=== PATIENT | female | born 1960 | race Caucasian/White ===

== ENCOUNTER 2016-07-12 13:32 | Emergency (ER) | payer OTHER ==
[2016-07-12] MEDS ORDERED: ACETAMINOPHEN 325 MG TABLET PO ONE (13:47)
[2016-07-12] MEDS ORDERED: HYDROCODONE/ACETAMINOPHEN 5-325 MG TABLET PO ONE (16:37)
--- NOTE | 2016-07-12 17:03 | ER Document Report ---
ED Fall - General Time seen by provider: 16:35 Mode of Arrival: Ambulatory Information source: Patient - HPI Patient complains to provider of: Left forearm and left lower extremity pain Occurred: Just prior to arrival Where: Outdoors Context: Fell from height Associated symptoms: Other - see above Location of injury/pain: Other - see above - General Chief Complaint: Fall Stated Complaint: FALL;SUNSHINE INJURY Notes: 55 year old female with history of CVA, hypertension, hyperlipidemia, asthma, COPD, and migraines presents to the ED complaining of left forearm and left lower extremity pain secondary to a fall that occurred just prior to arrival. Patient states that she had 1 foot on a ladder and the other on a 2'x4'. Without paying attention, the patient shifted her foot from the ladder to the 2' x4' which proceeded to give out under her. Patient fell 5 feet onto the grass and landed on her right side. Patient denies hitting her head or having any neck pain. Patient denies loss of consciousness. (SHAHRAM LEES) Past Medical History - General Information source: Patient - Social History Smoking Status: Unknown if Ever Smoked Family History: Reviewed & Not Pertinent Review of Systems - Review of Systems Constitutional: No symptoms reported EENT: No symptoms reported Cardiovascular: No symptoms reported Respiratory: No symptoms reported Gastrointestinal: No symptoms reported Genitourinary: No symptoms reported Female Genitourinary: No symptoms reported Musculoskeletal: See HPI, Other - left forearm and left lower extremity pain Skin: No symptoms reported Hematologic/Lymphatic: No symptoms reported Neurological/Psychological: No symptoms reported -: Yes All other systems reviewed and negative Physical Exam - General General appearance: Alert In distress: None - HEENT Head: Normocephalic, Atraumatic Eyes: Normal Extraocular movements intact: Yes Pupils: PERRL - Respiratory Respiratory status: No respiratory distress Breath sounds: Normal - Cardiovascular Rhythm: Regular Heart sounds: Normal auscultation Normal capillary refill: Yes - Abdominal Inspection: Normal - Back Back: Normal - Extremities General upper extremity: Normal ROM. No: Normal inspection - see forearm and wrist exam General lower extremity: Normal ROM. No: Normal inspection - see calf exam below Shoulder: Ecchymosis - swelling and ecchymosis to the anterior aspect of the left forearm. No: Normal Wrist: Ecchymosis - swelling and ecchymosis to the distal anterior aspect of the left wrist. No: Normal Calf: Ecchymosis - Ecchymosis and swelling to the medial aspect of the anterior tibia - Neurological Neuro grossly intact: Yes Cognition: Normal Orientation: AAOx4 David Coma Scale Eye Opening: Spontaneous David Coma Scale Verbal: Oriented David Coma Scale Motor: Obeys Commands [place] Coma Scale Total: 15 Speech: Normal - Psychological Associated symptoms: Normal affect, Normal mood - Skin Skin Temperature: Warm Skin Moisture: Dry Skin Color: Normal Course - Consults Dr. Ann Time consulted: 18:30 - Re-evaluation Re-evalutation: 07/12/16 19:28 I personally performed the services described in the documentation, reviewed and edited the documentation which was dictated to my scribe in my presence, and it accurately records my words and actions. Patient presents emergency Department with arm pain and leg pain. Patient states she tripped and fell off about 5 feet injuring her left forearm and left lower extremity. On x-ray she has a closed fibular fracture which is oblique with 3 mm of displacement posteriorly. She's been splinted crutches nonweightbearing pain control I contacted Dr. ann at 1830 with no return phone call. I instructed the patient call first thing in the morning to be seen in follow up in 2-3 days ice elevation no evidence of compartment syndrome return for increasing worsening or new symptoms (ANNY PERRY) - Vital Signs Vital signs: Temp Pulse Resp BP Pulse Ox 98.5 F 62 16 128/65 H 98 07/12/16 20:27 07/12/16 20:27 07/12/16 20:27 07/12/16 20:27 07/12/16 20:27 - Consults Dr. Ann Reason for consultation: 07/12/16 18:30 Dr. Ann, orthopedist, was paged and will call back. (SHAHRAM LEES) Discharge - Discharge Clinical Impression: Closed fibular fracture Qualifiers: Encounter type: initial encounter Fibula location: distal Fracture morphology: unspecified fracture morphology Laterality: left Qualified Code(s): S82.832A - Other fracture of upper and lower end of left fibula, initial encounter for closed fracture Condition: Stable Disposition: HOME, SELF-CARE Additional Instructions: Fracture of Distal Fibula You have a fracture at the end of the fibula, the smaller bone in the lower leg. The fracture is across the bony bump on the outer side of the ankle. This fracture will usually heal well, but must be protected from the pull of ligaments and tendons at the ankle. If this fracture rotates out of position (or is felt likely to rotate), it must be operated on. Initially, the extremity should be kept elevated, with ice packs applied frequently. This fracture is usually treated with a cast or walking boot. If a walking boot has been selected, it's critical that it NOT be removed without the doctor's approval, not even for sleeping or baths. Healing of this fracture takes about four to eight weeks. Younger patients heal more quickly. An X-ray is usually required during healing to check for complications and to assess healing. Call the doctor or return at once if there is severe swelling, increasing pain, or numbness in the foot. Prescriptions: Oxycodone HCl/Acetaminophen [Percocet 5-325 mg Tablet] 1 - 2 tab PO Q4H PRN #15 tablet PRN Reason: Referrals: SHELBY HERNANDEZ MD [ACTIVE STAFF] - Follow up in 3-5 days (Call his office first thing in the morning to be seen and evaluated in 2-3 days return for increasing worsening or new symptoms. Do not put weight on your leg.) Scribe Documentation - Scribe Written by Bonilla:: Bonilla Sharma, 07/12/2016 0764 acting as scribe for :: Roderick
[2016-07-12 20:51] VITALS: BP 128/65
== END 2016-07-12 20:35 | disposition home or self-care (01) ==
LOC: ER 13:32
PROC: 2W3RX1Z Immobilization of Left Lower Leg using Splint (ICD-10-PCS; principal; 2016-07-12)
DX: S82.432A Displaced oblique fracture of shaft of left fibula, initial encounter for closed fracture (principal); S60.212A Contusion of left wrist, initial encounter; S50.12XA Contusion of left forearm, initial encounter; M79.632 Pain in left forearm; W11.XXXA Fall on and from ladder, initial encounter; I10 Essential (primary) hypertension; J45.909 Unspecified asthma, uncomplicated; J44.9 Chronic obstructive pulmonary disease, unspecified; Z86.73 Personal history of transient ischemic attack (TIA), and cerebral infarction without residual deficits
CPT/HCPCS: 99284

== ENCOUNTER 2016-07-28 20:52 | Emergency (ER) | payer OTHER, MEDICARE, MEDICAID ==
[2016-07-28 21:20] VITALS: BP 123/50
--- NOTE | 2016-07-28 21:45 | ER Document Report ---
ED Medical Screen (RME) - General Stated Complaint: LEG PAIN Notes: History is a 55-year-old female presents emergency Department with complaints of pain over left foot. Patient has a positive oblique distal fibula fracture. Patient is still in a splint and using crutches she has not followed up with surgery due to referral from [place] taking so long. I have counseled supervising physician Dr Moni Vaughn regarding this patient since she had evaluated her on intial diagnosis. She has recommended an US of the LE I have greeted and performed a rapid initial assessment of this patient. A comprehensive ED assessment and evaluation of the patient, analysis of test results and completion of the medical decision making process will be conducted by additional ED providers. (AVINASH SCHULTE) - Related Data Allergies/Adverse Reactions: codeine Adverse Reaction (Verified 07/28/16 21:43) Doctor's Discharge - Discharge Clinical Impression: Leg pain, left, s/p fibular fracture Condition: Stable Disposition: HOME, SELF-CARE Additional Instructions: Leg Pain, Nonspecific We did not find an obvious cause for your leg pain. There's no sign of blood clot, infection, or other serious disease. Possible causes of vague leg pain include muscle or joint inflammation, disc disease in the lower back, pressure on the nerves in the back, or reduced blood flow through the arteries of the leg. Rest the leg. Pain can be eased with an antiinflammatory pain medicine such as ibuprofen. If the pain involves a small area, a heating pad might help. Call the doctor or return if the leg becomes swollen, weak, discolored, or increasingly painful, or if you develop any other significant change in your health. I am giving her information to our manager case management see if she can get she will [facility]. Also having you come back tomorrow for a duplex ultrasound of the left lower extremity to make sure he would've a blood clot. Return for increasing worsening or new symptoms Forms: Follow-Up Outpatient Testing
[2016-07-28] MEDS ORDERED: ACETAMINOPHEN 325 MG TABLET PO ONE (21:52)
--- NOTE | 2016-07-28 22:56 | ER Document Report ---
ED Extremity Problem, Lower - General Mode of Arrival: Ambulatory Information source: Patient TRAVEL OUTSIDE OF THE [place] IN LAST 30 DAYS: No - General Chief Complaint: Leg Pain Stated Complaint: LEG PAIN Notes: Patient is a 55-year-old female that presents to the emergency department today with complaints of left lower extremity pain. Patient had a distal tib/fib fracture one month ago. Patient states she has not yet seen an orthopedic surgeon because [facility] Patient complains of left lower calf swelling. Patient denies shortness of breath. (AASHISH FRANCO) - Related Data Allergies/Adverse Reactions: codeine Adverse Reaction (Verified 07/28/16 21:43) Past Medical History - General Information source: Patient - Social History Smoking Status: Former Smoker Cigarette use (# per day): No Chew tobacco use (# tins/day): No Frequency of alcohol use: Occasional Drug Abuse: None Lives with: Family Family History: Reviewed & Not Pertinent Patient has suicidal ideation: No Patient has homicidal ideation: No - Medical History Medical History: Negative Surgical Hx: Negative Review of Systems - Review of Systems Constitutional: No symptoms reported EENT: No symptoms reported Cardiovascular: No symptoms reported Respiratory: No symptoms reported Gastrointestinal: No symptoms reported Genitourinary: No symptoms reported Female Genitourinary: No symptoms reported Musculoskeletal: See HPI, Other - LLE pain and swelling Skin: No symptoms reported Hematologic/Lymphatic: No symptoms reported Neurological/Psychological: No symptoms reported -: Yes All other systems reviewed and negative Physical Exam - General General appearance: Appears well, Alert In distress: None - HEENT Head: Normocephalic, Atraumatic Eyes: Normal Conjunctiva: Normal - Respiratory Respiratory status: No respiratory distress Chest status: Nontender Breath sounds: Normal - Cardiovascular Rhythm: Regular - Abdominal Inspection: Normal Distension: No distension Bowel sounds: Normal - Extremities General upper extremity: Normal inspection, Normal ROM. No: Edema General lower extremity: Other - Cast in place to left lower quadrant. Neurovascularly intact. Brisk capillary refill with good perfusion. No calf swelling. - Neurological Neuro grossly intact: Yes Cognition: Normal Orientation: AAOx4 Speech: Normal - Psychological Associated symptoms: Normal affect, Normal mood - Skin Skin Temperature: Warm Skin Moisture: Dry Skin Color: Normal Course - Re-evaluation Re-evalutation: 07/28/16 23:41 I personally performed the services described in the documentation, reviewed and edited the documentation which was dictated to my scribe in my presence, and it accurately records my words and actions. Patient presents emergency per chief plain and calf pain. I saw the patient on 221 diagnosed her with a distal fibular fracture splinted crutches nonweightbearing follow up with her primary care orthopedist. She states [facility] and she will be able to see an orthopedic surgeon for 6 months. She denies any new injuries numbness tingling weakness. She still has the same splint on that she had on when she was here. The [facility] outfront noticeable calf tenderness so she ordered a DVT ultrasound. Explained to the patient and the that it is not reasonable to wait 6 months to see an orthopedic surgeons make a decision on what the management needs to be surgical versus nonsurgical. I cannot Tawnya as she appropriately needs done. I'm going to give her information to the briefcase sewer when she gets here in the morning so she can review call the patient and try to find her a closer appointment with orthopedic. She states that she can't go anywhere but the [place] or [employer] pay poole. 07/28/16 23:53 (ANNY PERRY) - Vital Signs Vital signs: Temp Pulse Resp BP Pulse Ox 96.8 F L 75 18 123/50 L 96 07/29/16 00:30 07/29/16 00:30 07/29/16 00:30 07/28/16 21:19 07/29/16 00:30 Discharge - Discharge Clinical Impression: Leg pain, left, s/p fibular fracture Condition: Stable Disposition: HOME, SELF-CARE Additional Instructions: Leg Pain, Nonspecific We did not find an obvious cause for your leg pain. There's no sign of blood clot, infection, or other serious disease. Possible causes of vague leg pain include muscle or joint inflammation, disc disease in the lower back, pressure on the nerves in the back, or reduced blood flow through the arteries of the leg. Rest the leg. Pain can be eased with an antiinflammatory pain medicine such as ibuprofen. If the pain involves a small area, a heating pad might help. Call the doctor or return if the leg becomes swollen, weak, discolored, or increasingly painful, or if you develop any other significant change in your health. I am giving her information to our briefcase sewer see if she can get she will [facility]. Also having you come back tomorrow for a duplex ultrasound of the left lower extremity to make sure he would've a blood clot. Return for increasing worsening or new symptoms Forms: Follow-Up Outpatient Testing Scribe Documentation - Scribe Written by Bonilla:: Bonilla Rowley, 07/29/2016 0032 acting as scribe for :: Roderick
== END 2016-07-29 00:30 | disposition home or self-care (01) ==
LOC: ER 20:52
DX: S82.402D Unspecified fracture of shaft of left fibula, subsequent encounter for closed fracture with routine healing (principal); M79.605 Pain in left leg; Z87.891 Personal history of nicotine dependence; X58.XXXD Exposure to other specified factors, subsequent encounter
CPT/HCPCS: 99283

== ENCOUNTER 2016-11-12 18:07 | Emergency (ER) | payer OTHER, MEDICARE, MEDICAID ==
[2016-11-12] MEDS ORDERED: ASPIRIN 81 MG TABLET, CHEWABLE PO ONE (18:34)
--- NOTE | 2016-11-12 18:41 | ER Document Report ---
ED Medical Screen (RME) - General Chief Complaint: Chest Pain Stated Complaint: CHEST PAIN, ARM PAIN Time Seen by Provider: 11/12/16 18:33 TRAVEL OUTSIDE OF THE [place] IN LAST 30 DAYS: No - HPI Notes: 11/12/16 18:40 Patient presents with chest pain ongoing greater than 24 hours with associated shortness of breath. Patient had a recent CT [facility] that was [facility]. Patient also currently is in a walking boot due to broken tib-fib with recent travel - Related Data Allergies/Adverse Reactions: codeine Adverse Reaction (Verified 11/12/16 18:11) Past Medical History Renal/ Medical History: Denies: Hx Peritoneal Dialysis Review of Systems - Review of Systems Cardiovascular: Chest pain, Dyspnea Physical Exam - Vital signs Vitals: Temp Pulse Resp BP Pulse Ox 98.9 F 96 18 125/82 96 11/12/16 18:12 11/12/16 18:12 11/12/16 18:12 11/12/16 18:12 11/12/16 18:12 - Cardiovascular Rhythm: Regular Heart sounds: Normal auscultation Course - Vital Signs Vital signs: Temp Pulse Resp BP Pulse Ox 98.9 F 96 18 125/82 96 11/12/16 18:12 11/12/16 18:12 11/12/16 18:12 11/12/16 18:12 11/12/16 18:12
[2016-11-12 19:01] LABS: ABSOLUTE EOSINOPHILS # (AUTO) 0.1 10^3/uL (0.0-0.6); ABSOLUTE LYMPHOCYTES (AUTO) 1.8 10^3/uL (0.5-4.7); ABSOLUTE MONOCYTES (AUTO) 0.4 10^3/uL (0.1-1.4); ABSOLUTE NEUT (AUTO) 3.5 10^3/uL (1.7-8.2); BASOPHILS % (AUTO) 0.8 % (0-2); EOSINOPHILS % (AUTO) 1.5 % (0-6); HEMATOCRIT 42.8 % (36.0-47.0); HEMOGLOBIN 13.9 g/dL (12.0-15.5); HGB HCT DIFFERENCE -1.1; LYMPHOCYTES % (AUTO) 30.6 % (13-45); MEAN CORPUSCULAR HEMOGLOBIN 28.6 pg (27.0-33.4); MEAN CORPUSCULAR HGB CONC 32.5 g/dL (32.0-36.0); MEAN CORPUSCULAR VOLUME 88 fl (80-97); MONOCYTES % (AUTO) 6.6 % (3-13); RED BLOOD COUNT 4.87 10^6/uL (3.72-5.28); RED CELL DISTRIBUTION WIDTH 13.7 % (11.5-14.0); SEGMENTED NEUTROPHILS % (AUTO) 60.5 % (42-78); WHITE BLOOD COUNT 5.8 10^3/uL (4.0-10.5)
[2016-11-12 19:05] LABS: PROTHROMBIN TIME 12.9 SEC (11.4-15.4)
--- NOTE | 2016-11-12 19:05 | RADIOLOGY REPORT (SQ) ---
EXAM DESCRIPTION: CHEST PA/LAT COMPLETED DATE/TIME: 11/12/2016 6:58 pm REASON FOR STUDY: cp COMPARISON: None. EXAM PARAMETERS: NUMBER OF VIEWS: two views TECHNIQUE: Digital Frontal and Lateral radiographic views of the chest acquired. RADIATION DOSE: NA LIMITATIONS: none FINDINGS: LUNGS AND PLEURA: No opacities, masses or pneumothorax. No pleural effusion. MEDIASTINUM AND HILAR STRUCTURES: No masses or contour abnormalities. HEART AND VASCULAR STRUCTURES: Heart normal size. No evidence for failure. BONES: No acute findings. HARDWARE: None in the chest. OTHER: No other significant finding. IMPRESSION: NO SIGNIFICANT RADIOGRAPHIC FINDING IN THE CHEST. TECHNICAL DOCUMENTATION: JOB ID: [id number] [employer]- All Rights Reserved
[2016-11-12 19:08] LABS: D-DIMER 0.31 ug/mL (0.00-0.50)
[2016-11-12 19:16] LABS: ALANINE AMINOTRANSFERASE 44 U/L (9-52); ALBUMIN 4.5 g/dL (3.5-5.0); ALKALINE PHOSPHATASE 91 U/L (38-126); ANION GAP 13 (5-19); ASPARTATE AMINO TRANSFERASE 33 U/L (14-36); BILIRUBIN,DIRECT 0.3 mg/dL (0.0-0.4); BILIRUBIN,TOTAL 0.6 mg/dL (0.2-1.3); BLOOD UREA NITROGEN 13 mg/dL (7-20); CALCIUM 9.7 mg/dL (8.4-10.2); CARBON DIOXIDE 23 mmol/L (22-30); CHLORIDE 108 mmol/L (98-107); CREATINE KINASE 41 U/L (30-135); CREATININE RESULT 1.02 mg/dL (0.52-1.25); GLUCOSE 128 mg/dL (75-110); LIPASE 133.7 U/L (23-300); POTASSIUM 3.9 mmol/L (3.6-5.0); TOTAL PROTEIN 7.7 g/dL (6.3-8.2)
[2016-11-12 19:27] LABS: CREATINE KINASE MB 0.44 ng/mL (<4.55)
[2016-11-12 19:36] LABS: TROPONIN I < 0.012 ng/mL
--- NOTE | 2016-11-12 19:36 | ER Document Report ---
ED General - General Chief Complaint: Chest Pain Stated Complaint: CHEST PAIN, ARM PAIN Time Seen by Provider: 11/12/16 18:33 Mode of Arrival: Ambulatory Information source: Patient Notes: 55-year-old female history of hypertension hyperlipidemia brain aneurysm presents with complaints of chest pain. Patient notes 2 weeks ago she started having sharp pains in her chest, the pain then moved over to left-sided chest as a pressure sensation with feeling warm down the left arm to the neck. Patient also admits to feeling off balance joint pains TRAVEL OUTSIDE OF THE [place] IN LAST 30 DAYS: No - HPI Onset: Other - 2 week duration Onset/Duration: Persistent Quality of pain: Pressure, Sharp Severity: Mild Pain Level: 1 Associated symptoms: Chest pain, Other Exacerbated by: Denies Relieved by: Denies Similar symptoms previously: No Recently seen / treated by doctor: No - Related Data Allergies/Adverse Reactions: codeine Adverse Reaction (Verified 11/12/16 18:11) Past Medical History - Social History Smoking Status: Never Smoker Cigarette use (# per day): No Chew tobacco use (# tins/day): No Smoking Education Provided: No Family History: Reviewed & Not Pertinent Patient has suicidal ideation: No Patient has homicidal ideation: No Renal/ Medical History: Denies: Hx Peritoneal Dialysis Review of Systems - Review of Systems Notes: REVIEW OF SYSTEMS: CONSTITUTIONAL : Denies fever, chills, or sweats. Denies recent illness. EENT: Denies eye, ear, throat, or mouth pain or symptoms. Denies nasal or sinus congestion or discharge. Denies throat, tongue, or mouth swelling or difficulty swallowing. CARDIOVASCULAR: admits to chest pain RESPIRATORY: Denies cough, cold, or chest congestion. Denies shortness of breath, difficulty breathing, or wheezing. GASTROINTESTINAL: Denies abdominal pain or distention. Denies nausea, vomiting , or diarrhea. Denies blood in vomitus, stools, or per rectum. Denies black, tarry stools. Denies constipation. GENITOURINARY: Denies difficulty urinating, painful urination, burning, frequency, blood in urine, or discharge. FEMALE GENITOURINARY: Denies vaginal bleeding, heavy or abnormal periods, irregular periods. Denies vaginal discharge or odor. MUSCULOSKELETAL: Denies back or neck pain or stiffness. Denies joint pain or swelling. SKIN: Denies rash, lesions or sores. HEMATOLOGIC : Denies easy bruising or bleeding. LYMPHATIC: Denies swollen, enlarged glands. NEUROLOGICAL: admits to headache PSYCHIATRIC: Denies anxiety or stress. Denies depression, suicidal ideation, or homicidal ideation. ALL OTHER SYSTEMS REVIEWED AND NEGATIVE. PHYSICAL EXAMINATION: GENERAL: Well-appearing, well-nourished and in no acute distress. HEAD: Atraumatic, normocephalic. EYES: Pupils equal round and reactive to light, extraocular movements intact, conjunctiva are normal. ENT: Nares patent, oropharynx clear without exudates. Moist mucous membranes. NECK: Normal range of motion, supple without lymphadenopathy LUNGS: Breath sounds clear to auscultation bilaterally and equal. No wheezes rales or rhonchi. HEART: Regular rate and rhythm without murmurs ABDOMEN: Soft, nontender, nondistended abdomen. No guarding, no rebound. No masses appreciated. Female : deferred Musculoskeletal: Normal range of motion, no pitting or edema. No cyanosis. NEUROLOGICAL: Cranial nerves grossly intact. Normal speech, normal gait. Normal sensory, motor exams PSYCH: Normal mood, normal affect. SKIN: Warm, Dry, normal turgor, no rashes or lesions noted. Dictation was performed using [employer] voice recognition software Physical Exam - Vital signs Vitals: Temp Pulse Resp BP Pulse Ox 98.9 F 96 18 125/82 96 11/12/16 18:12 11/12/16 18:12 11/12/16 18:12 11/12/16 18:12 11/12/16 18:12 Course - Re-evaluation Re-evalutation: 11/12/16 19:42 Patient has very vague complaints of headache chest pain joint pain, lab work imaging is pending at this time 11/12/16 21:20 CTA head chest abdomen no no acute abnormality, patient otherwise looks well. Given that the chest pains been ongoing now for 2 weeks I do not believe there is any life-threatening issues especially with negative workup. Patient has been instructed that she must follow up with primary care evaluate symptoms and very strict return precautions have been provided After performing a Medical Screening Examination, I estimate there is LOW risk for RUPTURED ESOPHAGUS, PNEUMOTHORAX, PULMONARY EMBOLISM, ACUTE CORONARY SYNDROME, OR THORACIC AORTIC DISSECTION, thus I consider the discharge disposition reasonable. I have reevaluated this patient multiple times and no significant life threatening changes are noted. The patient and I have discussed the diagnosis and risks, and we agree with discharging home with close follow-up. We also discussed returning to the Emergency Department immediately if new or worsening symptoms occur. We have discussed the symptoms which are most concerning (e.g., bloody sputum, worsening pain or shortness of breath) that necessitate immediate return. - Vital Signs Vital signs: Temp Pulse Resp BP Pulse Ox 98.9 F 96 16 118/65 98 11/12/16 18:12 11/12/16 18:12 11/12/16 21:09 11/12/16 21:09 11/12/16 21:09 - Laboratory Result Diagrams: 11/12/16 18:46 11/12/16 18:46 Laboratory results interpreted by me: 11/12/16 18:46 Chloride 108 H Est GFR (Non-Af Amer) 56 L Glucose 128 H - Diagnostic Test Radiology reviewed: Image reviewed, Reports reviewed - Image reports given to patient no acute abnormality - EKG Interpretation by Me EKG shows normal: Sinus rhythm, [place], Intervals, QRS Complexes Discharge - Discharge Clinical Impression: Body aches Joint pain Qualifiers: Joint pain location: unspecified Qualified Code(s): M25.50 - Pain in unspecified joint Chest pain Qualifiers: Chest pain type: unspecified Qualified Code(s): R07.9 - Chest pain, unspecified Condition: Stable Disposition: HOME, SELF-CARE Instructions: Chest Pain of Unclear Cause ([facility]) Additional Instructions: Follow up with your physician tomorrow for further care or return to the ED IMMEDIATELY if symptoms worsen or new concerns occur. If you cannot afford to follow up with your primary care physician a list of low cost clinics have been provided at the end of your discharge papers as well.
[2016-11-12] MEDS ORDERED: NORMAL SALINE 1000 ML 1,000 ML IV ONE (20:56)
--- NOTE | 2016-11-12 21:06 | RADIOLOGY REPORT (SQ) ---
EXAM DESCRIPTION: CTA CHEST COMPLETED DATE/TIME: 11/12/2016 8:48 pm REASON FOR STUDY: CARCAMO, hx of aneurysm COMPARISON: None. TECHNIQUE: CT scan of the chest performed using helical scanning technique with dynamic intravenous contrast injection. Images reviewed with lung, soft tissue and bone windows. Reconstructed coronal and sagittal MPR images reviewed. Additional 3 dimensional post-processing performed to develop Maximal Intensity Projection images (AR P). All images stored on PACS. All CT scanners at this facility use dose modulation, iterative reconstruction, and/or weight based d osing when appropriate to reduce radiation dose to as low as reasonably achievable (ALARA). [facility]: Dose Right [facility]: CareDose [facility]: Dose Right [facility]: Teradose 4D [facility]: Kngroo CONTRAST TYPE AND DOSE: 150 mL Isovue 300- low osmolar. RENAL FUNCTION: BUN 13; creatinine 1.02 RADIATION DOSE: Up-to-date CT equipment and radiation dose reduction techniques were employed. CTDIv ol: 29.8 mGy. DLP: 1112 mGy-cm. . LIMITATIONS: None. FINDINGS: LUNGS AND PLEURA: No masses, infiltrates, pneumothorax. No pleural effusions, calcificati ons. AORTA AND GREAT VESSELS: No aneurysm or dissection. HEART: No pericardial effusion. PULMONARY ARTERIES: No emboli visualized in the main pulmonary arteries or the segmental branches. HILAR AND MEDIASTINAL STRUCTURES: No identified masses or abnormal nodes. HARDWARE: None in the chest. UPPER ABDOMEN: Incidental note is made of a 1.5 cm nodule involving the body of the right adrenal gla nd ; this is incompletely evaluated. THYROID AND OTHER SOFT TISSUES: No masses. No adenopathy. BONES: No acute or significant finding. 3D MIPS: Confirm above findings. OTHER: No other significant finding. IMPRESSION: 1. NORMAL CTA OF THE CHEST. NO PULMONARY EMBOLI. 2. 1.5 cm nodular thickening of the right adrenal gland; this is incompletely evaluated. Recommend dedicated CT or MR imaging on an outpatient basis. TECHNICAL DOCUMENTATION: JOB ID: [id number] Quality ID # [id number]: Final reports with documentation of one or more dose reduction techniques (e.g., Au tomated exposure control, adjustment of the mA and/or kV according to patient size, use of iterative reconstruction technique) 2010 [employer]- All Rights Reserved
--- NOTE | 2016-11-12 21:16 | RADIOLOGY REPORT (SQ) ---
EXAM DESCRIPTION: CTA HEAD COMPLETED DATE/TIME: 11/12/2016 8:49 pm REASON FOR STUDY: CARCAMO, hx of aneurysm COMPARISON: None. TECHNIQUE: Post IV contrast scanning, thin section axial imaging through the brain to evaluate the a rterial structures. Source and MIP images are saved and reviewed on PACS. Advanced 3D imaging as volume-rendering, MIPs, SSD performed? yes All CT scanners at this facility use dose modulation, iterative reconstruction, and/or weight based d osing when appropriate to reduce radiation dose to as low as reasonably achievable (ALARA). [facility]: Dose Right [facility]: CareDose [facility]: Dose Right [facility]: Teradose 4D [facility]: [employer] CONTRAST TYPE AND DOSE: contrast/concentration: Isovue 370.00 mg/ml; Total Contrast Delivered: 70.0 ml; Total Saline Delivered: 75.0 ml RENAL FUNCTION: BUN 13; creatinine 1.02 LIMITATIONS: Apparent aneurysm coil results in beam hardening artifact limiting evaluation of the an terior components of the [place] of [place]. Additionally, this was performed in conjunction with a CT A of the chest, resulting in partially opacified venous structures. FINDINGS: [place]: A metallic aneurysm coil is seen in the expected location of the anterio r communicating artery, limiting evaluation of the surrounding soft tissues. The visualized segments of the anterior, middle, posterior cerebral arteries are all patent. No evidence of aneurysm or foc al stenosis. POSTERIOR CIRCULATION: The distal vertebral arteries are patent as is the basilar artery. No aneurysm . BRAIN: No gross enhancing lesions as visualized. The superior cerebral hemispheres are not included in the field of view. BONES: Intact as visualized. Incidental note is made of partially sclerosed right mastoid air cells consistent with sequela of previous chronic mastoiditis. SINUSES: No fluid or mucosal thickening. OTHER: No other significant finding. IMPRESSION: Vascular coil is seen in the expected location of the anterior communicating artery limi ting evaluation of the adjacent structures. No evidence of aneurysm, intracranial hemorrhage, or enh ancing lesion. TECHNICAL DOCUMENTATION: JOB ID: [id number] Quality ID # [id number]: Final reports with documentation of one or more dose reduction techniques (e.g., Au tomated exposure control, adjustment of the mA and/or kV according to patient size, use of iterative reconstruction technique) 2010 [employer]- All Rights Reserved
[2016-11-12 22:12] VITALS: BP 123/64
--- NOTE | 2016-11-12 22:17 | EKG REPORT ---
SEVERITY:- NORMAL ECG - SINUS RHYTHM : Confirmed by: Baylee Monsalve 12-Nov-2016 22:16:19
== END 2016-11-12 22:06 | disposition home or self-care (01) ==
LOC: ER 18:07
DX: R07.9 Chest pain, unspecified (principal); M25.50 Pain in unspecified joint; M79.602 Pain in left arm; I10 Essential (primary) hypertension; E78.5 Hyperlipidemia, unspecified; R52 Pain, unspecified
CPT/HCPCS: 93005; 99285; 96360; 36415; 82553; 82550; 83690; 85025; 85610; 80053; 84484; 85379; 71020; 70496; 71275; 93010; J7030

== ENCOUNTER 2017-03-21 17:10 | Emergency (ER) | payer OTHER, MEDICARE, MEDICAID ==
--- NOTE | 2017-03-21 18:11 | ER Document Report ---
ED Medical Screen (RME) - General Chief Complaint: Fall Stated Complaint: HEAD INJURY Time Seen by Provider: 03/21/17 18:10 Notes: Patient has a history of a coiled brain aneurysm. She is on Plavix. She states she had several martinis 3 days ago and fell and hit her head in the bathtub. She states she does not remember the incident. states that he brought the patient in the emergency department because she has been having some dizziness and confusion. She has had some nausea but no vomiting. She states her last alcoholic drink was 3 days ago. TRAVEL OUTSIDE OF THE [place] IN LAST 30 DAYS: No - Related Data Allergies/Adverse Reactions: codeine Adverse Reaction (Verified 03/21/17 17:19) Past Medical History - Social History Chew tobacco use (# tins/day): No Frequency of alcohol use: Social Drug Abuse: None - Past Medical History Cardiac Medical History: Reports: Hx Hypercholesterolemia, Hx Hypertension Renal/ Medical History: Denies: Hx Peritoneal Dialysis Past Surgical History: Reports: Hx Abdominal Surgery, Hx Hysterectomy - Immunizations Hx Diphtheria, Pertussis, Tetanus Vaccination: Yes History of Influenza Vaccine for 02/2017 - 07/2017 Season: No Physical Exam - Vital signs Vitals: Temp Pulse Resp BP Pulse Ox 98.9 F 87 18 130/72 H 97 03/21/17 17:17 03/21/17 17:17 03/21/17 17:17 03/21/17 17:17 03/21/17 17:17 Course - Vital Signs Vital signs: Temp Pulse Resp BP Pulse Ox 98.9 F 87 18 130/72 H 97 03/21/17 17:17 03/21/17 17:17 03/21/17 17:17 03/21/17 17:17 03/21/17 17:17
[2017-03-21 18:39] LABS: ABSOLUTE EOSINOPHILS # (AUTO) 0.1 10^3/uL (0.0-0.6); ABSOLUTE LYMPHOCYTES (AUTO) 1.8 10^3/uL (0.5-4.7); ABSOLUTE MONOCYTES (AUTO) 0.4 10^3/uL (0.1-1.4); ABSOLUTE NEUT (AUTO) 3.3 10^3/uL (1.7-8.2); BASOPHILS % (AUTO) 0.8 % (0-2); EOSINOPHILS % (AUTO) 1.4 % (0-6); HEMOGLOBIN 15.1 g/dL (12.0-15.5); HGB HCT DIFFERENCE 0.3; MEAN CORPUSCULAR HEMOGLOBIN 29.7 pg (27.0-33.4); MEAN CORPUSCULAR HGB CONC 33.5 g/dL (32.0-36.0); MEAN CORPUSCULAR VOLUME 89 fl (80-97); MONOCYTES % (AUTO) 6.8 % (3-13); RED BLOOD COUNT 5.08 10^6/uL (3.72-5.28); RED CELL DISTRIBUTION WIDTH 13.7 % (11.5-14.0); WHITE BLOOD COUNT 5.6 10^3/uL (4.0-10.5)
[2017-03-21 18:52] LABS: ALANINE AMINOTRANSFERASE 43 U/L (9-52); ALBUMIN 5.1 g/dL (3.5-5.0); ALKALINE PHOSPHATASE 84 U/L (38-126); ANION GAP 18 (5-19); ASPARTATE AMINO TRANSFERASE 36 U/L (14-36); BILIRUBIN,DIRECT 0.3 mg/dL (0.0-0.4); BILIRUBIN,TOTAL 0.8 mg/dL (0.2-1.3); BLOOD UREA NITROGEN 15 mg/dL (7-20); CALCIUM 9.9 mg/dL (8.4-10.2); CARBON DIOXIDE 25 mmol/L (22-30); CHLORIDE 105 mmol/L (98-107); CREATININE RESULT 1.08 mg/dL (0.52-1.25); GLUCOSE 89 mg/dL (75-110); SODIUM 147.7 mmol/L (137-145); TOTAL PROTEIN 8.3 g/dL (6.3-8.2)
--- NOTE | 2017-03-21 18:59 | RADIOLOGY REPORT (SQ) ---
EXAM DESCRIPTION: CT HEAD WITHOUT COMPLETED DATE/TIME: 03/21/2017 6:48 pm REASON FOR STUDY: fall/ams COMPARISON: None. TECHNIQUE: Axial images acquired through the brain without intravenous contrast. Images reviewed wi th bone, brain and subdural windows. Images stored on PACS. All CT scanners at this facility use dose modulation, iterative reconstruction, and/or weight based d osing when appropriate to reduce radiation dose to as low as reasonably achievable (ALARA). [facility]: Dose Right [facility]: CareDose [facility]: Dose Right [facility]: Teradose 4D [facility]: [employer] RADIATION DOSE: Up-to-date CT equipment and radiation dose reduction techniques were employed. CTDIv ol: 64.6 mGy. DLP: 1034 mGy-cm. mGy. LIMITATIONS: None. FINDINGS: VENTRICLES: Normal size and contour. CEREBRUM: No masses. No hemorrhage. No midline shift. No evidence for acute infarction. Normal gra y/white matter differentiation. No areas of low density in the white matter. CEREBELLUM: No masses. No hemorrhage. No alteration of density. No evidence for acute infarction. EXTRAAXIAL SPACES: No fluid collections. No masses. ORBITS AND GLOBE: No intra- or extraconal masses. Normal contour of globe without masses. CALVARIUM: No fracture. PARANASAL SINUSES: No fluid or mucosal thickening. SOFT TISSUES: No mass or hematoma. OTHER: There is a small clip near the midline just above the pituitary fossa. IMPRESSION: No acute intracranial findings. EVIDENCE OF ACUTE STROKE: NO. COMMENT: Quality ID # 436: Final reports with documentation of one or more dose reduction techniques (e.g., Automated exposure control, adjustment of the mA and/or kV according to patient size, use of iterative reconstruction technique) TECHNICAL DOCUMENTATION: JOB ID: [id number] [employer]- All Rights Reserved
[2017-03-21 19:00] LABS: ALCOHOL < 10 mg/dL (NONE DETECTED)
[2017-03-21 19:02] LABS: APPEARANCE,URINE SLIGHTLY-CLOUDY; BILIRUBIN,URINE NEGATIVE (NEGATIVE); GLUCOSE, URINE NEGATIVE (NEGATIVE); KETONES,URINE NEGATIVE (NEGATIVE); LEUKOCYTE ESTERASE,URINE NEGATIVE (NEGATIVE); NITRITE,URINE NEGATIVE (NEGATIVE); PROTEIN,URINE NEGATIVE (NEGATIVE); UROBILINOGEN,URINE NEGATIVE mg/dL (<2.0)
[2017-03-21 19:11] LABS: URINE BARBITURATES SCREEN NEGATIVE; URINE METHADONE SCREEN NEGATIVE; URINE OPIATES LOW NEGATIVE; URINE PHENCYCLIDINE SCREEN NEGATIVE
--- NOTE | 2017-03-21 20:03 | ER Document Report ---
ED Fall - General Chief Complaint: Fall Stated Complaint: HEAD INJURY Time Seen by Provider: 03/21/17 18:10 Notes: Patient says that she fell 4 days ago and hit the left side of her head does not remember exactly what happened. says she was not unconscious but was confused. She had been drinking a few martinis before the fall. She complains of pain of the left side of her head, blurry vision, feeling foggy, and balance off, although she can walk. Patient has had some nausea but has not vomited. No fevers. TRAVEL OUTSIDE OF THE [place] IN LAST 30 DAYS: No - Related data Allergies/Adverse Reactions: codeine Adverse Reaction (Verified 03/21/17 17:19) Past Medical History - Social History Smoking Status: Never Smoker Chew tobacco use (# tins/day): No Frequency of alcohol use: Social Drug Abuse: None Family History: Reviewed & Not Pertinent Patient has suicidal ideation: No Patient has homicidal ideation: No - Past Medical History Cardiac Medical History: Reports: Hx Hypercholesterolemia, Hx Hypertension Neurological Medical History: Reports: Hx Cerebrovascular Accident - 4 years ago , Hx Migraine Past Surgical History: Reports: Hx Abdominal Surgery, Hx Appendectomy, Hx Hysterectomy - Immunizations Hx Diphtheria, Pertussis, Tetanus Vaccination: Yes Review of Systems - Review of Systems Notes: REVIEW OF SYSTEMS: CONSTITUTIONAL : Denies fever. EENT: Denies eye, ear, nose or mouth or throat pain or other symptoms. CARDIOVASCULAR: Denies chest pain. RESPIRATORY: Denies cough, chest congestion, or shortness of breath. GASTROINTESTINAL: Denies abdominal pain or nausea, vomiting, or diarrhea. GENITOURINARY: Denies difficulty or painful urinating, urinary frequency, blood in urine. MUSCULOSKELETAL: Denies back or neck pain. Denies joint pain or swelling. History of fractured left leg and fractured left foot. SKIN: Denies rash or skin lesions. NEUROLOGICAL: Denies LOC or altered mental status. Has had headache of the left side of her head. Denies sensory loss or motor deficits. ALL OTHER SYSTEMS REVIEWED AND NEGATIVE. Physical Exam - Vital signs Vitals: Temp Pulse Resp BP Pulse Ox 98.9 F 87 18 130/72 H 97 03/21/17 17:17 03/21/17 17:17 03/21/17 17:17 03/21/17 17:17 03/21/17 17:17 Interpretation: Normal - Notes Notes: PHYSICAL EXAMINATION: GENERAL: Well-appearing, in no acute distress. Ambulatory without assistance. Vital signs are all normal. HEAD: Atraumatic, normocephalic. Tender left scalp, but no hematoma or soft tissue swelling present. EYES: Pupils equal round and reactive to light, extraocular movements intact. No nystagmus. ENT: oropharynx clear without exudates. Moist mucous membranes. NECK: Normal range of motion, supple. LUNGS: Breath sounds clear and equal bilaterally. HEART: Regular rate and rhythm without murmurs. ABDOMEN: Soft, nontender. No guarding or rebound. BACK: No tenderness throughout entire back. EXTREMITIES: Normal range of motion without pain. NEUROLOGICAL: Normal speech, normal gait. Normal sensory, motor, and reflex exams. Awake, alert, and oriented x3. Cranial nerves normal. PSYCH: Normal mood, normal affect. SKIN: Warm, dry, no rashes. Course - Vital Signs Vital signs: Temp Pulse Resp BP Pulse Ox 98 F 88 18 130/78 H 98 03/21/17 20:11 03/21/17 20:11 03/21/17 20:11 03/21/17 20:11 03/21/17 20:11 - Laboratory Result Diagrams: 03/21/17 18:10 03/21/17 18:10 Laboratory results interpreted by me: 03/21/17 03/21/17 18:10 18:10 Sodium 147.7 H Est GFR (Non-Af Amer) 53 L Total Protein 8.3 H Albumin 5.1 H Urine Ascorbic Acid 40 H - Diagnostic Test Radiology reviewed: Image reviewed, Reports reviewed - CT scan of the brain was normal. Discharge - Discharge Clinical Impression: Fall, Head injury, Concussion Condition: Stable Disposition: HOME, SELF-CARE Additional Instructions: HEAD INJURY PRECAUTIONS: At this point, there is no evidence that your head injury is serious. Observation is necessary, however. Take only clear liquids for the first few hours, unless told otherwise by the doctor. If no pain medication was prescribed, you may take acetaminophen according to the directions on the bottle. Do not take any medication that may alter your level of alertness (unless you've discussed it with the doctor first) . Limit activity for the first 24 hours. Bed rest is best. During the first 24 hours, check to see approximately every two to three hours that the patient is easily arousable, responds normally, and can perform common tasks such as walking without difficulty. Contact your doctor or go to the hospital if any of the following things occur: Persistent vomiting, difficulty in arousing the patient, worsening or continued headache, or failure to improve as expected. Head injuries can cause symptoms that persist for a few days or even a few weeks. Concussion You most likely have suffered a concussion -- a temporary loss of certain brain functions due to a mild brain injury. The recovery is usually rapid and complete. The temporary problems occurring with a concussion can include loss of consciousness, dizziness, nausea, vomiting, and confusion. Repeat concussions can cause brain damage. In the future, avoid activities that will cause a blow to your head. Wear a helmet for sports such as snowboarding, biking, or skating. It's important that someone be with you for the first 24 hours. During this time, do not exercise or drive a vehicle. Do not take any pain medication stronger than acetaminophen unless prescribed by the physician. Any significant changes should be reported immediately to the physician. Signs of a problem may include: (1) Mental confusion (2) Incoordination or staggering (3) Repeated or forceful vomiting (4) Clear or bloody drainage from ear, mouth, or nose (5) Severe headache, not relieved by acetaminophen or prescribed pain medication (6) Failure to improve in 24 hours NECK INJURY (CERVICAL STRAIN): You have a neck strain. This is an injury to the muscles and ligaments in the neck. There is no evidence of a fracture of the neck bones. Also, no injury to the spinal cord or nerve roots was detected. Usually, stiffness and pain INCREASE for the first 24-48 hours after the injury. The pain will gradually resolve and the neck will become more mobile. Most patients are back at work or school within a few days. Typically, complete healing takes about two or three weeks. The usual initial treatment is rest and cold packs. A neck collar may be placed to keep the muscles of the neck at rest. Antiinflammatory and muscle relaxing medication are often used to reduce the spasm and irritation. You should call the doctor, or go to the hospital, if you develop numbness or weakness in any extremity, problems with your bladder or bowel, or pain radiating down the arms. CONTUSION: Your injury has resulted in a contusion -- a crushing of the deep tissues. No injury to important structures was detected during the physician's exam. Contusions vary in the amount of pain they cause, and in the length of time required for healing. Typically, the area will become bruised, and will remain painful to touch for two or three weeks. However, most patients are back to working and playing within a few days. After the initial period of rest and cold-packs, your symptoms (together with the doctor's recommendations) will determine how rapidly you can get back to full activity. Usually this means "do what feels okay, but don't do things that hurt." If re-examination was recommended, it's important to follow up as instructed. Call the doctor or return any time if pain increases, if swelling becomes severe, if you develop numbness or weakness in an injured extremity, or if any other alarming symptoms occur. USE OF TYLENOL (ACETAMINOPHEN): Acetaminophen may be taken for pain relief or fever control. It's much safer than aspirin, offering a wider range of "safe" dosages. It is safe during . Some brand names are Tylenol, Panadol, Datril, Anacin 3, Tempra, and Liquiprin. Acetaminophen can be repeated every four hours. The following are maximum recommended dosages: WEIGHT Dose Drops Elixir Chewable( 80mg) (LBS.) drprs=droppers tsp=teaspoon >89 pounds or adults 650 mg to 900 mg Acetaminophen can be repeated every four hours. Maximum dose not to exceed 4000 mg a day. These maximum recommended dosages are slightly higher than the dosages written on the product container, but these dosages are very safe and below the toxic dosage for acetaminophen. You may continue to take all of your current medications just as before. FOLLOW-UP CARE: If you have been referred to a physician for follow-up care, call the physician s office for an appointment as you were instructed or within the next two days. If you experience worsening or a significant change in your symptoms, notify the physician immediately or return to the Emergency Department at any time for re-evaluation.
[2017-03-21 20:12] VITALS: BP 130/78
== END 2017-03-21 20:11 | disposition home or self-care (01) ==
LOC: ER 17:10
DX: S06.0X9A Concussion with loss of consciousness of unspecified duration, initial encounter (principal); R11.0 Nausea; W19.XXXA Unspecified fall, initial encounter; E78.00 Pure hypercholesterolemia, unspecified; I10 Essential (primary) hypertension; Z86.73 Personal history of transient ischemic attack (TIA), and cerebral infarction without residual deficits; Z90.710 Acquired absence of both cervix and uterus
CPT/HCPCS: 36415; 70450; 80053; 80307; 81001; 85025; 99284

== ENCOUNTER 2017-09-09 19:33 | Inpatient (IN) | payer OTHER, MEDICARE, MEDICAID ==
--- NOTE | 2017-09-09 20:28 | ER Document Report ---
ED Medical Screen (RME) - General Mode of Arrival: Ambulatory Information source: Patient TRAVEL OUTSIDE OF THE [place] IN LAST 30 DAYS: No <FRANCISCO SWIFT - Last Filed: 09/09/17 20:24> <FELI HARO - Last Filed: 09/09/17 21:31> - General Chief Complaint: Altered Mental Status Stated Complaint: DIZZINESS Time Seen by Provider: 09/09/17 20:21 Notes: 56 y.o female presents to the ED for "lost in space moment". Son states that it was about 5-15 minutes to return to normal. didnt know wheer she was, why she was there. He asked her things she should know off the bat about the pets and gave the names of older pets that she used to live with. Started aroudn when they wokes. past 3 days had pain and numbness to left arm. had stumblin on her feet for the past coupld days, same amount of time her arm atarted to act up. Hx of stroke 5 years ago. (FRANCISCO SWIFT) - Related Data Allergies/Adverse Reactions: codeine Adverse Reaction (Verified 09/09/17 19:35) Past Medical History - General Information source: Patient, Relative - Past Medical History Cardiac Medical History: Reports: Hx Hypercholesterolemia, Hx Hypertension Neurological Medical History: Reports: Hx Cerebrovascular Accident - 4 years ago , Hx Migraine Renal/ Medical History: Denies: Hx Peritoneal Dialysis Past Surgical History: Reports: Hx Abdominal Surgery, Hx Appendectomy, Hx Hysterectomy - Immunizations Hx Diphtheria, Pertussis, Tetanus Vaccination: Yes History of Influenza Vaccine for 02/2017 - 07/2017 Season: No <FRANCISCO SWIFT - Last Filed: 09/09/17 20:24> Review of Systems - Review of Systems Constitutional: No symptoms reported EENT: No symptoms reported Cardiovascular: No symptoms reported Respiratory: No symptoms reported Gastrointestinal: No symptoms reported Genitourinary: No symptoms reported Female Genitourinary: No symptoms reported Musculoskeletal: No symptoms reported Skin: No symptoms reported Hematologic/Lymphatic: No symptoms reported Neurological/Psychological: See HPI, Confusion - "lost in space moment", Weakness, Numbness -: Yes All other systems reviewed and negative <FRANCISCO SIWFT - Last Filed: 09/09/17 20:24> Physical Exam <FRANCISCO SWIFT - Last Filed: 09/09/17 20:24> <FELI HARO - Last Filed: 09/09/17 21:31> - Vital signs Vitals: Temp Pulse Resp BP Pulse Ox 98.7 F 79 16 131/78 H 97 09/09/17 19:50 09/09/17 19:50 09/09/17 19:50 09/09/17 19:50 09/09/17 19:50 - Notes Notes: Physical Exam: General: Alert, appears well. HEENT: Normocephalic. Atraumatic. PERRLA. Extraocular movements intact. Neck: Supple. Respiratory: No respiratory distress. Abdominal: Normal Inspection. No distension. Extremities: Moves all four extremities. Neurological: Normal cognition. AAOx4. Normal speech. LT sided facial droop. LT arm and leg weakness. Psychological: Normal affect. Normal Mood. Skin: Warm. Dry. Normal color. (FRANCISCO SWIFT) Course <FRANCISCO SWIFT - Last Filed: 09/09/17 20:24> - Laboratory Result Diagrams: 09/09/17 20:50 09/09/17 20:50 <FELI HARO - Last Filed: 09/09/17 21:31> - Re-evaluation Re-evalutation: 09/09/17 21:30 Out of timeframe for TPA, symptoms showed up 3 days ago, discussed with patient and family members why they were not eligible for TPA. (FELI HARO) - Vital Signs Vital signs: Temp Pulse Resp BP Pulse Ox 98.7 F 79 16 131/78 H 97 09/09/17 19:50 09/09/17 19:50 09/09/17 19:50 09/09/17 19:50 09/09/17 19:50 Scribe Documentation - Scribe Written by Bonilla:: Bonilla Lucia 09/09/172025 acting as scribe for :: David <FRANCISCO SWIFT - Last Filed: 09/09/17 20:24>
--- NOTE | 2017-09-09 20:54 | RADIOLOGY REPORT (SQ) ---
EXAM DESCRIPTION: CT HEAD WITHOUT COMPLETED DATE/TIME: 09/09/2017 8:38 pm REASON FOR STUDY: left sided weakness onset 3 days ago COMPARISON: 2017. TECHNIQUE: Axial images acquired through the brain without intravenous contrast. Images reviewed wi th bone, brain and subdural windows. Additional sagittal and coronal reconstructions were generated. Images stored on PACS. All CT scanners at this facility use dose modulation, iterative reconstruction, and/or weight based d osing when appropriate to reduce radiation dose to as low as reasonably achievable (ALARA). [facility]: Dose Right [facility]: CareDose [facility]: Dose Right [facility]: Teradose 4D [facility]: [employer] RADIATION DOSE: CT Rad equipment meets quality standard of care and radiation dose reduction techniq ues were employed. CTDIvol: 53.2 mGy. DLP: 1017 mGy-cm. mGy. LIMITATIONS: None. FINDINGS: VENTRICLES: Normal size and contour. CEREBRUM: No masses. No hemorrhage. No midline shift. No evidence for acute infarction. Normal gra y/white matter differentiation. No areas of low density in the white matter. CEREBELLUM: No masses. No hemorrhage. No alteration of density. No evidence for acute infarction. EXTRAAXIAL SPACES: No fluid collections. No masses. ORBITS AND GLOBE: No intra- or extraconal masses. Normal contour of globe without masses. CALVARIUM: No fracture. PARANASAL SINUSES: No fluid or mucosal thickening. SOFT TISSUES: No mass or hematoma. OTHER: Midline anterior inferior brain coils likely related to previous anterior communicating artery aneurysm treatment. IMPRESSION: No acute or suspicious intracranial abnormality. Stable exam. EVIDENCE OF ACUTE STROKE: NO. COMMENT: Quality ID # [id number]: Final reports with documentation of one or more dose reduction techniques (e.g., Automated exposure control, adjustment of the mA and/or kV according to patient size, use of iterative reconstruction technique) TECHNICAL DOCUMENTATION: JOB ID: [id number] [employer]- All Rights Reserved Reading location - IP/workstation name: [email or web address]
--- NOTE | 2017-09-09 20:55 | RADIOLOGY REPORT (SQ) ---
EXAM DESCRIPTION: CHEST SINGLE VIEW COMPLETED DATE/TIME: 09/09/2017 8:44 pm REASON FOR STUDY: left sided weakness onset 3 days ago COMPARISON: 2016. NUMBER OF VIEWS: One view. TECHNIQUE: Single frontal radiographic view of the chest acquired. LIMITATIONS: None. FINDINGS: LUNGS AND PLEURA: No opacities, masses or pneumothorax. No pleural effusion. MEDIASTINUM AND HILAR STRUCTURES: No masses. Contour normal. HEART AND VASCULAR STRUCTURES: Heart normal in size. Normal vasculature. BONES: No acute findings. HARDWARE: None in the chest. OTHER: No other significant finding. IMPRESSION: NO SIGNIFICANT RADIOGRAPHIC FINDING IN THE CHEST. TECHNICAL DOCUMENTATION: JOB ID: [id number] [employer]- All Rights Reserved Reading location - IP/workstation name: [email or web address]
--- NOTE | 2017-09-09 21:27 | ER Document Report ---
ED General - General Chief Complaint: Altered Mental Status Stated Complaint: DIZZINESS Time Seen by Provider: 09/09/17 20:21 Mode of Arrival: Ambulatory TRAVEL OUTSIDE OF THE [place] IN LAST 30 DAYS: No - HPI Notes: Patient is a 56-year-old female with a history of COPD, hypertension, hypercholesterolemia, brain aneurysm status post coil, CVA 5 years ago, residual left-sided weakness status post CVA, migraines who presents to the ED with complaining of having most recent altered mental status 4 hours ago and intermittently x2-3 days. Son states that her symptoms lasted for about 15 minutes and then resolved. Son states that he was in the kitchen with her when she became "spacey." He began asking her questions that she should know about current and previous pets as well as her current location which she could not answer any of them without confusion. She also states that she does have chronic left-sided weakness since her stroke 5 years ago. Son states that she also has an intermittent facial droop when she smiles. Patient states that she feels well currently without any recurrence of the "spaciness." She has been eating and drinking without any difficulties. She is urinating normally and having normal bowel movements. She denies any IV drug use. Denies any headache , fever, head injury, neck pain, URI, sore throat, chest pain, palpitations, syncope, cough, shortness of breath, wheeze, dyspnea, abdominal pain, nausea/ vomiting/diarrhea, urinary retention, dysuria, hematuria, loss of control of bowel or bladder, numbness/tingling, saddle anesthesia, extremity paralysis, or rash. - Related Data Allergies/Adverse Reactions: codeine Adverse Reaction (Verified 09/09/17 19:35) Past Medical History - General Information source: Patient, Relative - Social History Smoking Status: Former Smoker Family History: Reviewed & Not Pertinent Patient has suicidal ideation: No Patient has homicidal ideation: No - Past Medical History Cardiac Medical History: Reports: Hx Hypercholesterolemia, Hx Hypertension Neurological Medical History: Reports: Hx Cerebrovascular Accident - 4 years ago , Hx Migraine Renal/ Medical History: Denies: Hx Peritoneal Dialysis Past Surgical History: Reports: Hx Abdominal Surgery, Hx Appendectomy, Hx Hysterectomy - Immunizations Hx Diphtheria, Pertussis, Tetanus Vaccination: Yes Review of Systems - Review of Systems -: Yes All other systems reviewed and negative Physical Exam - Vital signs Vitals: Temp Pulse Resp BP Pulse Ox 98.7 F 79 16 131/78 H 97 09/09/17 19:50 09/09/17 19:50 09/09/17 19:50 09/09/17 19:50 09/09/17 19:50 - Notes Notes: PHYSICAL EXAMINATION: accompanied by female nurse GENERAL: Well-appearing, well-nourished and in no acute distress. A&Ox4. Answers questions appropriately. HEAD: Atraumatic, normocephalic. Non-tender. EYES: Pupils equal round and reactive to light, extraocular movements intact, sclera anicteric, conjunctiva are normal. No nystagmus. Vis ravi intact. ENT: Nares patent and without discharge. oropharynx clear without exudates. No tonsilar hypertrophy or erythema. Moist mucous membranes. NECK: Normal range of motion, supple without lymphadenopathy. No rigidity. No midline tenderness. LUNGS: Breath sounds clear to auscultation bilaterally and equal. No wheezes rales or rhonchi. HEART: Regular rate and rhythm without murmurs, rubs, gallops. ABDOMEN: Soft, nontender, nondistended abdomen. No guarding, no rebound. No masses appreciated. Normal bowel sounds present. No CVA tenderness bilaterally. Musculoskeletal: Ext's b/l: FROM to passive/active. Strength 4+/5 on the left vs 5/5 right. No bony tenderness of extremities. Back: FROM to passive/active. Strength 5+/5. No vertebral point tenderness, stepoffs, or deformities. No other bony tenderness or ecchymosis. Extremities: No cyanosis, clubbing, or edema b/l. Peripheral pulses 2+. Capillary refill less than 2 seconds. NEUROLOGICAL: NIH 3 with left facial droop with smiling and left limb ataxia left arm/leg--pt reports chronic issue, see history. GCS 15. Cranial nerves grossly intact. Normal speech, normal gait. Normal sensory, motor exams. Reflexes 2+ b/l. THA's negative. Pronator drift negative. PSYCH: Normal mood, normal affect. SKIN: Warm, Dry, normal turgor, no rashes or lesions noted. Course - Re-evaluation Re-evalutation: 09/09/17 21:26 NIH 3, pt reports chronic left sided weakness and intermittent facial droop since CVA [address] head negative. CXR negative. 09/09/17 22:36 Patient is an afebrile, well-hydrated, 56-year-old female who presents to the ED with a suspected TIA and results altered mental status. Vitals are acceptable. PE is otherwise unremarkable at this time for any gross focal neurological deficits aside from what was noted in the exam. CBC, CMP, coags, cardiac enzymes/EKG, and imaging as above were unremarkable for any acute pathology. I reviewed this case with Dr. Matta, hospitalist, who accepted patient for admit. - Vital Signs Vital signs: Temp Pulse Resp BP Pulse Ox 98.7 F 66 10 L 105/77 92 09/09/17 19:50 09/09/17 20:48 09/09/17 21:01 09/09/17 21:01 09/09/17 21:01 - Laboratory Result Diagrams: 09/09/17 20:50 09/09/17 20:50 Laboratory results interpreted by me: 09/09/17 20:50 Sodium 148.3 H Chloride 108 H Est GFR (Non-Af Amer) 53 L Discharge - Discharge Clinical Impression: TIA (transient ischemic attack) Qualifiers: Transient cerebral ischemia type: unspecified Qualified Code(s): G45.9 - Transient cerebral ischemic attack, unspecified Altered mental status, unspecified Qualifiers: Altered mental status type: unspecified Qualified Code(s): R41.82 - Altered mental status, unspecified Condition: Stable Disposition: ADMITTED OBSERVATION Admitting Provider: Hospitalist - Dr. matta Unit Admitted: Telemetry Referrals: ALFREDO BRADLEY PA-C [Primary Care Provider] - Follow up as needed
[2017-09-09 21:32] LABS: ABSOLUTE LYMPHOCYTES (AUTO) 1.8 10^3/uL (0.5-4.7); ABSOLUTE MONOCYTES (AUTO) 0.4 10^3/uL (0.1-1.4); BASOPHILS % (AUTO) 0.7 % (0-2); EOSINOPHILS % (AUTO) 0.7 % (0-6); HEMATOCRIT 41.8 % (36.0-47.0); HEMOGLOBIN 13.9 g/dL (12.0-15.5); LYMPHOCYTES % (AUTO) 27.9 % (13-45); MEAN CORPUSCULAR HEMOGLOBIN 29.6 pg (27.0-33.4); MEAN CORPUSCULAR HGB CONC 33.2 g/dL (32.0-36.0); MEAN CORPUSCULAR VOLUME 89 fl (80-97); MONOCYTES % (AUTO) 6.5 % (3-13); PLATELET COUNT 234 10^3/uL (150-450); RED CELL DISTRIBUTION WIDTH 13.6 % (11.5-14.0); SEGMENTED NEUTROPHILS % (AUTO) 64.2 % (42-78); TOTAL CELLS COUNTED % (AUTO) 100 %; WHITE BLOOD COUNT 6.3 10^3/uL (4.0-10.5)
[2017-09-09 21:35] LABS: INTERNATIONAL RATION (INR) 0.96; PROTHROMBIN TIME 13.3 SEC (11.4-15.4)
[2017-09-09 21:36] LABS: PARTIAL THROMBOPLASTIN TIME 30.8 SEC (23.5-35.8)
[2017-09-09 21:53] LABS: ALANINE AMINOTRANSFERASE 34 U/L (9-52); ALBUMIN 4.5 g/dL (3.5-5.0); ALKALINE PHOSPHATASE 69 U/L (38-126); ANION GAP 15 (5-19); ASPARTATE AMINO TRANSFERASE 25 U/L (14-36); BILIRUBIN,DIRECT 0.4 mg/dL (0.0-0.4); BILIRUBIN,TOTAL 0.6 mg/dL (0.2-1.3); BLOOD UREA NITROGEN 11 mg/dL (7-20); CALCIUM 9.6 mg/dL (8.4-10.2); CARBON DIOXIDE 25 mmol/L (22-30); CHLORIDE 108 mmol/L (98-107); CREATINE KINASE 39 U/L (30-135); GLUCOSE 85 mg/dL (75-110); POTASSIUM 4.5 mmol/L (3.6-5.0); SODIUM 148.3 mmol/L (137-145); TOTAL PROTEIN 7.4 g/dL (6.3-8.2)
[2017-09-09 22:05] LABS: CREATINE KINASE MB 0.38 ng/mL (<4.55)
[2017-09-09 22:06] LABS: TROPONIN I < 0.012 ng/mL
[2017-09-09] MEDS ORDERED: NORMAL SALINE 1000 ML 1,000 ML IV ONE (22:32)
[2017-09-09] MEDS ORDERED: ONDANSETRON 4 MG TAB.RAPDIS PO PRN (23:58)
[2017-09-09] MEDS ORDERED: ACETAMINOPHEN 325 MG TABLET PO PRN (23:58)
[2017-09-10] MEDS ORDERED: ASPIRIN 325 MG TABLET, ENT COATED PO ONE (00:06)
--- NOTE | 2017-09-10 03:37 | PDOC H&P ---
History of Present Illness Admission Date/PCP: 09/09/17 23:07 ALFREDO BRADLEY PA-C Patient complains of: Increased confusion and worsening left-sided weakness around 5 PM. History of Present Illness: HERIBERTO BARBER is a 56 year old left-handed female with history of CVA with left-sided residual weakness and cerebral aneurysm (post coiling 5 years ago), migraine headaches and essential hypertension was admitted with above-mentioned complaints. Some of the history was obtained from her son at bedside. The patient apparently slept all day and woke up around 5 PM. She noticed that she was dizzy when she woke up but denied any lightheadedness or vertigo. And half an hour later, while sitting in the kitchen drinking her coffee and conversing with her son who was preparing dinner, she reportedly stopped talking abruptly. She seemed to be confused and was unable to answer very simple questions like where she was and the name of her cat and dogs around her. Her son did not report that she had any slurred speech but that she rather seemed to have very slow mentation. According to the patient, she felt increased weakness in both her left arm and leg and increased numbness in her left arm. But there was no report of any headache, visual disturbances, dysarthria or dysphagia. There was also no report of any loss of consciousness, seizure activity or postictal state. The episode lasted about 15 minutes, and by the time she got to the ED her symptoms seemed to be improving. She said that she is compliant with her medications. She takes 75 mg Plavix daily in addition to 80 mg Lipitor daily. The patient denied any chest pain, shortness of breath, cough or fever but she was having some chills. She said that she drinks occasional martini and her last drink was last night. She usually uses a cane to walk long distances which she does seldomly. In the ED, her temperature was 98.7, heart rate 79, respiratory rate 16, blood pressure 131/78 with oxygen saturation of 97% on room air. Her WBC was 6.3 and her blood glucose was 85. Her initial troponin was negative. Her chest x-ray and head CAT scan were both unremarkable. She received 325 mg aspirin 1. She is currently complaining of feeling" foggy" but she is able to understand and follow simple commands. Past Medical History Medical History: Other - According to the patient and based on previous records Cardiac Medical History: Reports: Hyperlipidema, Hypertension Neurological Medical History: Reports: Migraine GI Medical History: Reports: Gastroesophageal Reflux Disease Psychiatric Medical History: Reports: Depression Hematology: Reports: Other - B12 deficiency. Past Surgical History Past Surgical History: Reports: Appendectomy, Hysterectomy, Other - Lasik left eye. Social History Smoking Status: Former Smoker Cigarettes Packs Per Day: 0 - She used to smoke 1-1/2 pack a day for 40 years. She quit about 5 years ago. Frequency of Alcohol Use: Occasional - She drinks martini occasionally. The last drink was last night. Hx Recreational Drug Use: No - Advance Directive Resuscitation Status: Full Code Family History Family History: Reviewed & Not Pertinent Parental Family History Reviewed: Yes - Mother: Hypertension, maternal grandfather: CHF. Children Family History Reviewed: No Sibling(s) Family History Reviewed.: Yes Medication/Allergy Home Medications: Oxycodone HCl/Acetaminophen [Percocet 5-325 mg Tablet] 1 - 2 tab PO Q4H PRN #15 tablet 07/12/16 Allergies/Adverse Reactions: codeine Adverse Reaction (Verified 09/09/17 19:35) Review of Systems ROS unobtainable: Other - Pertinent positives and negatives as detailed in the HPI. Physical Exam Vital Signs: Temp Pulse Resp BP Pulse Ox 98.7 F 66 10 L 105/77 92 09/09/17 19:50 09/09/17 20:48 09/09/17 21:01 09/09/17 21:01 09/09/17 21:01 General appearance: PRESENT: no acute distress, well-developed, well-nourished Head exam: PRESENT: atraumatic, normocephalic Eye exam: PRESENT: EOMI, PERRLA. ABSENT: nystagmus, scleral icterus Mouth exam: PRESENT: moist, neck supple Neck exam: PRESENT: full ROM. ABSENT: carotid bruit, JVD Respiratory exam: PRESENT: clear to auscultation abbe. ABSENT: rales, rhonchi, wheezes Cardiovascular exam: PRESENT: RRR, +S1, +S2 Pulses: PRESENT: normal dorsalis pedis pul GI/Abdominal exam: PRESENT: normal bowel sounds, soft. ABSENT: distended, rebound, tenderness Rectal exam: PRESENT: deferred Extremities exam: ABSENT: pedal edema Musculoskeletal exam: PRESENT: other - Able to move all 4 extremities. Neurological exam: PRESENT: alert, altered, awake, oriented to person, oriented to place, oriented to time - Except day of the month., oriented to situation, CN II-XII grossly intact - excpt CNVIII., motor sensory deficit - Motor 3+/5 left upper and lower extremity otherwise 4+/5. Decreased sensation left side of her face, arm and leg. Left facial droop when she smiles. Left pronator drift. No Babinski or clonus, gait was not assessed. Results Laboratory Results: CBC: WBC 6.3, hemoglobin 13.9, hematocrit 41.8, MCV 89, RDW 13.6, platelets 234. PT/INR 13.3/0.96. CMP: Sodium 148.3, potassium 4.5, chloride 108, bicarb 25, anion gap 15, BUN 11 , creatinine 1.08, glucose 85, calcium 9.6, liver enzymes within normal limits. Troponin 1 negative. EKG Comments: Twelve-lead EKG: Sinus rhythm, ventricular rate 60, axis +60, no acute changes. Similar when compared to previous twelve-lead EKG done on 11/12/2016. Impressions: Chest X-Ray 09/09/17 20:27 IMPRESSION: NO SIGNIFICANT RADIOGRAPHIC FINDING IN THE CHEST. Head CT 09/09/17 20:27 IMPRESSION: No acute or suspicious intracranial abnormality. Stable exam. EVIDENCE OF ACUTE STROKE: NO. Assessment & Plan - Diagnosis (1) TIA (transient ischemic attack) Qualifiers: Transient cerebral ischemia type: unspecified Qualified Code(s): G45.9 - Transient cerebral ischemic attack, unspecified Is this a current diagnosis for this admission?: Yes Plan: The patient is not a candidate for TPA since her symptoms seem to be improving. It was difficult to obtain an accurate NIHSS score (possibly 5) given history of CVA with left hemiparesis. Her head CAT scan was negative. Will obtain a stroke workup including an MRI/MRA head, bilateral carotid Dopplers, echocardiogram, lipid profile and HbA1c. Will continue Plavix and add aspirin 81 mg daily in addition to 80 mg of Lipitor daily. (2) Acute encephalopathy Is this a current diagnosis for this admission?: Yes Plan: possibly secondary to TIA since it was brief. There was no report of any seizure activity or postictal state. Will follow-up stroke workup and check TSH and UA. She is on B12 supplements. The only recent change in her medications is the addition of an antihistamine for allergy but she said that she did not take it today. (3) Essential hypertension Is this a current diagnosis for this admission?: Yes Plan: Will continue to monitor and resume her home BP medications as indicated. (4) Hyperlipidemia Is this a current diagnosis for this admission?: Yes Plan: We will continue Lipitor. - Time Time Spent: 50 to 70 Minutes
[2017-09-10 06:13] LABS: CHOLESTEROL 124.75 mg/dL (0-200); TRIGLYCERIDES 120 mg/dL (<150)
[2017-09-10 06:24] LABS: DIRECT LDL 55 mg/dL (<100)
[2017-09-10] MEDS: LANSOPRAZOLE 30 MG TAB.RAP.DR PO SCH (06:27)
[2017-09-10] MEDS: HEPARIN SOD (PORCINE) 5,000 UNIT/ML 1 ML SYRINGE SUBCUT SCH ×3 (06:27→21:10)
--- NOTE | 2017-09-10 09:43 | EKG REPORT ---
SEVERITY:- NORMAL ECG - SINUS RHYTHM : Confirmed by: Baylee Monsalve 10-Sep-2017 09:42:00
[2017-09-10 10:26] LABS: APPEARANCE,URINE SLIGHTLY-CLOUDY; BILIRUBIN,URINE NEGATIVE (NEGATIVE); COLOR,URINE YELLOW; GLUCOSE, URINE NEGATIVE (NEGATIVE); KETONES,URINE NEGATIVE (NEGATIVE); LEUKOCYTE ESTERASE,URINE MODERATE (NEGATIVE); NITRITE,URINE NEGATIVE (NEGATIVE); PROTEIN,URINE NEGATIVE (NEGATIVE); URINE SPECIFIC GRAVITY 1.021; UROBILINOGEN,URINE NEGATIVE mg/dL (<2.0)
[2017-09-10] MEDS: CLOPIDOGREL BISULFATE 75 MG TABLET PO SCH (10:40)
[2017-09-10] MEDS: ASPIRIN 81 MG TABLET, ENT COATED PO SCH (10:41)
[2017-09-10] MEDS ORDERED: BUTALB/ACETAMINOPHEN/CAFFEINE 1 TAB EACH PO PRN (13:29)
[2017-09-10] MEDS ORDERED: ALBUTEROL SULFATE HFA (90 MCG/PUFF) 200 PUFF/8.5 GM MDI IH PRN (13:29)
[2017-09-10] MEDS ORDERED: TOPIRAMATE 100 MG TABLET PO SCH (13:30)
[2017-09-10] MEDS ORDERED: CHOLECALCIFEROL (D3) 1,000 UNIT TABLET PO ONE (15:15)
[2017-09-10] MEDS ORDERED: LISINOPRIL 5 MG TABLET PO ONE (15:15)
[2017-09-10] MEDS ORDERED: CYANOCOBALAMIN (VITAMIN B-12) 1,000 MCG TABLET PO ONE (15:15)
[2017-09-10] MEDS ORDERED: SERTRALINE HCL 50 MG TABLET PO ONE (15:15)
[2017-09-10] MEDS ORDERED: CLOPIDOGREL BISULFATE 75 MG TABLET PO ONE (15:15)
[2017-09-10] MEDS ORDERED: LANSOPRAZOLE 30 MG TAB.RAP.DR PO ONE (15:15)
[2017-09-10] MEDS ORDERED: FOLIC ACID 1 MG TABLET PO ONE (15:15)
--- NOTE | 2017-09-10 16:19 | PDOC PROGRESS REPORT ---
Subjective Progress Note for:: 09/10/17 Subjective:: HERIBERTO BARBER is a 56 year old female with a history of CVA (L sided residual weakness), cerebral aneurysm s/p coiling, migraines, and HTN. She presented to the emergency department for altered mental status, was admitted to [facility] for suspected TIA. Patient was seen this morning on rounds, she is resting comfortably in bed on room air. She has no complaints this morning, denies headache, blurred vision, neck pain or paresthesia. She endorses weakness to the left side of her body, however she states this is a residual deficit stemming from her previous CVA. Upon assessment, the patient does have notable deficits in her left upper and lower extremity. Strength 4/5 in LUE and 3/5 in LLE. Patient also endorses decreased sensation in her left upper and left lower extremity. Denies paresthesia. No problems with fine motor control or hand-eye coordination, no evidence of dysmetria. Currently awaiting ECHO and carotid doppler studies. MRI/MRA on hold until information can be gathered regarding the materials development engineer of the aneurysm coil. Per surgery technician, the procedure cannot be completed until this information Reason For Visit: TIA R/O CVA Physical Exam Vital Signs: Temp Pulse Resp BP Pulse Ox 98.3 F 63 18 110/47 L 98 09/10/17 12:15 09/10/17 14:00 09/10/17 12:15 09/10/17 12:15 09/10/17 12:15 General appearance: PRESENT: no acute distress, well-developed, well-nourished Head exam: PRESENT: atraumatic Eye exam: PRESENT: conjunctiva pink, PERRLA. ABSENT: nystagmus Mouth exam: PRESENT: moist Neck exam: PRESENT: full ROM Respiratory exam: PRESENT: clear to auscultation abbe, symmetrical, unlabored Cardiovascular exam: PRESENT: +S1, +S2 Pulses: PRESENT: normal radial pulses, normal dorsalis pedis pul GI/Abdominal exam: PRESENT: normal bowel sounds, soft. ABSENT: tenderness Rectal exam: PRESENT: deferred Extremities exam: PRESENT: full ROM Musculoskeletal exam: PRESENT: ambulatory, full ROM Neurological exam: PRESENT: alert, awake, oriented to person, oriented to place , oriented to time, oriented to situation Psychiatric exam: PRESENT: appropriate affect Skin exam: PRESENT: dry, intact, normal color Results Impressions: Chest X-Ray 09/09/17 20:27 IMPRESSION: NO SIGNIFICANT RADIOGRAPHIC FINDING IN THE CHEST. Head CT 09/09/17 20:27 IMPRESSION: No acute or suspicious intracranial abnormality. Stable exam. EVIDENCE OF ACUTE STROKE: NO. Status: Imported from PACS Assessment & Plan - Diagnosis (1) TIA (transient ischemic attack) Qualifiers: Transient cerebral ischemia type: unspecified Qualified Code(s): G45.9 - Transient cerebral ischemic attack, unspecified Is this a current diagnosis for this admission?: Yes Plan: Patient presented with an acute onset of altered mental status, she was having difficulty remembering the names of her pets and generally slow to respond Upon arrival to the emergency department her symptoms have resolved. Head CT negative. Lipid profile within normal limits Bilateral carotid Dopplers pending Echocardiogram pending Continue Plavix and aspirin 80 mg daily Continue home dose Lipitor Continue home dose lisinopril MRI/MRA currently on hold until more information can be obtained regarding the materials development engineer of the aneurysm coil. (2) Essential hypertension Is this a current diagnosis for this admission?: Yes Plan: Patient endorses a history of hypertension Resumed all home blood pressure medication Patient has remained relatively NORMOtensive since arrival (3) Hyperlipidemia Is this a current diagnosis for this admission?: Yes Plan: Patient endorses history of hyperlipidemia. Continue home dose Lipitor - Time Time Spent with patient: 15-24 minutes Medications reviewed and adjusted accordingly: Yes Disposition: unclear at this time - Inpatient Certification Based on my medical assessment, after consideration of the patient's comorbidities, presenting symptoms, or acuity I expect that the services needed warrant INPATIENT care.: Yes I certify that my determination is in accordance with my understanding of Medicare's requirements for reasonable and necessary INPATIENT services [42 CFR 412.3e].: Yes Medical Necessity: Risk of Complication if Not Cared For in Hospital - Plan Summary Plan Summary: Disposition is unclear at this time. If the patient's TIA workup demonstrates anything abnormal, she may require transfer to a tertiary facility.
[2017-09-10] MEDS: TOPIRAMATE 100 MG TABLET PO SCH (17:47)
[2017-09-10] MEDS: MAGNESIUM OXIDE 400 MG TABLET PO SCH (17:47)
[2017-09-10] MEDS: NORTRIPTYLINE HCL 25 MG CAPSULE PO SCH (21:05)
[2017-09-10] MEDS: ATORVASTATIN CALCIUM 80 MG TABLET PO SCH (21:11)
[2017-09-10] MEDS ORDERED: ATORVASTATIN CALCIUM 80 MG TABLET PO SCH (22:00)
[2017-09-10] MEDS ORDERED: ATORVASTATIN CALCIUM 40 MG TABLET PO SCH (22:00)
[2017-09-11] MEDS ORDERED: LANSOPRAZOLE 30 MG TAB.RAP.DR PO SCH (06:00)
[2017-09-11] MEDS: LANSOPRAZOLE 30 MG TAB.RAP.DR PO SCH (06:16)
[2017-09-11] MEDS: TOPIRAMATE 100 MG TABLET PO SCH ×2 (06:16→18:58)
[2017-09-11] MEDS: HEPARIN SOD (PORCINE) 5,000 UNIT/ML 1 ML SYRINGE SUBCUT SCH ×3 (06:16→22:31)
[2017-09-11 07:14] LABS: HEMATOCRIT 36.9 % (36.0-47.0); HEMOGLOBIN 12.5 g/dL (12.0-15.5); MEAN CORPUSCULAR HEMOGLOBIN 29.8 pg (27.0-33.4); MEAN CORPUSCULAR HGB CONC 33.7 g/dL (32.0-36.0); MEAN CORPUSCULAR VOLUME 88 fl (80-97); PLATELET COUNT 209 10^3/uL (150-450); RED BLOOD COUNT 4.18 10^6/uL (3.72-5.28); RED CELL DISTRIBUTION WIDTH 13.8 % (11.5-14.0); WHITE BLOOD COUNT 5.5 10^3/uL (4.0-10.5)
[2017-09-11 07:43] LABS: ANION GAP 12 (5-19); BLOOD UREA NITROGEN 15 mg/dL (7-20); CALCIUM 8.9 mg/dL (8.4-10.2); CARBON DIOXIDE 23 mmol/L (22-30); CHLORIDE 114 mmol/L (98-107); GLUCOSE 94 mg/dL (75-110); POTASSIUM 4.2 mmol/L (3.6-5.0); SODIUM 148.6 mmol/L (137-145)
[2017-09-11] MEDS: SERTRALINE HCL 50 MG TABLET PO SCH (09:56)
[2017-09-11] MEDS: CHOLECALCIFEROL (D3) 1,000 UNIT TABLET PO SCH (09:56)
[2017-09-11] MEDS: FOLIC ACID 1 MG TABLET PO SCH (09:57)
[2017-09-11] MEDS: LISINOPRIL 5 MG TABLET PO SCH (09:57)
[2017-09-11] MEDS: CYANOCOBALAMIN (VITAMIN B-12) 1,000 MCG TABLET PO SCH (09:57)
[2017-09-11] MEDS: CLOPIDOGREL BISULFATE 75 MG TABLET PO SCH (09:57)
[2017-09-11] MEDS: MAGNESIUM OXIDE 400 MG TABLET PO SCH ×2 (09:57→18:58)
[2017-09-11] MEDS: ASPIRIN 81 MG TABLET, ENT COATED PO SCH (09:57)
[2017-09-11] MEDS ORDERED: CLOPIDOGREL BISULFATE 75 MG TABLET PO SCH (10:00)
--- NOTE | 2017-09-11 13:09 | RADIOLOGY REPORT (SQ) ---
EXAM DESCRIPTION: MRI HEAD COMBO COMPLETED DATE/TIME: 09/11/2017 12:55 pm REASON FOR STUDY: altered mental status COMPARISON: None. TECHNIQUE: Multiplanar imaging includes noncontrasted T1, T2, FLAIR, diffusion with ADC map and post gadolinium contrast T1 sequences. Images stored on PACS. CONTRAST TYPE AND DOSE: 15 mL Multihance. RENAL FUNCTION: GFR > 60. LIMITATIONS: None. FINDINGS: ANATOMY: No anomalies. Normal vascular flow voids. Pituitary fossa normal. CSF SPACES: Normal in size and contour. No hemorrhage. CEREBRUM: Sulci and gyri normal in size and contour. Normal white matter signal on FLAIR imaging. No evidence of hemorrhage, mass, or extraaxial fluid collection. No abnormal enhancement post contrast. POSTERIOR FOSSA: No signal alteration. No hemorrhage. No edema, masses, or mass effect. Internal erin tory canals, cerebellopontine angles, mastoids normal. No enhancing lesions. No abnormal enhancement post contrast. DIFFUSION IMAGING: Negative for acute or subacute infarction. ORBITS: No masses. Globes normal. PARANASAL SINUSES: No fluid levels. Mucosa normal. OTHER: No other significant finding. IMPRESSION: Normal brain. EVIDENCE OF ACUTE STROKE: NO. TECHNICAL DOCUMENTATION: JOB ID: [id number] [employer]- All Rights Reserved Reading location - IP/workstation name: [facility]
--- NOTE | 2017-09-11 13:13 | RADIOLOGY REPORT (SQ) ---
EXAM DESCRIPTION: MRA HEAD WITHOUT COMPLETED DATE/TIME: 09/11/2017 12:55 pm REASON FOR STUDY: altered mental status COMPARISON: None. TECHNIQUE: Axial 3-D nthf-yt-dqomen acquisition imaging performed through the brain in the area of t he [place] of [place]. Images reformatted using 3-D MIPS. LIMITATIONS: None. FINDINGS: SOURCE IMAGES: No unexpected findings on source images. No large masses. 3-D MIP: No aneurysm. No occlusions. No significant stenosis. OTHER: No other significant finding. IMPRESSION: NORMAL MRA OF THE [place] OF [place]. TECHNICAL DOCUMENTATION: JOB ID: [id number] [employer]- All Rights Reserved Reading location - IP/workstation name: [email or web address]
--- NOTE | 2017-09-11 14:01 | RADIOLOGY REPORT (SQ) ---
EXAM DESCRIPTION: CAROTID DOPPLER COMPLETED DATE/TIME: 09/11/2017 1:36 pm REASON FOR STUDY: TIA/CVA COMPARISON: None. TECHNIQUE: Grayscale ultrasound, Doppler velocity and spectra, and color Doppler images acquired of the extra-cranial carotid and vertebral arteries. Images stored on PACS. LIMITATIONS: None. FINDINGS: RIGHT CAROTID CCA Velocities: Within normal limits. ICA Velocities Peak systolic 1.06 m/s. End diastolic 0.41 m/s. Proximal ICA/CCA peak systolic ratio 1.9. Spectra normal. No significant plaque. LEFT CAROTID CCA Velocities: Within normal limits. ICA Velocities Peak systolic 1.43 m/s. End diastolic 0.61 m/s. Proximal ICA/CCA peak systolic ratio 2.0. Spectra normal. No significant plaque. VERTEBRAL ARTERIES: Antegrade flow. Normal waveforms. SUBCLAVIAN ARTERIES: No finding. OTHER: No other significant finding. IMPRESSION: Left: 50- 69% stenosis ICA, closer to 50%. Right: No significant stenosis. COMMENT: Quality ID #[id number]: Velocity criteria are extrapolated from the diameter data as defined by t he Society of Radiologists in Ultrasound Consensus Conference. Radiology 2003: 229; 340-346. TECHNICAL DOCUMENTATION: JOB ID: [id number] [employer]- All Rights Reserved Reading location - IP/workstation name: [email or web address]
--- NOTE | 2017-09-11 20:28 | XCELERA REPORT ---
[address] [address] Transthoracic Echocardiogram Report Name: HERIBERTO BARBER Age: 56 yrs Gender: Female : 1960 Patient Status: Inpatient Patient Location: [address] [place] [address] Study Date: 09/11/2017 10:17 AM Height: 63 in Weight: 187 lb BSA: 1.9 m2 Procedure: A complete two-dimensional transthoracic echocardiogram was performed (2D, M-mode, spectral and color flow Doppler). The study was technically adequate with some images being suboptimal in quality. Reason For Study: TIA/CVA Ordering Physician: LIYAH EMERY Performed By: Janie Clayton Interpretation Summary The left ventricular ejection fraction is normal. There is borderline concentric left ventricular hypertrophy. The left ventricle is grossly normal size. Doppler measurements suggest normal left ventricular diastolic function Wall motion cannot be accurately commented on, but no definite regional wall motion abnormalities noted. The right ventricular systolic function is normal. Borderline left atrial enlargement. The right atrium is normal in size There is a trace amount of mitral regurgitation There is no mitral valve stenosis. No aortic regurgitation is present. There is no aortic valve stenosis There is no tricuspid stenosis. No tricuspid regurgitation. The aortic root is not well visualized but is probably normal size. The inferior vena cava appeared normal and decreased > 50% with respiration (RAP 5-10 mmHg) There is no pericardial effusion. MMode/2D Measurements & Calculations RVDd: 3.3 cm LVIDd: 4.4 cm FS: 28.8 % Ao root diam: 2.3 cm IVSd: 0.85 cm LVIDs: 3.1 cm EDV(Teich): 87.2 ml LVPWd: 0.87 cm ESV(Teich): 38.7 ml Ao root area: 4.1 cm2 EF(Teich): 55.6 % LA dimension: 3.7 cm Doppler Measurements & Calculations MV E max ramses: MV P1/2t max ramses: Ao V2 max: LV V1 max P.1 cm/sec 107.1 cm/sec 192.0 cm/sec 7.4 mmHg MV A max ramses: MV P1/2t: 50.4 msec Ao max PG: LV V1 max: 72.6 cm/sec 14.7 mmHg 135.7 cm/sec MV E/A: 1.5 MVA(P1/2t): 4.4 cm2 MV dec slope: 622.1 cm/sec2 MV dec time: 0.17 sec PA V2 max: 78.0 cm/sec PA max P.4 mmHg Left Ventricle The left ventricle is grossly normal size. There is borderline concentric left ventricular hypertrophy. The left ventricular ejection fraction is normal. Doppler measurements suggest normal left ventricular diastolic function. Wall motion cannot be accurately commented on, but no definite regional wall motion abnormalities noted. Right Ventricle The right ventricle is grossly normal size. There is normal right ventricular wall thickness. The right ventricular systolic function is normal. Atria The right atrium is normal in size. Borderline left atrial enlargement. Interarterial septum not well visualized and not well dopplered. Cannot comment on ASD/PFO presence. Mitral Valve The mitral valve is grossly normal. There is no mitral valve stenosis. There is a trace amount of mitral regurgitation. Aortic Valve The aortic valve is not well visualized secondary to technical limitations. There is no aortic valve stenosis. No aortic regurgitation is present. Tricuspid Valve The tricuspid valve is not well visualized secondary to technical limitations. There is no tricuspid stenosis. No tricuspid regurgitation. Pulmonic Valve The pulmonic valve is not well visualized. Great Vessels The aortic root is not well visualized but is probably normal size. The inferior vena cava appeared normal and decreased > 50% with respiration (RAP 5-10 mmHg). Effusions There is no pericardial effusion. Incidental Findings No definite cardiac source of CVA/TIA noted on this particular trans- thoracic study. Consider SUSANNA if clinically indicated. May consider mobile cardiac telemetry monitoring (MCT) for ruling out transient AFIB. : LIYAH EMERY > Baylee Monsalve
--- NOTE | 2017-09-11 20:39 | RADIOLOGY REPORT (SQ) ---
EXAM DESCRIPTION: MRI CERVICAL SPINE WITHOUT COMPLETED DATE/TIME: 09/11/2017 8:16 pm REASON FOR STUDY: r/o spinal stenosis. new L sided parasthesia COMPARISON: None. TECHNIQUE: Sagittal and Axial imaging includes T1, T2, STIR and gradient echo sequences. LIMITATIONS: None. FINDINGS: ALIGNMENT: Normal. VERTEBRAE: Intact. BONE MARROW: Normal. No marrow replacement or reactive changes. DISCS: Loss of height and T2 signal C5-6. HARDWARE: None in the spine. CORD AND BASE OF BRAIN: Normal in size and signal intensity. SOFT TISSUES: No soft tissue masses. C1-C2: No significant spinal stenosis. C2-C3: No significant spinal stenosis or exit foraminal stenosis. C3-C4: Disc osteophyte complex with mild narrowing of the exit foramina. C4-C5: Disc osteophyte complex with mild flattening the anterior thecal sac and narrowing of the exit foramina left greater than right. C5-C6: Prominent disc osteophyte complex with flattening of the anterior thecal sac. Moderate narrow ing of both exit foramina. C6-C7: No significant spinal stenosis or exit foraminal stenosis. C7-T1: No significant spinal stenosis or exit foraminal stenosis. UPPER THORACIC: Incompletely imaged. No significant spinal stenosis or exit foraminal stenosis. OTHER: No other significant finding. IMPRESSION: Multilevel spondylosis. There is moderate spinal stenosis and bilateral exit foraminal stenosis is C5-6. Less prominent changes at C3-4 and C4-5. TECHNICAL DOCUMENTATION: JOB ID: [id number] [email or web address]- All Rights Reserved Reading location - IP/workstation name: [email or web address]
[2017-09-11] MEDS: ATORVASTATIN CALCIUM 80 MG TABLET PO SCH (22:28)
[2017-09-11] MEDS: LEVETIRACETAM 500 MG TABLET PO SCH (22:28)
[2017-09-11] MEDS: NORTRIPTYLINE HCL 25 MG CAPSULE PO SCH (22:31)
[2017-09-12] MEDS: LANSOPRAZOLE 30 MG TAB.RAP.DR PO SCH (05:22)
[2017-09-12] MEDS: TOPIRAMATE 100 MG TABLET PO SCH ×2 (05:22→18:07)
[2017-09-12] MEDS: HEPARIN SOD (PORCINE) 5,000 UNIT/ML 1 ML SYRINGE SUBCUT SCH ×3 (05:23→21:39)
[2017-09-12 06:12] LABS: ABSOLUTE EOSINOPHILS # (AUTO) 0.1 10^3/uL (0.0-0.6); ABSOLUTE LYMPHOCYTES (AUTO) 2.2 10^3/uL (0.5-4.7); ABSOLUTE MONOCYTES (AUTO) 0.4 10^3/uL (0.1-1.4); ABSOLUTE NEUT (AUTO) 2.6 10^3/uL (1.7-8.2); BASOPHILS % (AUTO) 0.5 % (0-2); HEMATOCRIT 36.5 % (36.0-47.0); HEMOGLOBIN 12.4 g/dL (12.0-15.5); LYMPHOCYTES % (AUTO) 41.7 % (13-45); MEAN CORPUSCULAR HEMOGLOBIN 30.1 pg (27.0-33.4); MEAN CORPUSCULAR HGB CONC 34.1 g/dL (32.0-36.0); MEAN CORPUSCULAR VOLUME 88 fl (80-97); MONOCYTES % (AUTO) 6.7 % (3-13); PLATELET COUNT 203 10^3/uL (150-450); RED BLOOD COUNT 4.13 10^6/uL (3.72-5.28); RED CELL DISTRIBUTION WIDTH 13.9 % (11.5-14.0); SEGMENTED NEUTROPHILS % (AUTO) 49.1 % (42-78); TOTAL CELLS COUNTED % (AUTO) 100 %; WHITE BLOOD COUNT 5.3 10^3/uL (4.0-10.5)
[2017-09-12 06:34] LABS: ANION GAP 11 (5-19); BLOOD UREA NITROGEN 14 mg/dL (7-20); CALCIUM 9.3 mg/dL (8.4-10.2); CARBON DIOXIDE 24 mmol/L (22-30); CHLORIDE 113 mmol/L (98-107); GLUCOSE 93 mg/dL (75-110); PHOSPHORUS 3.7 mg/dL (2.5-4.5); POTASSIUM 3.9 mmol/L (3.6-5.0); SODIUM 147.7 mmol/L (137-145)
--- NOTE | 2017-09-12 06:42 | PDOC PROGRESS REPORT ---
Subjective Progress Note for:: 09/11/17 Subjective:: HERIBERTO BARBER is a 56 year old female with a history of CVA (residual LUE and LLE weakness), cerebral aneurysm s/p coiling, migraines, and HTN. She presented to the emergency department for altered mental status, was admitted to [facility] for suspected TIA. Patient was seen this morning on rounds, she is resting comfortably in bed on room air. She has no complaints this morning, denies headache, blurred vision, or neck pain. She endorses increasing weakness and parasthesia to the left upper extremity. Upon assessment, the patient does have notable deficits in her left upper and lower extremity. Strength 4/5 in LUE and 3/5 in LLE. +Pronator drift in LUE. Patient also endorses decreased sensation in her LUE and endorses paresthesia. No problems with fine motor control or hand-eye coordination. ECHO completed, results pending. MRI/MRA completed, results benign. Carotid doppler shows 50-69% stenosis of L ICA. Consulted [facility] for recommendations, see below. Reason For Visit: TIA R/O CVA Physical Exam Vital Signs: Temp Pulse Resp BP Pulse Ox 98.7 F 64 16 105/59 L 98 09/11/17 23:47 09/12/17 02:00 09/11/17 23:47 09/11/17 23:47 09/11/17 23:47 Intake & Output 09/10/17 09/11/17 09/12/17 06:59 06:59 06:59 Intake Total 1031 1281 Balance 1031 1281 Weight 90.6 kg General appearance: PRESENT: no acute distress Eye exam: PRESENT: conjunctiva pink, PERRLA. ABSENT: nystagmus Mouth exam: PRESENT: moist Neck exam: PRESENT: full ROM Respiratory exam: PRESENT: clear to auscultation abbe, symmetrical, unlabored Cardiovascular exam: PRESENT: RRR, +S1, +S2 Pulses: PRESENT: normal radial pulses, normal dorsalis pedis pul GI/Abdominal exam: PRESENT: normal bowel sounds, soft. ABSENT: tenderness Rectal exam: PRESENT: deferred Extremities exam: ABSENT: full ROM - LUE 4/5 LLE 3/5. +PRONATOR DRIFT TO LUE. Musculoskeletal exam: PRESENT: ambulatory. ABSENT: full ROM - LUE 4/5 LLE 3/5. +PRONATOR DRIFT TO LUE. Neurological exam: PRESENT: alert, awake, oriented to person, oriented to place , oriented to time, oriented to situation, motor sensory deficit - Parasthesia to LUE, decreased sensation to LUE and LLE Psychiatric exam: PRESENT: appropriate affect Skin exam: PRESENT: dry, intact, normal color Results Laboratory Results: 09/12/17 05:35 09/11/17 09/11/17 09/12/17 06:15 06:15 05:35 WBC 5.5 5.3 RBC 4.18 4.13 Hgb 12.5 12.4 Hct 36.9 36.5 MCV 88 88 MCH 29.8 30.1 MCHC 33.7 34.1 RDW 13.8 13.9 Plt Count 209 203 Seg Neutrophils % 49.1 Lymphocytes % 41.7 Monocytes % 6.7 Eosinophils % 2.0 Basophils % 0.5 Absolute Neutrophils 2.6 Absolute Lymphocytes 2.2 Absolute Monocytes 0.4 Absolute Eosinophils 0.1 Absolute Basophils 0.0 Sodium 148.6 H Potassium 4.2 Chloride 114 H Carbon Dioxide 23 Anion Gap 12 BUN 15 Creatinine 0.98 Est GFR ( Amer) > 60 Est GFR (Non-Af Amer) 59 L Glucose 94 Calcium 8.9 Phosphorus 4.0 Magnesium 2.3 Impressions: Chest X-Ray 09/09/17 20:27 IMPRESSION: NO SIGNIFICANT RADIOGRAPHIC FINDING IN THE CHEST. Head CT 09/09/17 20:27 IMPRESSION: No acute or suspicious intracranial abnormality. Stable exam. EVIDENCE OF ACUTE STROKE: NO. Brain MRI with MRA 09/11/17 00:00 IMPRESSION: NORMAL MRA OF THE [place]. Carotid Doppler Study 09/11/17 00:00 IMPRESSION: Left: 50- 69% stenosis ICA, closer to 50%. Right: No significant stenosis. Cervical Spine MRI 09/11/17 00:00 IMPRESSION: Multilevel spondylosis. There is moderate spinal stenosis and bilateral exit foraminal stenosis is C5-6. Less prominent changes at C3-4 and C4-5. Head MRI 09/11/17 12:12 IMPRESSION: Normal brain. EVIDENCE OF ACUTE STROKE: NO. Status: Imported from PACS Assessment & Plan - Diagnosis (1) TIA (transient ischemic attack) Qualifiers: Transient cerebral ischemia type: unspecified Qualified Code(s): G45.9 - Transient cerebral ischemic attack, unspecified Is this a current diagnosis for this admission?: Yes Plan: Patient presented with an acute onset of altered mental status, she appeared to have 'spaced out' then was having difficulty remembering the names of her pets and generally slow to respond Upon arrival to the emergency department her symptoms have resolved. Head CT negative. Lipid profile within normal limits MRI MRA brain negative Bilateral carotid Dopplers shows 50-69% stenosis of L ICA. R ICA no stenosis. Echocardiogram pending Continue Plavix and aspirin 80 mg daily Continue home dose Lipitor Continue home dose lisinopril Consulted [facility]. They state that the increasing weakness on the ipsilateral side of the carotid artery stenosis is not likely stroke symptoms. They recommend cspine MRI to r/o spinal stenosis. They also state that her TIA symptoms could be the result of a subclinical seizure, which is common in patients with a history of a CVA. In fact, it is one of the most common causes of new onset seizures in the older population. Neurologist recommended starting the patient on low dose Keppra 500mg BID and have her f/u with outpatient neurology. As far as the carotid stenosis, this is also something that can be f/ u as an outpatient. (2) Essential hypertension Is this a current diagnosis for this admission?: Yes Plan: Patient endorses a history of hypertension Resumed all home blood pressure medication Patient has remained relatively NORMOtensive since arrival (3) Hyperlipidemia Is this a current diagnosis for this admission?: Yes Plan: Patient endorses history of hyperlipidemia. Continue home dose Lipitor - Time Medications reviewed and adjusted accordingly: Yes Anticipated discharge: Home Within: within 72 hours - Inpatient Certification Based on my medical assessment, after consideration of the patient's comorbidities, presenting symptoms, or acuity I expect that the services needed warrant INPATIENT care.: Yes I certify that my determination is in accordance with my understanding of Medicare's requirements for reasonable and necessary INPATIENT services [42 CFR 412.3e].: Yes Medical Necessity: Risk of Complication if Not Cared For in Hospital - Plan Summary Plan Summary: Ultimately, the plan is to discharge the patient home to her outpatient neurologist
[2017-09-12] MEDS: CLOPIDOGREL BISULFATE 75 MG TABLET PO SCH (10:18)
[2017-09-12] MEDS: ASPIRIN 81 MG TABLET, ENT COATED PO SCH (10:18)
[2017-09-12] MEDS: CHOLECALCIFEROL (D3) 1,000 UNIT TABLET PO SCH (10:19)
[2017-09-12] MEDS: SERTRALINE HCL 50 MG TABLET PO SCH (10:19)
[2017-09-12] MEDS: LISINOPRIL 5 MG TABLET PO SCH (10:19)
[2017-09-12] MEDS: LEVETIRACETAM 500 MG TABLET PO SCH ×2 (10:19→21:46)
[2017-09-12] MEDS: CYANOCOBALAMIN (VITAMIN B-12) 1,000 MCG TABLET PO SCH (10:20)
[2017-09-12] MEDS: FOLIC ACID 1 MG TABLET PO SCH (10:20)
[2017-09-12] MEDS: MAGNESIUM OXIDE 400 MG TABLET PO SCH ×2 (10:20→18:07)
--- NOTE | 2017-09-12 14:55 | RADIOLOGY REPORT (SQ) ---
EXAM DESCRIPTION: MRI LUMBAR SPINE WITHOUT COMPLETED DATE/TIME: 09/12/2017 2:39 pm REASON FOR STUDY: LLE weakness COMPARISON: MRI BRAIN 09/11/2017 MRI CERVICAL SPINE 09/11/2017 CT BRAIN 09/09/2017 TECHNIQUE: Sagittal and Axial imaging includes T1, T2, STIR and gradient echo sequences. Coronal T2/ HASTE imaging. LIMITATIONS: None. FINDINGS: VISUALIZED UPPER ABDOMEN: Limited evaluation. No acute or suspicious findings suggested. SEGMENTATION: No transitional anatomy. The lowest well-developed disc space is labeled L5-S1. ALIGNMENT: Anatomic. VERTEBRAE: Intact. BONE MARROW: Benign hemangioma in the T12 vertebral body. Degenerative mixed sclerotic and fatty end plate changes at L4-5 DISC SIGNAL: Diffuse decreased T2 weighted intervertebral disc signal disc space loss of height at L3 -4, L4-5, and L5-S1 POSTERIOR ELEMENTS: Generally intact. No pars defect evident. HARDWARE: None in the spine. CORD AND CONUS: Normal in size and signal intensity. Conus at the L1-2 level. SOFT TISSUES: No aortic aneurysm seen. No bulky retroperitoneal adenopathy or mass. No paraspinal mas s or fluid. T11-12: At the upper edge of the field of view. Unremarkable. T12-L1: Unremarkable L1-L2: Unremarkable L2-L3: Minimal posterior disc bulging, mild bilateral facet hypertrophy. No central or foraminal enc roachment L3-L4: Mild diffuse posterior disc bulging. Moderate bilateral facet and ligament hypertrophy. Mild bilateral inferior foraminal narrowing without exiting L3 nerve root impingement. No central stenos is. L4-L5: Broad diffuse posterior disc bulge and bony spurring, moderate bilateral facet and ligament hy pertrophy cause mild central canal stenosis with flattening of the thecal sac into a triangular shape . This is best shown on axial T2 image 25. Mild bilateral inferior foraminal narrowing is present l eft greater than right. No definite exiting L4 nerve root impingement. L5-S1: Minimal posterior disc bulging, mild bilateral facet hypertrophy. No significant central or f oraminal encroachment. SACRUM: Visualized upper sacrum intact. OTHER: No other significant findings. IMPRESSION: Degenerative changes most pronounced at L4-5 TECHNICAL DOCUMENTATION: JOB ID: [id number]- All Rights Reserved Reading location - IP/workstation name: [facility]
--- NOTE | 2017-09-12 17:14 | PDOC PROGRESS REPORT ---
Subjective Progress Note for:: 09/12/17 Subjective:: The patient is a 56-year-old female with a past medical history of CVA ( residual left upper extremity and left lower extremity weakness), cerebral aneurysm status post coiling, migraines, and hypertension who was admitted on for TIA/CVA following a complaint of increased weakness and paresthesias to the left upper extremity with worsened expressive aphasia. The patient is seen on morning rounds, she is found resting in bed comfortably on room air. She states that she feels that her left upper and lower extremity weakness and paresthesias are intermittent but approaching her baseline level. She reports difficulty with word finding today; she states that typically she is able to do crossword puzzles without much difficulty but today she had trouble with an easy puzzle. She denies headache, dizziness, chest pain, palpitations, blurred vision, dyspnea, orthopnea, nausea vomiting and diarrhea. She is frustrated by the intermittent nature of her extremity weakness and her inability to identify the cause of her symptoms. Reason For Visit: TIA R/O CVA Physical Exam Vital Signs: Temp Pulse Resp BP Pulse Ox 97.6 F 78 18 109/48 L 100 09/12/17 11:29 09/12/17 14:00 09/12/17 11:29 09/12/17 11:29 09/12/17 11:29 Intake & Output 09/11/17 09/12/17 09/13/17 06:59 06:59 06:59 Intake Total 1031 1281 355 Balance 1031 1281 355 Weight 90.6 kg 91.8 kg General appearance: PRESENT: no acute distress, well-developed, well-nourished Head exam: PRESENT: atraumatic, normocephalic Eye exam: PRESENT: conjunctiva pink, EOMI, PERRLA. ABSENT: scleral icterus Ear exam: PRESENT: normal external ear exam Mouth exam: PRESENT: moist, tongue midline Neck exam: ABSENT: carotid bruit, JVD, lymphadenopathy, thyromegaly Respiratory exam: PRESENT: clear to auscultation abbe. ABSENT: rales, rhonchi, wheezes Cardiovascular exam: PRESENT: RRR. ABSENT: diastolic murmur, rubs, systolic murmur Pulses: PRESENT: normal dorsalis pedis pul Vascular exam: PRESENT: normal capillary refill GI/Abdominal exam: PRESENT: normal bowel sounds, soft. ABSENT: distended, guarding, mass, organolmegaly, rebound, tenderness Rectal exam: PRESENT: deferred Extremities exam: PRESENT: full ROM. ABSENT: calf tenderness, clubbing, pedal edema Musculoskeletal exam: PRESENT: ambulatory - with straight cane Neurological exam: PRESENT: alert, awake, oriented to person, oriented to place , oriented to time, oriented to situation, other - LUE 4/5, LLE 3/5. +pronator drift to LUE. LUE/LLE paresthesia. ABSENT: motor sensory deficit Psychiatric exam: PRESENT: appropriate affect, normal mood. ABSENT: homicidal ideation, suicidal ideation Skin exam: PRESENT: dry, intact, warm. ABSENT: cyanosis, rash Results Laboratory Results: 09/12/17 05:35 09/12/17 05:35 09/12/17 09/12/17 09/12/17 05:35 05:35 05:35 WBC 5.3 RBC 4.13 Hgb 12.4 Hct 36.5 MCV 88 MCH 30.1 MCHC 34.1 RDW 13.9 Plt Count 203 Seg Neutrophils % 49.1 Lymphocytes % 41.7 Monocytes % 6.7 Eosinophils % 2.0 Basophils % 0.5 Absolute Neutrophils 2.6 Absolute Lymphocytes 2.2 Absolute Monocytes 0.4 Absolute Eosinophils 0.1 Absolute Basophils 0.0 Sodium 147.7 H Potassium 3.9 Chloride 113 H Carbon Dioxide 24 Anion Gap 11 BUN 14 Creatinine 0.81 Est GFR ( Amer) > 60 Est GFR (Non-Af Amer) > 60 Glucose 93 Calcium 9.3 Phosphorus 3.7 Magnesium 2.3 C-Reactive Protein < 5.0 Impressions: Chest X-Ray 09/09/17 20:27 IMPRESSION: NO SIGNIFICANT RADIOGRAPHIC FINDING IN THE CHEST. Head CT 09/09/17 20:27 IMPRESSION: No acute or suspicious intracranial abnormality. Stable exam. EVIDENCE OF ACUTE STROKE: NO. Brain MRI with MRA 09/11/17 00:00 IMPRESSION: NORMAL MRA OF THE [place]. Carotid Doppler Study 09/11/17 00:00 IMPRESSION: Left: 50- 69% stenosis ICA, closer to 50%. Right: No significant stenosis. Cervical Spine MRI 09/11/17 00:00 IMPRESSION: Multilevel spondylosis. There is moderate spinal stenosis and bilateral exit foraminal stenosis is C5-6. Less prominent changes at C3-4 and C4-5. Head MRI 09/11/17 12:12 IMPRESSION: Normal brain. EVIDENCE OF ACUTE STROKE: NO. Lumbar Spine MRI 09/12/17 00:00 IMPRESSION: Degenerative changes most pronounced at L4-5 Assessment & Plan - Diagnosis (1) TIA (transient ischemic attack) Qualifiers: Transient cerebral ischemia type: unspecified Qualified Code(s): G45.9 - Transient cerebral ischemic attack, unspecified Is this a current diagnosis for this admission?: Yes Plan: Patient presented with an acute onset of altered mental status, having appeared to have 'spaced out with report of having difficulty remembering the names of her pets. Upon arrival to the emergency department her symptoms have resolved. She is now having intermittent difficulty with increased paresthesia and weakness to the left upper and lower extremities from her baseline requirement and intermittent difficulty with word finding per report.' No focal deficits or obvious expressive aphasia is noted today. Head CT is negative. Lipid profile within normal limits MRI/MRA of the brain is negative. Bilateral carotid Doppler showed a 50-69% stenosis of the left ICA. Right ICA shows no stenosis. Echocardiogram is benign. MRI of the cervical spine showed multilevel spondylolysis with moderate spinal stenosis of C5 through 6. MRI of the lumbar spine shows degenerative changes at L4/5 without definitive nerve root impingement. Sed rate and C-reactive protein are both normal; effectively ruling out vasculitis. We will continue Plavix, aspirin, Lipitor, and lisinopril. PT/OT have been consulted; per the report the patient is independent with transfers and capable of ambulating with a straight cane. They recommend home physical therapy at discharge. [facility] was consulted by the previous provider. They stated that the increased weakness on the ipsilateral side of the carotid artery stenosis is not likely sales representative meats of CVA. They state that her TIA symptoms could be a result of subclinical seizure which is common in patients with a history of CVA. Per their recommendations, the patient has been placed on Keppra 50 mg twice daily. She should follow-up with outpatient neurology. (2) Essential hypertension Is this a current diagnosis for this admission?: Yes Plan: The patient endorses a history of hypertension. Her home blood pressure medications have been resumed. The patient has remained normotensive since arrival. (3) Hyperlipidemia Is this a current diagnosis for this admission?: Yes Plan: Continue home dose Lipitor (4) Weakness of left upper extremity Is this a current diagnosis for this admission?: Yes Plan: Secondary to previous CVA and now complicated by C5/6 spondylosis. Her spinal stenosis may account for the intermittent nature of her worsened extremity weakness and parasthesias. Recommend f/u with outpatient physical therapy. The patient may benefit from follow up with an outpatient spinal/orthopedic surgeon. - Time Time Spent with patient: 25-34 minutes Medications reviewed and adjusted accordingly: Yes Anticipated discharge: Home Within: within 24 hours
[2017-09-12] MEDS: ATORVASTATIN CALCIUM 80 MG TABLET PO SCH (21:39)
[2017-09-12] MEDS: NORTRIPTYLINE HCL 25 MG CAPSULE PO SCH (21:45)
[2017-09-13 06:03] LABS: HEMATOCRIT 36.9 % (36.0-47.0); HEMOGLOBIN 12.4 g/dL (12.0-15.5); MEAN CORPUSCULAR HEMOGLOBIN 29.6 pg (27.0-33.4); MEAN CORPUSCULAR HGB CONC 33.5 g/dL (32.0-36.0); MEAN CORPUSCULAR VOLUME 89 fl (80-97); PLATELET COUNT 200 10^3/uL (150-450); RED BLOOD COUNT 4.17 10^6/uL (3.72-5.28); RED CELL DISTRIBUTION WIDTH 13.8 % (11.5-14.0); WHITE BLOOD COUNT 5.3 10^3/uL (4.0-10.5)
[2017-09-13 06:23] LABS: ANION GAP 13 (5-19); BLOOD UREA NITROGEN 14 mg/dL (7-20); CALCIUM 9.3 mg/dL (8.4-10.2); CARBON DIOXIDE 23 mmol/L (22-30); CHLORIDE 112 mmol/L (98-107); GLUCOSE 92 mg/dL (75-110); POTASSIUM 4.1 mmol/L (3.6-5.0); SODIUM 147.6 mmol/L (137-145)
[2017-09-13] MEDS: HEPARIN SOD (PORCINE) 5,000 UNIT/ML 1 ML SYRINGE SUBCUT SCH (06:30)
[2017-09-13] MEDS: TOPIRAMATE 100 MG TABLET PO SCH (06:30)
[2017-09-13] MEDS: LANSOPRAZOLE 30 MG TAB.RAP.DR PO SCH (06:30)
[2017-09-13] MEDS: CYANOCOBALAMIN (VITAMIN B-12) 1,000 MCG TABLET PO SCH (10:46)
[2017-09-13] MEDS: LISINOPRIL 5 MG TABLET PO SCH (10:46)
[2017-09-13] MEDS: CHOLECALCIFEROL (D3) 1,000 UNIT TABLET PO SCH (10:47)
[2017-09-13] MEDS: FOLIC ACID 1 MG TABLET PO SCH (10:47)
[2017-09-13] MEDS: ASPIRIN 81 MG TABLET, ENT COATED PO SCH (10:47)
[2017-09-13] MEDS: SERTRALINE HCL 50 MG TABLET PO SCH (10:47)
[2017-09-13] MEDS: MAGNESIUM OXIDE 400 MG TABLET PO SCH (10:47)
[2017-09-13] MEDS: LEVETIRACETAM 500 MG TABLET PO SCH (10:47)
[2017-09-13] MEDS: CLOPIDOGREL BISULFATE 75 MG TABLET PO SCH (10:47)
[2017-09-13 12:26] VITALS: BP 97/56
--- NOTE | 2017-09-13 13:06 | PDOC DISCHARGE SUMMARY ---
General - Admit/Disc Date/PCP Admission Date/Primary Care Provider: 09/10/17 12:38 ALFREDO BRADLEY PA-C Discharge Date: 09/13/17 - Discharge Diagnosis (1) TIA (transient ischemic attack) Is this a current diagnosis for this admission?: Yes Summary: Patient presented with an acute onset of altered mental status, having appeared to have 'spaced out' with report of having difficulty remembering the names of her pets. Upon arrival to the emergency department her symptoms have resolved. She is now having intermittent difficulty with increased paresthesia and weakness to the left upper and lower extremities from her baseline rand intermittent difficulty with word finding per patient report. No focal deficits or obvious expressive aphasia is noted. Head CT is negative. Lipid profile within normal limits MRI/MRA of the brain is negative. Bilateral carotid Doppler showed a 50-69% stenosis of the left ICA. Right ICA shows no stenosis. Echocardiogram is benign. MRI of the cervical spine showed multilevel spondylolysis with moderate spinal stenosis of C5/6. MRI of the lumbar spine shows degenerative changes at L4/5 without definitive nerve root impingement. Sed rate and C-reactive protein are both normal; effectively ruling out vasculitis. She is advised to continue Plavix, aspirin, Lipitor, and lisinopril. PT/OT were consulted; the patient is independent with transfers and capable of ambulating with a straight cane. They recommend home physical therapy at discharge which has been arranged. dant neurology was consulted by telephone. They stated that the increased weakness on the ipsilateral side of the carotid artery stenosis is not likely architectural representative of CVA. They state that her TIA symptoms could be a result of subclinical seizure which is common in patients with a history of CVA. Per their recommendations, the patient has been placed on Keppra 50 mg twice daily. She is advised against driving until cleared by neurology. (2) Essential hypertension Is this a current diagnosis for this admission?: Yes Summary: The patient's blood pressures were adequately controlled with her home medication regimen. (3) Hyperlipidemia Is this a current diagnosis for this admission?: Yes Summary: The patient's lipid panel was a appropriate; she is continued on her home dosing of Lipitor. (4) DDD (degenerative disc disease) Is this a current diagnosis for this admission?: Yes Summary: The patient is experiencing intermittent worsening of paresthesia and weakness to her left upper and lower extremities; secondary to previous CVA and now complicated by C5/6 spondylosis and degenerative changes of the lumbar spine. Her spinal stenosis may account for the intermittent nature of her worsening symptoms. Arrangements have been made for home physical therapy services. The patient may benefit from follow up with an outpatient spinal/orthopedic surgeon. (5) Hypernatremia Is this a current diagnosis for this admission?: Yes Summary: Mild and asymptomatic; stable. Recommend follow up BMP at her follow up visit with her primary care provider. - Additional Information Resuscitation Status: Full Code Discharge Diet: Cardiac Discharge Activity: Activity As Tolerated, Balance Activity w/Rest Prescriptions: Aspirin [Ecotrin 81 mg EC Tablet] 81 mg PO DAILY #90 tabec Levetiracetam [Keppra 500 mg Tablet] 500 mg PO Q12 #60 tablet Home Medications: Albuterol Sulfate [Proair HFA Inhalation Aerosol 8.5 gm MDI] 2 puff IH Q4HP PRN 09/10/17 Atorvastatin Calcium [Lipitor 80 mg Tablet] 40 mg PO QHS 09/10/17 Butalb/Acetaminophen/Caffeine [Fioricet (50-325-40 mg) Tablet] 1 tab PO DAILYP PRN 09/10/17 Calcium Carbonate [Tums Chewable 500 mg Tab.chew] 500 mg PO TIDP PRN 09/10/17 Cetirizine HCl [Zyrtec 10 mg Tablet] 10 mg PO QHS 09/10/17 Cholecalciferol (Vitamin D3) [Vitamin D3 1000 Unit Tablet] 2,000 unit PO DAILY 09/10/17 Clopidogrel Bisulfate [Plavix 75 mg Tablet] 75 mg PO DAILY 09/10/17 Cyanocobalamin (Vitamin B-12) [Vitamin B-12 1000 mcg Tablet] 1,000 mcg PO DAILY 09/10/17 Folic Acid [Folvite 1 mg Tablet] 1 mg PO DAILY 09/10/17 Lisinopril [Prinivil 5 mg Tablet] 5 mg PO DAILY 09/10/17 Magnesium Oxide [Mag-Ox 400 mg Tablet] 400 mg PO BID 09/10/17 Nortriptyline HCl [Pamelor 25 mg Capsule] 25 mg PO QHS 09/10/17 Pantoprazole Sodium [Protonix] 40 mg PO DAILY 09/10/17 Sertraline HCl [Zoloft] 150 mg PO DAILY 09/10/17 Topiramate [Topamax 100 mg Tablet] 100 mg PO BID 09/10/17 Aspirin [Ecotrin 81 mg EC Tablet] 81 mg PO DAILY #90 tabec 09/13/17 Levetiracetam [Keppra 500 mg Tablet] 500 mg PO Q12 #60 tablet 09/13/17 History of Present Illness History of Present Illness: Per H&P by Dr. Vásquez: HERIBERTO BARBER is a 56 year old left-handed female with history of CVA with left-sided residual weakness and cerebral aneurysm (post coiling 5 years ago), migraine headaches and essential hypertension was admitted with above-mentioned complaints. Some of the history was obtained from her son at bedside. The patient apparently slept all day and woke up around 5 PM. She noticed that she was dizzy when she woke up but denied any lightheadedness or vertigo. And half an hour later, while sitting in the kitchen drinking her coffee and conversing with her son who was preparing dinner, she reportedly stopped talking abruptly. She seemed to be confused and was unable to answer very simple questions like where she was and the name of her cat and dogs around her. Her son did not report that she had any slurred speech but that she rather seemed to have very slow mentation. According to the patient, she felt increased weakness in both her left arm and leg and increased numbness in her left arm. But there was no report of any headache, visual disturbances, dysarthria or dysphagia. There was also no report of any loss of consciousness, seizure activity or postictal state. The episode lasted about 15 minutes, and by the time she got to the ED her symptoms seemed to be improving. She said that she is compliant with her medications. She takes 75 mg Plavix daily in addition to 80 mg Lipitor daily. The patient denied any chest pain, shortness of breath, cough or fever but she was having some chills. She said that she drinks occasional martini and her last drink was last night. She usually uses a cane to walk long distances which she does seldomly. In the ED, her temperature was 98.7, heart rate 79, respiratory rate 16, blood pressure 131/78 with oxygen saturation of 97% on room air. Her WBC was 6.3 and her blood glucose was 85. Her initial troponin was negative. Her chest x-ray and head CAT scan were both unremarkable. She received 325 mg aspirin 1. She is currently complaining of feeling" foggy" but she is able to understand and follow simple commands. Physical Exam Vital Signs: Temp Pulse Resp BP Pulse Ox 97.8 F 63 18 97/56 L 99 09/13/17 11:03 09/13/17 11:03 09/13/17 11:03 09/13/17 11:03 09/13/17 11:18 Intake & Output 09/12/17 09/13/17 09/14/17 06:59 06:59 06:59 Intake Total 1281 1351 Balance 1281 1351 Weight 91.8 kg 92.7 kg General appearance: PRESENT: no acute distress, well-developed, well-nourished, other - Overweight Head exam: PRESENT: atraumatic, normocephalic Eye exam: PRESENT: conjunctiva pink, EOMI, PERRLA. ABSENT: scleral icterus Ear exam: PRESENT: normal external ear exam Mouth exam: PRESENT: moist, tongue midline Neck exam: ABSENT: carotid bruit, JVD, lymphadenopathy, thyromegaly Respiratory exam: PRESENT: clear to auscultation abbe, symmetrical, unlabored. ABSENT: rales, rhonchi, wheezes Cardiovascular exam: PRESENT: RRR. ABSENT: diastolic murmur, rubs, systolic murmur Pulses: PRESENT: normal dorsalis pedis pul Vascular exam: PRESENT: normal capillary refill GI/Abdominal exam: PRESENT: normal bowel sounds, soft. ABSENT: distended, guarding, mass, organolmegaly, rebound, tenderness Rectal exam: PRESENT: deferred Extremities exam: PRESENT: full ROM. 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 ABSENT: motor sensory deficit Psychiatric exam: PRESENT: appropriate affect, normal mood. ABSENT: homicidal ideation, suicidal ideation Skin exam: PRESENT: dry, intact, warm. ABSENT: cyanosis, rash Results Laboratory Results: 09/13/17 05:10 09/13/17 05:10 09/13/17 09/13/17 05:10 05:10 WBC 5.3 RBC 4.17 Hgb 12.4 Hct 36.9 MCV 89 MCH 29.6 MCHC 33.5 RDW 13.8 Plt Count 200 Sodium 147.6 H Potassium 4.1 Chloride 112 H Carbon Dioxide 23 Anion Gap 13 BUN 14 Creatinine 0.90 Est GFR ( Amer) > 60 Est GFR (Non-Af Amer) > 60 Glucose 92 Calcium 9.3 Impressions: Chest X-Ray 09/09/17 20:27 IMPRESSION: NO SIGNIFICANT RADIOGRAPHIC FINDING IN THE CHEST. Head CT 09/09/17 20:27 IMPRESSION: No acute or suspicious intracranial abnormality. Stable exam. EVIDENCE OF ACUTE STROKE: NO. Brain MRI with MRA 09/11/17 00:00 IMPRESSION: NORMAL MRA OF THE [place]. Carotid Doppler Study 09/11/17 00:00 IMPRESSION: Left: 50- 69% stenosis ICA, closer to 50%. Right: No significant stenosis. Cervical Spine MRI 09/11/17 00:00 IMPRESSION: Multilevel spondylosis. There is moderate spinal stenosis and bilateral exit foraminal stenosis is C5-6. Less prominent changes at C3-4 and C4-5. Head MRI 09/11/17 12:12 IMPRESSION: Normal brain. EVIDENCE OF ACUTE STROKE: NO. Lumbar Spine MRI 09/12/17 00:00 IMPRESSION: Degenerative changes most pronounced at L4-5 Qualifiers - * PATEINT BEING DISCHARGED WITH ANY OF THE FOLLOWING DIAGNOSIS?: No Plan Discharge Plan: Discharge to home. Follow-up with primary care provider within 1 week. Follow-up with neurologist; advised against driving until cleared by neurology.
== END 2017-09-13 13:50 | disposition home or self-care (01) | DRG 69 ==
LOC: ER 19:33 → EH 23:07 → 3W 09-10 01:28 → OBSVTOIN 09-10 12:38
PROVIDERS: ADMIT Internal Medicine Geriatric Medicine; ATTEND Internal Medicine Geriatric Medicine
DX: G45.9 Transient cerebral ischemic attack, unspecified (principal); G93.40 Encephalopathy, unspecified; I69.354 Hemiplegia and hemiparesis following cerebral infarction affecting left non-dominant side; E87.0 Hyperosmolality and hypernatremia; I10 Essential (primary) hypertension; J44.9 Chronic obstructive pulmonary disease, unspecified; Z96.89 Presence of other specified functional implants; F32.9 Major depressive disorder, single episode, unspecified; E53.8 Deficiency of other specified B group vitamins; K21.9 Gastro-esophageal reflux disease without esophagitis; E78.5 Hyperlipidemia, unspecified; M48.02 Spinal stenosis, cervical region; G43.909 Migraine, unspecified, not intractable, without status migrainosus; M51.36 Other intervertebral disc degeneration, lumbar region; G40.309 Generalized idiopathic epilepsy and epileptic syndromes, not intractable, without status epilepticus; Z88.6 Allergy status to analgesic agent; Z86.79 Personal history of other diseases of the circulatory system; Z87.891 Personal history of nicotine dependence; Z90.49 Acquired absence of other specified parts of digestive tract; Z90.710 Acquired absence of both cervix and uterus; Z79.02 Long term (current) use of antithrombotics/antiplatelets; Z79.899 Other long term (current) drug therapy
CPT/HCPCS: 36415; 70450; 70544; 70553; 71045; 72141; 72148; 80048; 80053; 80061; 81001; 82550; 82553; 83036; 83735; 84100; 84443; 84484; 85025; 85027; 85610; 85652; 85730; 86140; 93005; 93010; 93306; 93880; 96360; 99285; G0378; G8987-GO; G8988-GO; J1644; J3490; J7030

== ENCOUNTER → 2018-02-12 | Outpatient (CLI) | payer MEDICARE | LOC: OD 11:11 | PROVIDERS: ATTEND Nurse Practitioner Family | DX: R30.0 Dysuria (principal) | CPT/HCPCS: 87086; 87088; 87186 ==

== ENCOUNTER 2018-03-31 21:12 | Emergency (ER) | payer OTHER, MEDICARE ==
[2018-03-31 22:27] LABS: ABSOLUTE BASOPHILS # (AUTO) 0.1 10^3/uL (0.0-0.2); ABSOLUTE EOSINOPHILS # (AUTO) 0.1 10^3/uL (0.0-0.6); ABSOLUTE LYMPHOCYTES (AUTO) 2.6 10^3/uL (0.5-4.7); ABSOLUTE MONOCYTES (AUTO) 0.6 10^3/uL (0.1-1.4); ABSOLUTE NEUT (AUTO) 6.4 10^3/uL (1.7-8.2); BASOPHILS % (AUTO) 0.8 % (0-2); EOSINOPHILS % (AUTO) 0.6 % (0-6); HEMATOCRIT 40.5 % (36.0-47.0); HEMOGLOBIN 13.6 g/dL (12.0-15.5); LYMPHOCYTES % (AUTO) 26.3 % (13-45); MEAN CORPUSCULAR HEMOGLOBIN 29.7 pg (27.0-33.4); MEAN CORPUSCULAR HGB CONC 33.5 g/dL (32.0-36.0); MEAN CORPUSCULAR VOLUME 89 fl (80-97); MONOCYTES % (AUTO) 6.6 % (3-13); PLATELET COUNT 263 10^3/uL (150-450); RED BLOOD COUNT 4.57 10^6/uL (3.72-5.28); RED CELL DISTRIBUTION WIDTH 13.4 % (11.5-14.0); SEGMENTED NEUTROPHILS % (AUTO) 65.7 % (42-78); TOTAL CELLS COUNTED % (AUTO) 100 %; WHITE BLOOD COUNT 9.8 10^3/uL (4.0-10.5)
[2018-03-31 22:48] LABS: ALANINE AMINOTRANSFERASE 19 U/L (9-52); ALBUMIN 4.3 g/dL (3.5-5.0); ALKALINE PHOSPHATASE 56 U/L (38-126); ANION GAP 13 (5-19); ASPARTATE AMINO TRANSFERASE 27 U/L (14-36); BILIRUBIN,DIRECT 0.3 mg/dL (0.0-0.4); BILIRUBIN,TOTAL 0.4 mg/dL (0.2-1.3); BLOOD UREA NITROGEN 22 mg/dL (7-20); CALCIUM 9.5 mg/dL (8.4-10.2); CARBON DIOXIDE 25 mmol/L (22-30); CHLORIDE 110 mmol/L (98-107); GLUCOSE 84 mg/dL (75-110); POTASSIUM 4.2 mmol/L (3.6-5.0); SODIUM 147.5 mmol/L (137-145)
--- NOTE | 2018-03-31 22:54 | RADIOLOGY REPORT (SQ) ---
EXAM DESCRIPTION: XR CHEST 1 VIEW COMPLETED DATE/TME: 03/31/2018 21:57 CLINICAL HISTORY: 57 years Female, cp COMPARISON: None. NUMBER OF VIEWS/TECHNIQUE: 1/AP FINDINGS: Increased lung volume, clear parenchyma, normal cardiac silhouette, atherosclerosis, and intact bony thorax. IMPRESSION: No acute cardiopulmonary findings.
[2018-03-31] MEDS ORDERED: NITROGLYCERIN 0.4 MG/TAB 25 TAB/BOTTLE SL PRN (23:36)
[2018-03-31] MEDS ORDERED: MORPHINE SULFATE 10 MG/ML INJ IV PRN (23:36)
--- NOTE | 2018-03-31 23:42 | ER Document Report ---
ED General - General Chief Complaint: Chest Pain Stated Complaint: CHEST PAIN/LEFT ARM NUMBNESS Time Seen by Provider: 03/31/18 21:57 Notes: Patient is a 57-year-old female with a past medical history of a prior TIA, no known history of hypertension hyperlipidemia but states that she has been treated with a statin medication due to her prior TIA, presents with 2-3 hours of diffuse chest wall pain and left arm tingling. The patient noted headache in describes the pain in her chest as being a stabbing, aching pain worsened by movement. Triage which she now denies. She has not tried anything beyond aspirin for improvement of the pain. Denies a history of similar symptoms in the past. States the pain started after she had been out working in the yard for several hours. She states that the pain was not exertional in nature. States that she had some mild associated nausea but no diaphoresis, shortness of breath or vomiting. She denies any known history of coronary artery disease. Has never had a cardiac catheterization or stress test. She has not contacted her general doctor regarding today's concerns. TRAVEL OUTSIDE OF THE [place] IN LAST 30 DAYS: No - Related Data Allergies/Adverse Reactions: codeine Adverse Reaction (Verified 03/31/18 21:13) Past Medical History - General Information source: Patient - Social History Smoking Status: Former Smoker Frequency of alcohol use: None Drug Abuse: None Lives with: Spouse/Significant other Family History: Reviewed & Not Pertinent - Past Medical History Cardiac Medical History: Reports: Hx Hypercholesterolemia, Hx Hypertension Neurological Medical History: Reports: Hx Cerebrovascular Accident - 4 years ago , Hx Migraine Renal/ Medical History: Denies: Hx Peritoneal Dialysis GI Medical History: Reports: Hx Gastroesophageal Reflux Disease Psychiatric Medical History: Reports: Hx Depression Past Surgical History: Reports: Hx Abdominal Surgery, Hx Appendectomy, Hx Hysterectomy, Other - Lasik left eye. - Immunizations Hx Diphtheria, Pertussis, Tetanus Vaccination: Yes Review of Systems - Review of Systems Notes: Constitutional: Negative for fever. HENT: Negative for sore throat. Eyes: Negative for visual changes. Cardiovascular: Positive for chest pain. Respiratory: Negative for shortness of breath. Gastrointestinal: Negative for abdominal pain, vomiting or diarrhea. Genitourinary: Negative for dysuria. Musculoskeletal: Negative for back pain. Skin: Negative for rash. Neurological: Negative for headaches, weakness or numbness. 10 point ROS negative except as marked above and in HPI. Physical Exam - Vital signs Vitals: Temp Pulse Resp BP Pulse Ox 98.6 F 96 18 114/58 L 97 03/31/18 21:18 03/31/18 21:18 03/31/18 21:18 03/31/18 21:18 03/31/18 21:18 Interpretation: Normal Notes: PHYSICAL EXAMINATION: GENERAL: Well-appearing, well-nourished and in no acute distress. HEAD: Atraumatic, normocephalic. EYES: Pupils equal round and reactive to light, extraocular movements intact, sclera anicteric, conjunctiva are normal. ENT: nares patent, oropharynx clear without exudates. Moist mucous membranes. NECK: Normal range of motion, supple without lymphadenopathy LUNGS: Breath sounds clear to auscultation bilaterally and equal. No wheezes rales or rhonchi. HEART: Regular rate and rhythm without murmurs Chest wall: Pain on palpation of the central chest bilaterally ABDOMEN: Soft, nontender, normoactive bowel sounds. No guarding, no rebound. No masses appreciated. EXTREMITIES: Normal range of motion, no pitting or edema. No cyanosis. NEUROLOGICAL: No focal neurological deficits. Moves all extremities spontaneously and on command. PSYCH: Normal mood, normal affect. SKIN: Warm, Dry, normal turgor, no rashes or lesions noted. Course - Re-evaluation Re-evalutation: 03/31/18 23:36 Presentation of chest pain in an otherwise well appearing patient. Low clinical suspicion for ACS given clinical history, exam, EKG without ST elevations or depressions, and negative initial troponin. HEART score less than or equal to 3. PE also seems unlikely given clinical history, absence of tachycardia or dyspnea. Wells score is 0. CXR without evidence of pneumothorax or pneumonia. No widened mediastinum. Aortic dissection also seems unlikely given history, symmetric pulses, CXR, and vitals. Will obtain repeat troponin and reassess the patient 04/01/18 02:25 Delta troponin remains normal. Patient is without any pain at this point. States that nitroglycerin did not provide him significant relief with the morphine did completely resolve her pain. Overall assessment: Chest pain in a patient without evidence of cardiac or other serious etiology on workup today. I discussed with patient that, based on their age, risk factors and emergency department testing today, the likelihood that their symptoms are related to a heart attack is very low (estimated risk of heart attack or over the next 30 days of less than 1%). The patient demonstrates decision making capacity and has verbalized an understanding of these risks to me. Based on this, the patient has chosen to follow-up as an outpatient. Usual chest pain return precautions reviewed. The patient states understanding and agreement with this plan. HEART Score: History0 ECG0 Age1 Risk Factors2 Troponin0 Total: 3 04/01/18 02:51 - Vital Signs Vital signs: Temp Pulse Resp BP Pulse Ox 98.6 F 96 22 H 126/72 H 95 03/31/18 21:18 03/31/18 21:18 04/01/18 02:01 04/01/18 02:01 04/01/18 02:01 - Laboratory Result Diagrams: 03/31/18 22:20 03/31/18 22:20 Laboratory results interpreted by me: 03/31/18 22:20 Sodium 147.5 H Chloride 110 H BUN 22 H Est GFR (Non-Af Amer) 49 L - Diagnostic Test Radiology reviewed: Image reviewed, Reports reviewed Radiology results interpreted by me: 03/31/18 23:37 Chest x-ray: No acute infiltrate - EKG Interpretation by Me Additional EKG results interpreted by me: 03/31/18 23:37 Sinus rhythm. Rate 85. No ST elevations or depressions. QTC is 433. Discharge - Discharge Clinical Impression: Chest pain Qualifiers: Chest pain type: unspecified Qualified Code(s): R07.9 - Chest pain, unspecified Condition: Good Disposition: HOME, SELF-CARE Additional Instructions: You were seen today for chest pain. The exact cause of your pain is unclear. However, based on your cardiac enzyme testing, chest x-ray, and EKG it does not appear that it is from an immediately life-threatening cause at this time. Although your testing here is normal is critical that you follow-up with your primary care physician for continued evaluation of this chest pain and possible stress testing. I recommended you see your physician within the next 24-48 hours to be evaluated for consideration of a stress test. Please return to emergency department immediately if you have worsening of your chest pain, shortness of breath, vomiting, become unable to exert yourself due to pain or difficulty breathing, you pass out, or have any pain that radiates into your arms, jaw, or back. Please also return if you have any additional symptoms that are concerning to you. Referrals: LOCALMD,NO [NO LOCAL MD] - Follow up as needed
[2018-04-01 02:35] VITALS: BP 126/72
--- NOTE | 2018-04-01 10:06 | EKG REPORT ---
SEVERITY:- NORMAL ECG - SINUS RHYTHM : Confirmed by: Kilo Bernal MD 01-Apr-2018 10:05:28
== END 2018-04-01 02:58 | disposition home or self-care (01) ==
LOC: ER 21:12
DX: R07.9 Chest pain, unspecified (principal); R20.0 Anesthesia of skin; I10 Essential (primary) hypertension; E78.5 Hyperlipidemia, unspecified; Z86.73 Personal history of transient ischemic attack (TIA), and cerebral infarction without residual deficits; Z90.710 Acquired absence of both cervix and uterus
CPT/HCPCS: 93005; 99285; 96374; 36415; 85025; 80053; 84484; 71045; 93010; J2270

== ENCOUNTER 2018-07-26 17:42 | Emergency (ER) | payer OTHER, MEDICARE ==
--- NOTE | 2018-07-26 18:39 | ER Document Report ---
ED Medical Screen (RME) - General Chief Complaint: Shortness Of Breath Stated Complaint: DIFFICULTY SWALLOWING Time Seen by Provider: 07/26/18 18:17 Primary Care Provider: LISETTE BABB MD [Primary Care Provider] - Follow up as needed Mode of Arrival: Ambulatory Information source: Patient TRAVEL OUTSIDE OF THE [place] IN LAST 30 DAYS: No - HPI Notes: 07/26/18 18:35 57-year-old female with a history of hypertension,diabetes, asthma and CVA who presents to the ED for complaints of having a productive cough cough, congestion with difficulty breathing since returning from [employer] approximately 2 days ago. Did get her flu shot this season. Denies any leg pain or calf pain. Reports some nausea, denies any vomiting or diarrhea reports chills, denies any fevers known bowel or bladder dysfunction, no saddle anesthesia. has not tried anything [id number]. Eating and drinking without issues. no rashes. vacc utd. denies cp. reports some SOB. Does not wear supplemental oxygen. Denies any pedal edema bilaterally. I have greeted and performed a rapid initial assessment of this patient. A comprehensive ED assessment and evaluation of the patient, analysis of test results and completion of medical decision making process will be conducted by an additional ED providers. - Related Data Allergies/Adverse Reactions: codeine Adverse Reaction (Verified 03/31/18 21:13) Past Medical History - Social History Chew tobacco use (# tins/day): No Frequency of alcohol use: Occasional Drug Abuse: None - Past Medical History Cardiac Medical History: Reports: Hx Hypercholesterolemia, Hx Hypertension Neurological Medical History: Reports: Hx Cerebrovascular Accident - 4 years ago, Hx Migraine Renal/ Medical History: Denies: Hx Peritoneal Dialysis GI Medical History: Reports: Hx Gastroesophageal Reflux Disease Psychiatric Medical History: Reports: Hx Depression Past Surgical History: Reports: Hx Abdominal Surgery, Hx Appendectomy, Hx Hysterectomy, Other - Lasik left eye. - Immunizations Hx Diphtheria, Pertussis, Tetanus Vaccination: Yes History of Influenza Vaccine for 02/2017 - 07/2017 Season: No Influenza Administration Date for 02/2017 - 07/2017 Season: 09/10/17 Review of Systems - Review of Systems EENT: Nose congestion, Nose discharge Respiratory: Cough, Short of breath Physical Exam - Vital signs Vitals: Temp Pulse Resp BP Pulse Ox 100.4 F 94 17 152/71 H 97 07/26/18 18:07 07/26/18 18:07 07/26/18 18:07 07/26/18 18:07 07/26/18 18:07 - HEENT Nasal: Clear rhinorrhea - Respiratory Respiratory status: No respiratory distress Chest status: Nontender Breath sounds: Normal Chest palpation: Normal - Cardiovascular Rhythm: Regular Heart sounds: Normal auscultation Course - Vital Signs Vital signs: Temp Pulse Resp BP Pulse Ox 100.4 F 94 17 152/71 H 97 07/26/18 18:07 07/26/18 18:07 07/26/18 18:07 07/26/18 18:07 07/26/18 18:07 Doctor's Discharge - Discharge Referrals: LISETTE BABB MD [Primary Care Provider] - Follow up as needed
--- NOTE | 2018-07-26 19:01 | RADIOLOGY REPORT (SQ) ---
EXAM DESCRIPTION: CHEST 2 VIEWS COMPLETED DATE/TIME: 07/26/2018 6:50 pm REASON FOR STUDY: cough with sob COMPARISON: 03/31/2018 TECHNIQUE: Frontal and lateral radiographic views of the chest acquired. NUMBER OF VIEWS: Two view. LIMITATIONS: None. FINDINGS: LUNGS AND PLEURA: No pneumothorax. No consolidation or pleural effusion. MEDIASTINUM AND HILAR STRUCTURES: Stable. HEART AND VASCULAR STRUCTURES: Stable. BONES: No acute findings. HARDWARE: None in the chest. OTHER: No other significant finding. IMPRESSION: NO ACUTE FINDINGS. TECHNICAL DOCUMENTATION: JOB ID: [id number] [employer]- All Rights Reserved Reading location - IP/workstation name: [email or web address]
[2018-07-26 19:09] LABS: ABSOLUTE BASOPHILS # (AUTO) 0.1 10^3/uL (0.0-0.2); ABSOLUTE EOSINOPHILS # (AUTO) 0.1 10^3/uL (0.0-0.6); ABSOLUTE LYMPHOCYTES (AUTO) 1.1 10^3/uL (0.5-4.7); ABSOLUTE MONOCYTES (AUTO) 0.3 10^3/uL (0.1-1.4); ABSOLUTE NEUT (AUTO) 5.6 10^3/uL (1.7-8.2); BASOPHILS % (AUTO) 0.8 % (0-2); EOSINOPHILS % (AUTO) 0.9 % (0-6); HEMATOCRIT 42.4 % (36.0-47.0); HEMOGLOBIN 14.4 g/dL (12.0-15.5); LYMPHOCYTES % (AUTO) 14.9 % (13-45); MEAN CORPUSCULAR HEMOGLOBIN 30.1 pg (27.0-33.4); MEAN CORPUSCULAR VOLUME 89 fl (80-97); MONOCYTES % (AUTO) 4.8 % (3-13); PLATELET COUNT 255 10^3/uL (150-450); RED BLOOD COUNT 4.78 10^6/uL (3.72-5.28); RED CELL DISTRIBUTION WIDTH 13.5 % (11.5-14.0); SEGMENTED NEUTROPHILS % (AUTO) 78.6 % (42-78); TOTAL CELLS COUNTED % (AUTO) 100 %; WHITE BLOOD COUNT 7.2 10^3/uL (4.0-10.5)
[2018-07-26 19:24] LABS: A TYPE INFLUENZA AG NEGATIVE (NEGATIVE)
[2018-07-26 19:25] LABS: B INFLUENZA AG NEGATIVE (NEGATIVE)
[2018-07-26 19:28] LABS: ALANINE AMINOTRANSFERASE 39 U/L (9-52); ALBUMIN 4.9 g/dL (3.5-5.0); ALKALINE PHOSPHATASE 61 U/L (38-126); ANION GAP 9 (5-19); ASPARTATE AMINO TRANSFERASE 45 U/L (14-36); BILIRUBIN,DIRECT 0.3 mg/dL (0.0-0.4); BILIRUBIN,TOTAL 0.5 mg/dL (0.2-1.3); BLOOD UREA NITROGEN 18 mg/dL (7-20); CALCIUM 9.9 mg/dL (8.4-10.2); CARBON DIOXIDE 30 mmol/L (22-30); CHLORIDE 106 mmol/L (98-107); CREATINE KINASE 57 U/L (30-135); GLUCOSE 82 mg/dL (75-110); POTASSIUM 4.5 mmol/L (3.6-5.0); SODIUM 145.2 mmol/L (137-145); TOTAL PROTEIN 7.7 g/dL (6.3-8.2)
[2018-07-26 19:39] LABS: CREATINE KINASE MB 0.96 ng/mL (<4.55)
[2018-07-26 19:44] LABS: TROPONIN I < 0.012 ng/mL
[2018-07-26] MEDS ORDERED: IBUPROFEN 600 MG TABLET PO ONE (19:44)
[2018-07-26] MEDS ORDERED: BENZONATATE 100 MG CAPSULE PO ONE (19:44)
[2018-07-26] MEDS ORDERED: ONDANSETRON ODT 4 MG TAB (6 TAB/ER DISP) PO PRN (19:44)
--- NOTE | 2018-07-26 19:49 | ER Document Report ---
ED General - General Chief Complaint: Shortness Of Breath Stated Complaint: DIFFICULTY SWALLOWING Time Seen by Provider: 07/26/18 18:17 Primary Care Provider: LISETTE BABB MD [Primary Care Provider] - Follow up tomorrow Mode of Arrival: Ambulatory Notes: Patient is a 57-year-old female with a past medical history of prior CVA, hypertension, migraines, presents with 2 days of sore throat, dry cough, nausea and vomiting. Patient states that her symptoms started gradually, progressively worsened over that time. States that they did start back on a flight from [place]. Did receive an influenza vaccine this year. Notes that she somewhat feels short of breath particular when she coughs. Has used an albuterol inhaler at home with no improvement. Has also had fever but has not treated this at home. Has not seen her general physician regarding today's concerns. Denies history of similar symptoms in the past. Denies focal weakness, numbness, hemoptysis, headache, abdominal pain. TRAVEL OUTSIDE OF THE [place] IN LAST 30 DAYS: No - Related Data Allergies/Adverse Reactions: codeine Adverse Reaction (Verified 03/31/18 21:13) Past Medical History - General Information source: Patient - Social History Smoking Status: Former Smoker Chew tobacco use (# tins/day): No Frequency of alcohol use: Occasional Drug Abuse: None Lives with: Spouse/Significant other Family History: Reviewed & Not Pertinent Patient has suicidal ideation: No Patient has homicidal ideation: No - Past Medical History Cardiac Medical History: Reports: Hx Hypercholesterolemia, Hx Hypertension Neurological Medical History: Reports: Hx Cerebrovascular Accident - 4 years ago, Hx Migraine Renal/ Medical History: Denies: Hx Peritoneal Dialysis GI Medical History: Reports: Hx Gastroesophageal Reflux Disease Psychiatric Medical History: Reports: Hx Depression Past Surgical History: Reports: Hx Abdominal Surgery, Hx Appendectomy, Hx Hysterectomy, Other - Lasik left eye. - Immunizations Hx Diphtheria, Pertussis, Tetanus Vaccination: Yes Review of Systems - Review of Systems Notes: Constitutional: Positive for fever. HENT: Positive for sore throat. Eyes: Negative for visual changes. Cardiovascular: Negative for chest pain. Respiratory: Positive for cough and shortness of breath Gastrointestinal: Negative for abdominal pain, positive for vomiting Genitourinary: Negative for dysuria. Musculoskeletal: Negative for back pain. Skin: Negative for rash. Neurological: Negative for headaches, weakness or numbness. 10 point ROS negative except as marked above and in HPI. Physical Exam - Vital signs Vitals: Temp Pulse Resp BP Pulse Ox 100.4 F 94 17 152/71 H 97 07/26/18 18:07 07/26/18 18:07 07/26/18 18:07 07/26/18 18:07 07/26/18 18:07 Interpretation: Hypertensive Notes: PHYSICAL EXAMINATION: GENERAL: Appears uncomfortable but in no distress HEAD: Atraumatic, normocephalic. EYES: Pupils equal round and reactive to light, extraocular movements intact, sclera anicteric, conjunctiva are normal. ENT: nares patent, oropharynx clear without exudates. Moderately dry mucous membranes. NECK: Normal range of motion, supple without lymphadenopathy LUNGS: Breath sounds clear to auscultation bilaterally and equal. No wheezes rales or rhonchi. HEART: Regular rate and rhythm without murmurs ABDOMEN: Soft, nontender, normoactive bowel sounds. No guarding, no rebound. No masses appreciated. EXTREMITIES: Normal range of motion, no pitting or edema. No cyanosis. NEUROLOGICAL: No focal neurological deficits. Moves all extremities spontaneously and on command. PSYCH: Normal mood, normal affect. SKIN: Warm, Dry, normal turgor, no rashes or lesions noted. Course - Re-evaluation Re-evalutation: 07/26/18 19:45 Patient presents with cough, vomiting, sore throat and fever at home consistent with a flulike illness although our flu test here is negative. Clinical history and exam is not consistent with an acute bacterial meningitis, encephalitis, pneumonia, there is no evidence of a cellulitis on examination. Patient likewise denies any urinary symptoms. Chest x-ray is clear without any evidence of an acute pneumonia. Patient does not have any focal abdominal tenderness to suggest an acute biliary pathology, acute appendicitis, acute mesenteric ischemia, bowel obstruction, bowel, or any other life-threatening acute intra-abdominal pathology as the etiology of the fever and additional symptoms today. Labs are otherwise unremarkable. Patient is tolerated oral intake without difficulty. Vitals at time of reassessment are within normal limits. At this time will discharge with return precautions and follow-up recommendations. Verbal discharge instructions given a the bedside and opportunity for questions given. Medication warnings reviewed. Patient is in agreement with this plan and has verbalized understanding of return precautions and the need for primary care follow-up in the next 24-72 hours. - Vital Signs Vital signs: Temp Pulse Resp BP Pulse Ox 100.4 F 94 17 152/71 H 97 07/26/18 18:07 07/26/18 18:07 07/26/18 18:07 07/26/18 18:07 07/26/18 18:07 - Laboratory Result Diagrams: 07/26/18 18:50 07/26/18 18:50 Laboratory results interpreted by me: 07/26/18 07/26/18 18:50 18:50 Seg Neutrophils % 78.6 H Sodium 145.2 H AST 45 H - Diagnostic Test Radiology reviewed: Image reviewed, Reports reviewed Radiology results interpreted by me: 07/26/18 19:46 Chest x-ray: No acute infiltrate or pneumothorax Discharge - Discharge Clinical Impression: Cough, Sore throat, Generalized body aches Fever Qualifiers: Fever type: unspecified Qualified Code(s): R50.9 - Fever, unspecified Condition: Good Disposition: HOME, SELF-CARE Additional Instructions: Your symptoms are likely due to a viral infection either influenza or similar virus. The only treatment at this time is supportive care including drinking plenty of fluids, Tylenol and ibuprofen, as well as nausea medicines which you will be sent home with. Your symptoms will likely last for 7-10 days. Please return to the emergency department immediately if you become confused, have persistent vomiting, pass out, have severe headache, or have any other symptoms that are worrisome to you. Follow-up with your primary care doctor in the next several days. Prescriptions: Benzonatate [Tessalon Perles 100 mg Capsule] 100 mg PO Q8HP PRN #40 capsule PRN Reason: Referrals: LISETTE BABB MD [Primary Care Provider] - Follow up tomorrow
[2018-07-26] MEDS ORDERED: ACETAMINOPHEN 325 MG TABLET ONE (19:55)
[2018-07-26] MEDS ORDERED: ACETAMINOPHEN 325 MG TABLET PO ONE (19:56)
[2018-07-26 20:01] VITALS: BP 132/61
== END 2018-07-26 19:55 | disposition home or self-care (01) ==
LOC: ER 17:42
DX: J02.9 Acute pharyngitis, unspecified (principal); R06.02 Shortness of breath; M79.10 Myalgia, unspecified site; R11.2 Nausea with vomiting, unspecified; I10 Essential (primary) hypertension; E78.00 Pure hypercholesterolemia, unspecified; Z86.73 Personal history of transient ischemic attack (TIA), and cerebral infarction without residual deficits; Z88.6 Allergy status to analgesic agent; Z90.710 Acquired absence of both cervix and uterus
CPT/HCPCS: 36415; 71046; 80053; 82550; 82553; 84484; 85025; 87804; 99283

== ENCOUNTER 2019-07-18 15:34 | Emergency (ER) | payer OTHER, MEDICARE ==
--- NOTE | 2019-07-18 16:16 | ER Document Report ---
ED Medical Screen (RME) - General Chief Complaint: Leg Pain Stated Complaint: LEFT LEG PAIN Time Seen by Provider: 07/18/19 16:08 Notes: HPI: 58-year-old female with history of multiple strokes who had a stroke most recently June 25 in [place] which resulted in her having left-sided facial droop left arm and leg weakness that resolved after TPA presenting with intermittent anterior left leg pain that seems to come and go. Patient denies acute trauma to the leg. Denies numbness tingling. States that when the pain starts it is very sudden and sharp and "stops me in my tracks". She has not followed up with neurology locally, follows at the [place] normally I have greeted and performed a rapid initial assessment of this patient. A comprehensive ED assessment and evaluation of the patient, analysis of test results and completion of the medical decision making process will be conducted by additional ED providers PHYSICAL EXAMINATION: GENERAL: Well-appearing, well-nourished and in mild acute distress. HEAD: Atraumatic, normocephalic. EYES: sclera anicteric, conjunctiva are normal. ENT: Moist mucous membranes. NECK: Normal range of motion LUNGS: Normal work of breathing, clear to auscultation HEART: 2+ radial pulses bilaterally, regular rate and rhythm ABD: limited by positioning for exam in triage. EXTREMITIES: no pitting or edema. No cyanosis. Mild tenderness over the anterior left tibia NEUROLOGICAL: No focal neurological deficits. Moves all extremities spontaneously and on command. PSYCH: Normal mood, normal affect. SKIN: Warm, Dry, normal turgor, no rashes or lesions noted. TRAVEL OUTSIDE OF THE [place]S. IN LAST 30 DAYS: No - Related Data Allergies/Adverse Reactions: codeine Adverse Reaction (Verified 07/18/19 16:07) Past Medical History - Past Medical History Cardiac Medical History: Reports: Hx Hypercholesterolemia, Hx Hypertension Neurological Medical History: Reports: Hx Cerebrovascular Accident - 4 years ago, Hx Migraine Renal/ Medical History: Denies: Hx Peritoneal Dialysis GI Medical History: Reports: Hx Gastroesophageal Reflux Disease Psychiatric Medical History: Reports: Hx Depression Past Surgical History: Reports: Hx Abdominal Surgery, Hx Appendectomy, Hx Hysterectomy, Other - Lasik left eye. - Immunizations Hx Diphtheria, Pertussis, Tetanus Vaccination: Yes Physical Exam - Vital signs Vitals: Temp Pulse Resp BP Pulse Ox 98.4 F 75 18 123/61 98 07/18/19 15:39 07/18/19 15:39 07/18/19 15:39 07/18/19 15:39 07/18/19 15:39 Course - Vital Signs Vital signs: Temp Pulse Resp BP Pulse Ox 98.4 F 75 18 123/61 98 07/18/19 15:39 07/18/19 15:39 07/18/19 15:39 07/18/19 15:39 07/18/19 15:39
[2019-07-18 16:41] LABS: ABSOLUTE EOSINOPHILS # (AUTO) 0.1 10^3/uL (0.0-0.6); ABSOLUTE LYMPHOCYTES (AUTO) 1.8 10^3/uL (0.5-4.7); ABSOLUTE MONOCYTES (AUTO) 0.5 10^3/uL (0.1-1.4); ABSOLUTE NEUT (AUTO) 4.1 10^3/uL (1.7-8.2); BASOPHILS % (AUTO) 0.7 % (0-2); HEMATOCRIT 38.2 % (36.0-47.0); HEMOGLOBIN 13.1 g/dL (12.0-15.5); LYMPHOCYTES % (AUTO) 27.4 % (13-45); MEAN CORPUSCULAR HEMOGLOBIN 30.4 pg (27.0-33.4); MEAN CORPUSCULAR HGB CONC 34.3 g/dL (32.0-36.0); MEAN CORPUSCULAR VOLUME 89 fl (80-97); PLATELET COUNT 241 10^3/uL (150-450); RED BLOOD COUNT 4.32 10^6/uL (3.72-5.28); RED CELL DISTRIBUTION WIDTH 13.3 % (11.5-14.0); SEGMENTED NEUTROPHILS % (AUTO) 63.9 % (42-78); TOTAL CELLS COUNTED % (AUTO) 100 %; WHITE BLOOD COUNT 6.5 10^3/uL (4.0-10.5)
[2019-07-18 16:42] LABS: INTERNATIONAL RATION (INR) 0.97; PROTHROMBIN TIME 12.9 SEC (11.4-15.4)
[2019-07-18 16:57] LABS: ALBUMIN 4.2 g/dL (3.5-5.0); ALKALINE PHOSPHATASE 57 U/L (38-126); ANION GAP 8 (5-19); ASPARTATE AMINO TRANSFERASE 25 U/L (14-36); BILIRUBIN,TOTAL 0.3 mg/dL (0.2-1.3); BLOOD UREA NITROGEN 12 mg/dL (7-20); CALCIUM 9.3 mg/dL (8.4-10.2); CARBON DIOXIDE 25 mmol/L (22-30); CHLORIDE 109 mmol/L (98-107); GLUCOSE 95 mg/dL (75-110); TOTAL PROTEIN 7.1 g/dL (6.3-8.2)
--- NOTE | 2019-07-18 16:57 | RADIOLOGY REPORT (SQ) ---
EXAM DESCRIPTION: TIBIA FIBULA LEFT COMPLETED DATE/TIME: 07/18/2019 4:34 pm REASON FOR STUDY: leg pain COMPARISON: None. NUMBER OF VIEWS: Two views. TECHNIQUE: Two radiographic images acquired of the left tibia and fibula to include the knee and ank le in at least one projection. LIMITATIONS: None. FINDINGS: MINERALIZATION: Normal. BONES: No acute fracture or dislocation. SOFT TISSUES: No soft tissue swelling or radiopaque foreign body. OTHER: No other finding. IMPRESSION: No acute osseous abnormality of the left tibia and fibula. TECHNICAL DOCUMENTATION: JOB ID: [id number] 2010 [employer]- All Rights Reserved Reading location - IP/workstation name: [email or web address]
--- NOTE | 2019-07-18 18:57 | ER Document Report ---
ED General - General Chief Complaint: Leg Pain Stated Complaint: LEFT LEG PAIN Time Seen by Provider: 07/18/19 16:08 TRAVEL OUTSIDE OF THE [place]S. IN LAST 30 DAYS: No - HPI Notes: Patient is a 58-year-old female who presents emergency department for evaluation of left leg pain. She states is primarily anteriorly, radiates around to the sides. It is sharp when it is there. She states it seems to be worsened by ambulation when it is present. Is not present constantly. She states it started after a flight to [place]. She really has not tried any medications to make it feel better, she states she has tried elevation which helps somewhat. She denies any chest pain or shortness of breath. Currently her pain is a 1 out of 5. - Related Data Allergies/Adverse Reactions: codeine Adverse Reaction (Verified 07/18/19 16:07) Home Medications: List reviewed, please see notes Past Medical History - General Information source: Patient - Social History Smoking Status: Former Smoker Chew tobacco use (# tins/day): No Family History: Reviewed & Not Pertinent Patient has suicidal ideation: No Patient has homicidal ideation: No - Past Medical History Cardiac Medical History: Reports: Hx Hypercholesterolemia, Hx Hypertension Neurological Medical History: Reports: Hx Cerebrovascular Accident, Hx Migraine Renal/ Medical History: Denies: Hx Peritoneal Dialysis GI Medical History: Reports: Hx Gastroesophageal Reflux Disease Psychiatric Medical History: Reports: Hx Depression Past Surgical History: Reports: Hx Abdominal Surgery, Hx Appendectomy, Hx Hysterectomy, Other - Lasik left eye. - Immunizations Hx Diphtheria, Pertussis, Tetanus Vaccination: Yes Review of Systems - Review of Systems Musculoskeletal: See HPI -: Yes All other systems reviewed and negative Physical Exam - Vital signs Vitals: Temp Pulse Resp BP Pulse Ox 98.4 F 75 18 123/61 98 07/18/19 15:39 07/18/19 15:39 07/18/19 15:39 07/18/19 15:39 07/18/19 15:39 - Notes Notes: Vital signs reviewed, please refer to chart. Head is normocephalic, atraumatic. Pupils equal round, reactive to light. Neck is supple without meningismus. Heart is regular rate and rhythm. Lungs are clear to auscultation bilaterally. Abdomen is soft, nontender, normoactive bowel sounds throughout. Extremities without cyanosis, clubbing. Right posterior calf is nontender. Left posterior calf is nontender, but she does have some tenderness over the sides of the calf. No pain overlying the tibia. Peripheral pulses are equal. Skin is warm and dry. Course - Re-evaluation Re-evalutation: 07/18/19 18:57 Patient presents emergency department for evaluation. She laboratory ves ication's and imaging as ordered through triage. It would certainly be atypical, but this patient developed pain shortly after a transatlantic flight to [place]. Given this information, we will evaluate for DVT. Patient is amenable to this plan, and is stable at this time. 07/18/19 21:49 Preliminary report on venous Doppler is found to be negative for DVT. At this point I do not have a clear etiology for this patient's pain. I will put her on a Shen 2 inhibitor and have her follow-up with primary care next week. She understands if she develops worsening or new concerning symptoms of any sort she needs to return immediately to the emergency department for evaluation. - Vital Signs Vital signs: Temp Pulse Resp BP Pulse Ox 98.1 F 65 18 114/55 L 96 07/18/19 19:08 07/18/19 19:08 07/18/19 15:39 07/18/19 19:08 07/18/19 19:08 - Laboratory Result Diagrams: 07/18/19 16:20 07/18/19 16:20 Laboratory results interpreted by me: 07/18/19 16:20 Chloride 109 H - Diagnostic Test Radiology reviewed: Reports reviewed Radiology results interpreted by me: 07/18/19 21:50 Tibia/Fibula X-Ray 07/18/19 16:14 IMPRESSION: No acute osseous abnormality of the left tibia and fibula. Discharge - Discharge Clinical Impression: Pain in left lyon Condition: Stable Disposition: HOME, SELF-CARE Instructions: Leg Pain Nonspecific ([facility]) Additional Instructions: No clear cause was found for your pain today. Your x-rays, blood work, and Doppler looking for blood clot were unremarkable. Please take medication as prescribed, preferably with food. Follow-up with your primary care provider next week. Return to the emergency department with worsening or new concerning symptoms of any sort.
--- NOTE | 2019-07-18 22:30 | RADIOLOGY REPORT (SQ) ---
Left lower extremity duplex venous ultrasonography HISTORY: Left leg swelling, rule out DVT. Technique: Duplex venous ultrasonography including color and spectral flow Doppler imaging was performed in left left lower extremity, focusing on the deep venous system. FINDINGS: There is no evidence of thrombosis in the left common femoral, superficial femoral and popliteal veins. The veins are compressible and demonstrate normal response to augmentation. IMPRESSION: No evidence of DVT in left lower extremity.
[2019-07-18 23:55] VITALS: BP 120/60
== END 2019-07-18 23:54 | disposition home or self-care (01) ==
LOC: ER 15:34
DX: M79.662 Pain in left lower leg (principal); I10 Essential (primary) hypertension; Z87.891 Personal history of nicotine dependence
CPT/HCPCS: 36415; 80053; 85025; 85610; 93971; 99284

== ENCOUNTER 2019-07-28 18:06 | Emergency (ER) | payer OTHER, MEDICARE ==
--- NOTE | 2019-07-28 18:35 | RADIOLOGY REPORT (SQ) ---
EXAM DESCRIPTION: CHEST SINGLE VIEW COMPLETED DATE/TIME: 07/28/2019 6:24 pm REASON FOR STUDY: stroke symptoms COMPARISON: 07/26/2018 TECHNIQUE: Single frontal radiographic view of the chest acquired. NUMBER OF VIEWS: One view. LIMITATIONS: None. FINDINGS: LUNGS AND PLEURA: No pneumothorax. No consolidation or pleural effusion. MEDIASTINUM AND HILAR STRUCTURES: Stable. HEART AND VASCULAR STRUCTURES: Stable. BONES: No acute findings. HARDWARE: None in the chest. OTHER: No other significant finding. IMPRESSION: NO ACUTE FINDINGS. TECHNICAL DOCUMENTATION: JOB ID: [id number] [place]-72 2010 [employer]- All Rights Reserved Reading location - IP/workstation name: [email or web address]
--- NOTE | 2019-07-28 18:51 | RADIOLOGY REPORT (SQ) ---
EXAM DESCRIPTION: CT HEAD WITHOUT COMPLETED DATE/TIME: 07/28/2019 6:32 pm REASON FOR STUDY: stroke symptoms COMPARISON: 09/09/2017 TECHNIQUE: Axial images acquired through the brain without intravenous contrast. Images reviewed wit h bone, brain and subdural windows. Images stored on PACS. All CT scanners at this facility use dose modulation, iterative reconstruction, and/or weight based d osing when appropriate to reduce radiation dose to as low as reasonably achievable (ALARA). [facility]: Dose Right [facility]: CareDose [facility]: Dose Right [facility]: Teradose 4D [facility]: Smart Eventable RADIATION DOSE: CT Rad equipment meets quality standard of care and radiation dose reduction techniq ues were employed. CTDIvol: 53.2 mGy. DLP: 964 mGy-cm.. LIMITATIONS: None. FINDINGS: VENTRICLES: Normal size and contour. CEREBRUM: Similar midline metallic foreign body in the region of the [place]. No hemorrhage. No midline shift. Age appropriate white matter. No evidence for acute infarction. CEREBELLUM: No masses. No hemorrhage. No alteration of density. No evidence for acute infarction. EXTRA-AXIAL SPACES: No fluid collections. ORBITS AND GLOBE: No intra- or extraconal masses. Normal contour of globe without masses. CALVARIUM: No fracture. PARANASAL SINUSES: No fluid or mucosal thickening. SOFT TISSUES: No mass or hematoma. OTHER: No other significant finding. IMPRESSION: NO ACUTE INTRACRANIAL FINDINGS. EVIDENCE OF ACUTE STROKE: NO. COMMENT: The findings were sent to the Radiology Results Communication Center at 18:45 on 07/28/2019 to be communicated to a licensed caregiver. TECHNICAL DOCUMENTATION: JOB ID: [id number] [place]-72 Quality ID # [id number]: Final reports with documentation of one or more dose reduction techniques (e.g., Au tomated exposure control, adjustment of the mA and/or kV according to patient size, use of iterative reconstruction technique) 2010 [employer]- All Rights Reserved Reading location - IP/workstation name: [email or web address]
--- NOTE | 2019-07-28 18:54 | ER Document Report ---
ED General - General Chief Complaint: Facial Droop Stated Complaint: LEFT FACIAL DROOP,NUMBNESS Time Seen by Provider: 07/28/19 18:39 TRAVEL OUTSIDE OF THE U.S. IN LAST 30 DAYS: No - HPI Notes: Patient is a 58-year-old female with a history of hypercholesterolemia, hypertension, aneurysm coil, previous possible CVA in May warranting TPA use in [place] presents complaining of having facial droop, confusion, weakness of her left side, and numbness of the left side of her body that occurred at 4:45 PM this evening/afternoon. Pt is currently on plavix and aspirin. Patient states that she has been able to eat and drink without difficulty. She has been urinating normally and having normal bowel movements. Patient was ambulatory. Her speech has been baseline per spouse. He has noted some confusion. Pt states that she could not remember her neighbors name and was getting irritated. Pt was working with a drill at the time of onset. Denies any headache, fever, head injury, neck pain, URI, sore throat, chest pain, palpitations, syncope, cough, shortness of breath, wheeze, dyspnea, abdominal pain, nausea/vomiting/diarrhea, urinary retention, dysuria, hematuria, loss of control of bowel or bladder, or rash. - Related Data Allergies/Adverse Reactions: codeine Adverse Reaction (Verified 07/18/19 16:07) Past Medical History - Social History Smoking Status: Unknown if Ever Smoked Family History: Reviewed & Not Pertinent - Past Medical History Cardiac Medical History: Reports: Hx Hypercholesterolemia, Hx Hypertension Neurological Medical History: Reports: Hx Cerebrovascular Accident, Hx Migraine Renal/ Medical History: Denies: Hx Peritoneal Dialysis GI Medical History: Reports: Hx Gastroesophageal Reflux Disease Psychiatric Medical History: Reports: Hx Depression Past Surgical History: Reports: Hx Abdominal Surgery, Hx Appendectomy, Hx Hysterectomy, Other - Lasik left eye. - Immunizations Hx Diphtheria, Pertussis, Tetanus Vaccination: Yes Review of Systems - Review of Systems -: Yes All other systems reviewed and negative Physical Exam - Vital signs Vitals: Temp 98.2 F 07/28/19 18:07 - Notes Notes: PHYSICAL EXAMINATION: GENERAL: Well-appearing, well-nourished and in no acute distress. A&Ox4. Answers questions appropriately. HEAD: Atraumatic, normocephalic. Non-tender. EYES: Pupils equal round and reactive to light, extraocular movements intact, sclera anicteric, conjunctiva are normal. No nystagmus. vis ravi intact. ENT: Nares patent and without discharge. oropharynx clear without exudates. No tonsilar hypertrophy or erythema. Moist mucous membranes. NECK: Normal range of motion, supple without lymphadenopathy. No rigidity/meningismus. No midline tenderness. LUNGS: Breath sounds clear to auscultation bilaterally and equal. No wheezes rales or rhonchi. HEART: Regular rate and rhythm without murmurs, rubs, gallops. ABDOMEN: Soft, nontender, nondistended abdomen. No guarding, no rebound. Normal bowel sounds present. No CVA tenderness bilaterally. Musculoskeletal: Ext b/l: FROM to passive/active. Strength 5+/5. No deficits noted. No bony tenderness of extremities. Extremities: No cyanosis, clubbing, or edema b/l. Peripheral pulses 2+. Capillary refill less than 2 seconds. NEUROLOGICAL: NIH 7 (dec sensation left side, left facial droop, pronator drift left, left drift left, limb ataxia with finger/nose and heel/lyon of the left side). Strength 4+/5 on the left and 5+/5 right. GCS 15. Cranial nerves grossly intact. Normal speech. PSYCH: Normal mood, normal affect. SKIN: Warm, Dry, normal turgor, no rashes or lesions noted. Course - Re-evaluation Re-evalutation: 07/28/19 19:[address] Zamora. NIH 7 with left-sided deficits at 4:45 PM approximately. Patient did have tpa June 08 2019 in [place] at that time. She has history of coiled aneurysm. Vitals are currently acceptable without significant tachycardia, tachypnea, or hypoxia. Call placed to [facility] for consult with use of TPA/neurology. They will call me back. 07/28/19 19:25 I was able to speak with Dr. Chatterjee, Neuro, who after thorough discussion regarding patient status, exam, and h/o TPA within the last 2mos, that he would err on the side of aggression and give TPA even though there is exclusion criteria for this. He does believe that without any imaging showing clot or residual deficits from recent stroke that it was most likely small vessel and risk would be low for use of TPA again for hemorrhage. He does state that if we do give TPA that he would like an ED to ED transfer by flight. Otherwise he would take the patient if we did a CTA of the head and neck which showed large vessel occlusion. Otherwise if we do not give TPA and there is no large vessel occlusion that we would be able to keep her here. I did review with Dr. Zamora and he would go with the neurologist's recommendations if pt and spouse agreeable to risk/benefit. I did thoroughly review the risks/benefits of tpa use with the patient and the risk of bleeding and . Pt verbalized understanding and is requesting tpa at this time. 07/28/19 19:38 Pt accepted and will be flying to [facility]. 07/28/19 19:50 TPA has been ordered (needed weight). 83.5kg. Pt will received 75mg of alteplase. The helicopter will be here in about 10 minutes. Pt has no significant changes in exam or condition. Pt has no new concerns or complaints. Vitals acceptable. Pt stable for transfer. - Vital Signs Vital signs: Temp Pulse Resp BP Pulse Ox 98.4 F 73 13 126/68 H 98 07/28/19 19:35 07/28/19 18:30 07/28/19 19:31 07/28/19 19:31 07/28/19 19:31 - Laboratory Result Diagrams: 07/28/19 19:02 07/28/19 19:02 Laboratory results interpreted by me: 07/28/19 07/28/19 18:45 19:02 Chloride 108 H POC Glucose 130 H Critical Care Note - Critical Care Note Total time excluding time spent on procedures (mins): 36 Comments: consulting and evaluating the patient. Discharge - Discharge Clinical Impression: CVA (cerebral vascular accident) Qualifiers: CVA mechanism: unspecified Qualified Code(s): I63.9 - Cerebral infarction, unspecified Condition: Fair Disposition: [facility]
[2019-07-28 19:10] LABS: ABSOLUTE EOSINOPHILS # (AUTO) 0.1 10^3/uL (0.0-0.6); ABSOLUTE LYMPHOCYTES (AUTO) 1.6 10^3/uL (0.5-4.7); ABSOLUTE MONOCYTES (AUTO) 0.4 10^3/uL (0.1-1.4); ABSOLUTE NEUT (AUTO) 3.7 10^3/uL (1.7-8.2); BASOPHILS % (AUTO) 0.7 % (0-2); EOSINOPHILS % (AUTO) 1.4 % (0-6); HEMATOCRIT 39.9 % (36.0-47.0); HEMOGLOBIN 13.3 g/dL (12.0-15.5); MEAN CORPUSCULAR HEMOGLOBIN 29.7 pg (27.0-33.4); MEAN CORPUSCULAR HGB CONC 33.2 g/dL (32.0-36.0); MEAN CORPUSCULAR VOLUME 89 fl (80-97); MONOCYTES % (AUTO) 6.5 % (3-13); PLATELET COUNT 254 10^3/uL (150-450); RED BLOOD COUNT 4.47 10^6/uL (3.72-5.28); RED CELL DISTRIBUTION WIDTH 12.8 % (11.5-14.0); SEGMENTED NEUTROPHILS % (AUTO) 63.4 % (42-78); TOTAL CELLS COUNTED % (AUTO) 100 %; WHITE BLOOD COUNT 5.9 10^3/uL (4.0-10.5)
--- NOTE | 2019-07-28 19:14 | ER Document Report ---
ED NIH Stroke Scale - NIH Stroke Scale When completed:: Before Alteplase *: 1. NIH scale should be completed with appropriate accompanying assessment tools. *: 2. The NIH should reflect what the patient is capable of doing and should not be coached by the clinician. 1a. Level of Consciousness: 0=Alert;keenly responsive -: 1=Drowsy -: 2=Obtunded -: 3=Coma/unresponsive or reflex to noxious stimuli. 1a. Responses: 0 1b. Orientation Questions: a. What month is it? -: b. How old are you? -: 0=Answers both questions correctly. -: 1=Answers one question correctly or patient is intubated or has orotracheal trauma. -: 2=Answers neither question correctly. 1b. Responses: 0 1c. Response to commands: a. Open and close eyes? -: b. Stock Layer and release hand? -: Credit is given despite weakness. Demonstration of task is permitted. Substitute command if hands cannot be used. -: 0=Performs both tasks correctly -: 1=Performs one task correctly -: 2=Performs neither task correctly 1c. Responses: 0 2. Gaze: Establish eye contact and instruct patient to "Follow my finger" -: 0=Normal -: 1=Partial gaze palsy. Gaze is abnormal in one or both eyes, but where forced deviation or total gaze paresis is not present. -: 2=Forced deviation or total gaze paresis. 2. Responses: 0 3. Visual Villalobos: Sees fingers in all four quadrants. -: 0=No visual loss. -: 1=Partial hemianopsia. -: 2=Complete hemianopsia. -: 3=Bilateral hemianopsia (including Cortical blindness) 3. Responses: 0 4. Facial Movement: Instruct patient to: -: a. Show me your teeth -: b. Raise your eyebrows -: c. Close your eyes -: d. Smile -: 0=Normal symmetrical movement -: 1=Minor paralysis (flattened nasolabial fold, asymmetry on smiling). -: 2=Partial paralysis (total or near total paralysis of lower face). -: 3=Complete paralysis of upper and lower face 4. Responses: 1 5. Motor functions (left arm): Alternate sides and extend each arm with palms down (90 degrees if sitting or 45 degrees for supine). -: 0=No drift;limb holds for full 10 seconds. -: 1=Drift; limb holds but drifts down before full 10 seconds, but does not hit bed. -: 2=Some effort against gravity; limb cannot get to or maintain position. -: 3=No effort against gravity; limb falls. -: 4=No movement. -: UN=Amputation, joint fusion, explain in comments. 5. Responses (left arm): 1 5. Motor Functions (right arm): Alternate sides and extend each arm with palms down (90 degrees if sitting or 45 degrees for supine). -: 0=No drift;limb holds for full 10 seconds. -: 1=Drift; limb holds but drifts down before full 10 seconds, but does not hit bed. -: 2=Some effort against gravity; limb cannot get to or maintain position. -: 3=No effort against gravity; limb falls. -: 4=No movement. -: UN=Amputation, joint fusion, explain in comments. 5. Responses (right arm): 0 6. Motor Functions (left leg): With patient lying supine, alternate sides and extend each leg (30 degrees always while supine). -: 0=No drift, leg holds position for full 5 seconds -: 1=Drift; leg falls before full 5 seconds but does not hit bed. -: 2=Some effort against gravity, leg falls to bed but some effort against gravity. -: 3=No effort against gravity, leg falls to bed immediately. -: 4=No movement. -: UN=Amputation, joint fusion; explain in comments. 6. Responses (left leg): 2 6. Motor Functions (right leg): With patient lying supine, alternate sides and extend each leg (30 degrees always while supine). -: 0=No drift, leg holds position for full 5 seconds -: 1=Drift; leg falls before full 5 seconds but does not hit bed. -: 2=Some effort against gravity, leg falls to bed but some effort against gravity. -: 3=No effort against gravity, leg falls to bed immediately. -: 4=No movement. -: UN=Amputation, joint fusion; explain in comments. 6. Responses (right leg): 0 7. Limb Ataxia: With eyes open instruct patient to: -: a. "Touch your finger to your nose". -: b. "Touch your heel to your lyon" -: 0=Absent -: 1=Present in one limb. -: 2=Present in two limbs. -: UN=Amputation or joint fusion; explain in comments. 7. Responses: 2 8. Sensory: Test sensation using pinprick or noxious stimuli. Test as many body parts as possible. -: 0=Normal;no sensory loss -: 1=Mile to moderate sensory loss (patient feels pin prick but is less sharp on affected side). -: 2=Severe or total sensory loss. 8. Responses: 1 9. Best Language: Instruct patient to: -: a. "Describe what you see in this picture." -: b. "Name the items in this picture." -: c. "Read these sentences." -: 0=No aphasia, normal -: 1=Mild to moderate aphasia. -: 2=Severe aphasia -: 3=Mute, global aphasia, no usable speech or auditory comprehension. 9. Responses: 0 10. Articulation, Dysarthia: Instruct patient to: -: "Read these words" or "Repeat these words" -: 0=Normal -: 1=Mild to moderate; patient may slur some words but can be understood without difficulty. -: 2=Severe; patients speech so slurred as to be unintelligible in the absence of dysphasia. -: UN=Intubated or other physical barrier, explain in comments. 10. Responses: 0 11. Extinction or inattention: 0=No abnormality -: 1= Visual, tactile, auditory, spatial, or personal inattention or extinction to bilateral simulation in one or the sensory modalities. -: 2=Profound sully-inattention or sully-inattention to more than one modality; does not recognize own hand. 11. Responses: 0 Total Score: 7
[2019-07-28 19:15] LABS: INTERNATIONAL RATION (INR) 0.99; PARTIAL THROMBOPLASTIN TIME 31.7 SEC (23.5-35.8); PROTHROMBIN TIME 13.1 SEC (11.4-15.4)
[2019-07-28 19:27] LABS: ALBUMIN 4.2 g/dL (3.5-5.0); ALKALINE PHOSPHATASE 63 U/L (38-126); ANION GAP 7 (5-19); ASPARTATE AMINO TRANSFERASE 23 U/L (14-36); BILIRUBIN,DIRECT 0.1 mg/dL (0.0-0.4); BILIRUBIN,TOTAL 0.4 mg/dL (0.2-1.3); BLOOD UREA NITROGEN 15 mg/dL (7-20); CALCIUM 9.2 mg/dL (8.4-10.2); CARBON DIOXIDE 27 mmol/L (22-30); CHLORIDE 108 mmol/L (98-107); CREATINE KINASE 32 U/L (30-135); GLUCOSE 104 mg/dL (75-110)
[2019-07-28 19:38] LABS: CREATINE KINASE MB 0.44 ng/mL (<4.55)
[2019-07-28] MEDS ORDERED: ALTEPLASE INJ 100 MG VIAL IV ONE (19:38)
[2019-07-28 19:40] LABS: TROPONIN I < 0.012 ng/mL
[2019-07-28 20:20] VITALS: BP 120/64
[2019-07-28 20:28] LABS: APPEARANCE,URINE CLOUDY; BILIRUBIN,URINE NEGATIVE (NEGATIVE); COLOR,URINE YELLOW; GLUCOSE, URINE NEGATIVE (NEGATIVE); KETONES,URINE NEGATIVE (NEGATIVE); PROTEIN,URINE NEGATIVE (NEGATIVE); UROBILINOGEN,URINE NEGATIVE mg/dL (<2.0)
--- NOTE | 2019-07-28 21:32 | EKG REPORT ---
SEVERITY:- NORMAL ECG - SINUS RHYTHM : Confirmed by: Kilo Bernal MD 28-Jul-2019 21:32:42
--- NOTE | 2019-07-29 06:25 | EKG REPORT ---
SEVERITY:- NORMAL ECG - SINUS RHYTHM : Confirmed by: Kilo Bernal MD 29-Jul-2019 06:25:10
== END 2019-07-28 20:15 | disposition short-term general hospital (02) ==
LOC: ER 18:06
DX: I63.9 Cerebral infarction, unspecified (principal); G81.94 Hemiplegia, unspecified affecting left nondominant side; R29.810 Facial weakness; R20.0 Anesthesia of skin; R27.0 Ataxia, unspecified; R41.0 Disorientation, unspecified; I10 Essential (primary) hypertension; R29.707 NIHSS score 7
CPT/HCPCS: 93005; 99291; 37195; 36415; 87086; 82553; 82962; 82550; 85025; 85610; 85730; 87088; 80053; 81001; 84484; 71045; 70450; 93010; J2997

== ENCOUNTER 2019-12-17 15:34 | Emergency (ER) | payer OTHER, MEDICARE ==
--- NOTE | 2019-12-17 17:21 | ER Document Report ---
ED Medical Screen (RME) - General Chief Complaint: Chest Pain Stated Complaint: BACK PAIN/CHEST PAIN Time Seen by Provider: 12/17/19 16:58 Primary Care Provider: SEBASTIÁN,RENZO [Primary Care Provider] - Follow up as needed TRAVEL OUTSIDE OF THE [place] 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 Patient is on anticoagulant therapy, Plavix, for her coiled, states her last head MRI was in [facility] in July. Denies any shortness of breath. Former smoker, quit 7 years ago. Reports chest pain has been constant for the last 2 days. Denies any shortness of breath, headache, fever or chills. Patient denies being a diabetic, denies any cardiac issues. Parents mother had hypertension, father is unknown. Patient states she is unsure if her drift or dysmetria on the left is residual from her previous CVA or if this is new neurological symptom. Dr. Brumfield, supervising ER physician made aware of possible stroke like symptoms and CT head being ordered I have greeted and performed a rapid initial assessment of this patient. A comprehensive ED assessment and evaluation of the patient, analysis of test results and completion of the medical decision making process will be conducted by additional ED providers. PHYSICAL EXAMINATION: GENERAL: Well-appearing, well-nourished and in no acute distress. HEAD: Atraumatic, normocephalic. EYES: Pupils equal round extraocular movements intact, conjunctiva are normal. NECK: Normal range of motion CV: s1, s2 regular LUNGS: No respiratory distress Musculoskeletal: Normal range of motion NEUROLOGICAL: Normal speech, left-sided drift, left-sided dysmetria. Face symmetrical, tongue midline. 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 Speech is clear. Alert and orientated x3 SKIN: Warm, Dry, normal turgor, no rashes or lesions noted. - Related Data Allergies/Adverse Reactions: codeine Adverse Reaction (Verified 12/17/19 16:58) Past Medical History - Social History Chew tobacco use (# tins/day): No Frequency of alcohol use: None Drug Abuse: None - Past Medical History Cardiac Medical History: Reports: Hx Hypercholesterolemia, Hx Hypertension Neurological Medical History: Reports: Hx Cerebrovascular Accident, Hx Migraine Renal/ Medical History: Denies: Hx Peritoneal Dialysis GI Medical History: Reports: Hx Gastroesophageal Reflux Disease Psychiatric Medical History: Reports: Hx Depression Past Surgical History: Reports: Hx Abdominal Surgery, Hx Appendectomy, Hx Hysterectomy, Other - Lasik left eye. - Immunizations Hx Diphtheria, Pertussis, Tetanus Vaccination: Yes Physical Exam - Vital signs Vitals: Temp Pulse Resp BP Pulse Ox 98.9 F 79 20 133/59 H 100 12/17/19 15:50 12/17/19 15:50 12/17/19 15:50 12/17/19 15:50 12/17/19 15:50 Course - Vital Signs Vital signs: Temp Pulse Resp BP Pulse Ox 98.9 F 79 20 133/59 H 100 12/17/19 15:50 12/17/19 15:50 12/17/19 15:50 12/17/19 15:50 12/17/19 15:50 Doctor's Discharge - Discharge [facility]errals: [facility] [[facility]] - Follow up as needed
[2019-12-17 17:32] LABS: ABSOLUTE EOSINOPHILS # (AUTO) 0.1 10^3/uL (0.0-0.6); ABSOLUTE LYMPHOCYTES (AUTO) 1.6 10^3/uL (0.5-4.7); ABSOLUTE MONOCYTES (AUTO) 0.3 10^3/uL (0.1-1.4); MONOCYTES % (AUTO) 5.7 % (3-13); PLATELET COUNT 271 10^3/uL (150-450); TOTAL CELLS COUNTED % (AUTO) 100 %
[2019-12-17 17:35] LABS: INTERNATIONAL RATION (INR) 0.94; PARTIAL THROMBOPLASTIN TIME 27.3 SEC (23.5-35.8); PROTHROMBIN TIME 12.5 SEC (11.4-15.4)
[2019-12-17 17:38] LABS: ABSOLUTE NEUT (AUTO) 3.1 10^3/uL (1.7-8.2); BASOPHILS % (AUTO) 0.9 % (0-2); EOSINOPHILS % (AUTO) 1.2 % (0-6); HEMATOCRIT 40.2 % (36.0-47.0); HEMOGLOBIN 13.9 g/dL (12.0-15.5); LYMPHOCYTES % (AUTO) 30.7 % (13-45); MEAN CORPUSCULAR HEMOGLOBIN 30.3 pg (27.0-33.4); MEAN CORPUSCULAR HGB CONC 34.7 g/dL (32.0-36.0); MEAN CORPUSCULAR VOLUME 87 fl (80-97); RED CELL DISTRIBUTION WIDTH 13.7 % (11.5-14.0); SEGMENTED NEUTROPHILS % (AUTO) 61.5 % (42-78); WHITE BLOOD COUNT 5.1 10^3/uL (4.0-10.5)
[2019-12-17 17:51] LABS: ALBUMIN 4.4 g/dL (3.5-5.0); ALKALINE PHOSPHATASE 56 U/L (38-126); ANION GAP 6 (5-19); ASPARTATE AMINO TRANSFERASE 25 U/L (14-36); BILIRUBIN,TOTAL 0.5 mg/dL (0.2-1.3); BLOOD UREA NITROGEN 13 mg/dL (7-20); CALCIUM 9.4 mg/dL (8.4-10.2); CARBON DIOXIDE 25 mmol/L (22-30); CHLORIDE 109 mmol/L (98-107); CREATINE KINASE 41 U/L (30-135); GLUCOSE 93 mg/dL (75-110); POTASSIUM 4.1 mmol/L (3.6-5.0); TOTAL PROTEIN 7.4 g/dL (6.3-8.2)
[2019-12-17 18:02] LABS: CREATINE KINASE MB 0.41 ng/mL (<4.55)
[2019-12-17 18:03] LABS: TROPONIN I < 0.012 ng/mL
--- NOTE | 2019-12-17 20:21 | RADIOLOGY REPORT (SQ) ---
INDICATION: L sided n/t down arm, L drift, L dysmetria @11am. COMPARISON: July 28, 2019 CORRELATION: None TECHNIQUE: Noncontrast spiral axial CT images were obtained from the skull base to vertex. This exam was performed according to our departmental dose-optimization program, which includes automated exposure control, adjustment of the mA and/or kV according to patient size and/or use of iterative reconstruction techniques. FINDINGS: There is no evidence of acute intracranial hemorrhage, midline shift, mass effect or mass lesion. Juárez-white differentiation is normal. There is no evidence of acute large territory infarct. Ventricles and extracerebral spaces are within normal limits, for age. Basal ganglia mineralization. Remote postsurgical change in the region of the anterior communicating artery. The visualized paranasal sinuses are grossly clear. The orbits and eyeballs are unremarkable. The mastoid air cells are clear. Skull base and calvarium appear intact. IMPRESSION: No acute intracranial process is identified. Remote postsurgical change. No adverse change
--- NOTE | 2019-12-17 20:31 | RADIOLOGY REPORT (SQ) ---
CLINICAL INDICATION: CP radiating to back, sharp x 2d. . TECHNIQUE: CT arteriography was obtained of the chest with multiplanar MIP and/or 3-D angiographic reconstructions. This exam was performed according to our departmental dose-optimization program, which includes automated exposure control, adjustment of the mA and/or kV according to patient size and/or use of iterative reconstruction techniques. COMPARISON: November 12, 2016. CORRELATION: None. FINDINGS: Adequate contrast bolus. Average Hounsfield unit measurement within main pulmonary artery segment of 372. Artifact from venous opacification. There is no evidence of pulmonary embolus. Thoracic aorta is of normal caliber. The heart is of normal size. No pericardial effusion. No bulky mediastinal adenopathy. The lungs are grossly clear. No consolidation or edema. No effusion or pneumothorax. 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 Visualized bones are unremarkable. IMPRESSION: No evidence of pulmonary embolus. Lungs grossly clear. Thoracic aorta is of normal caliber without aneurysm or dissection .
--- NOTE | 2019-12-17 21:13 | ER Document Report ---
ED Cardiac - General Chief Complaint: Chest Pain Stated Complaint: BACK PAIN/CHEST PAIN Time Seen by Provider: 12/17/19 16:58 [facility] Care Provider: [facility] [[facility]] - Follow up as needed TRAVEL OUTSIDE OF THE [place] IN LAST 30 DAYS: No - Related Data Allergies/Adverse Reactions: codeine Adverse Reaction (Verified 12/17/19 16:58) Past Medical History - Social History Smoking Status: Former Smoker Chew tobacco use (# tins/day): No Frequency of alcohol use: None Drug Abuse: None Family History: Reviewed & Not Pertinent Patient has homicidal ideation: No - Past Medical History Cardiac Medical History: Reports: Hx Hypercholesterolemia, Hx Hypertension Neurological Medical History: Reports: Hx Cerebrovascular Accident, Hx Migraine Renal/ Medical History: Denies: Hx Peritoneal Dialysis GI Medical History: Reports: Hx Gastroesophageal Reflux Disease Psychiatric Medical History: Reports: Hx Depression Past Surgical History: Reports: Hx Abdominal Surgery, Hx Appendectomy, Hx Hysterectomy, Other - Lasik left eye. - Immunizations Hx Diphtheria, Pertussis, Tetanus Vaccination: Yes Physical Exam - Vital signs Vitals: Temp Pulse Resp BP Pulse Ox 98.9 F 79 20 133/59 H 100 12/17/19 15:50 12/17/19 15:50 12/17/19 15:50 12/17/19 15:50 12/17/19 15:50 Course - Vital Signs Vital signs: Temp Pulse Resp BP Pulse Ox 98.9 F 79 20 133/59 H 100 12/17/19 15:50 12/17/19 15:50 12/17/19 15:50 12/17/19 15:50 12/17/19 15:50 - Laboratory Result Diagrams: 12/17/19 17:20 12/17/19 17:20 Laboratory results interpreted by me: 12/17/19 17:20 Chloride 109 H Discharge - Discharge Condition: Stable Disposition: HOME, SELF-CARE [facility]errals: [facility] [Primary [facility]] - Follow up as needed
[2019-12-18 00:09] VITALS: BP 103/89
--- NOTE | 2019-12-18 08:39 | EKG REPORT ---
SEVERITY:- NORMAL ECG - SINUS RHYTHM : Confirmed by: Mari Albert MD 18-Dec-2019 08:38:58
== END 2019-12-18 01:45 | disposition left against medical advice (07) ==
LOC: ER 15:34
DX: R07.9 Chest pain, unspecified (principal); M54.9 Dorsalgia, unspecified; R20.0 Anesthesia of skin; I69.954 Hemiplegia and hemiparesis following unspecified cerebrovascular disease affecting left non-dominant side; E78.00 Pure hypercholesterolemia, unspecified; I10 Essential (primary) hypertension; Z90.710 Acquired absence of both cervix and uterus
CPT/HCPCS: 36415; 70450; 71275; 80053; 82550; 82553; 84484; 85025; 85610; 85730; 93005; 93010; 99281

== ENCOUNTER 2020-04-30 17:14 | Emergency (ER) | payer OTHER, MEDICARE ==
[2020-04-30] MEDS ORDERED: MECLIZINE HCL 25 MG TABLET PO ONE (17:29)
--- NOTE | 2020-04-30 17:33 | ER Document Report ---
ED Medical Screen (RME) - General Chief Complaint: Headache Stated Complaint: HEADACHE Time Seen by Provider: 04/30/20 17:21 Primary Care Provider: RENZO LOWERY [Primary Care Provider] - Follow up as needed Notes: Patient presents complaining of dizziness off and on since December of this year. Patient reports sinus congestion and sinus headache for the past 2 weeks with sore throat. Patient states that she developed chest heaviness today. Patient states she has had abdominal pain for the past 2 weeks with nausea. Patient also complains of left eye twitching. Patient does have a history of previous CVA with left-sided weakness as well as migraine and cerebral aneurysm that has been coiled. I have greeted and performed a rapid initial assessment of this patient. A comprehensive ED assessment and evaluation of the patient, analysis of test results and completion of the medical decision making process will be conducted by additional ED providers. TRAVEL OUTSIDE OF THE [place] IN LAST 30 DAYS: No - Related Data Allergies/Adverse Reactions: codeine Adverse Reaction (Verified 12/17/19 16:58) Past Medical History - Past Medical History Cardiac Medical History: Reports: Hx Hypercholesterolemia, Hx Hypertension Neurological Medical History: Reports: Hx Cerebrovascular Accident, Hx Migraine Renal/ Medical History: Denies: Hx Peritoneal Dialysis GI Medical History: Reports: Hx Gastroesophageal Reflux Disease Psychiatric Medical History: Reports: Hx Depression Past Surgical History: Reports: Hx Abdominal Surgery, Hx Appendectomy, Hx Hysterectomy, Other - Lasik left eye. - Immunizations Hx Diphtheria, Pertussis, Tetanus Vaccination: Yes Physical Exam - Vital signs Vitals: Temp Pulse Resp BP Pulse Ox 98.2 F 61 20 173/78 H 98 04/30/20 17:24 04/30/20 17:24 04/30/20 17:24 04/30/20 17:24 04/30/20 17:24 - Respiratory Chest status: Tender - Cardiovascular Rhythm: Regular Heart sounds: S1 appreciated, S2 appreciated - Neurological Orientation: AAOx4 David Coma Scale Eye Opening: Spontaneous [place] Coma Scale Verbal: Oriented Princeton Coma Scale Motor: Obeys Commands David Coma Scale Total: 15 Speech: Normal Course - Vital Signs Vital signs: Temp Pulse Resp BP Pulse Ox 98.2 F 61 20 173/78 H 98 04/30/20 17:24 04/30/20 17:24 04/30/20 17:24 04/30/20 17:24 04/30/20 17:24 Doctor's Discharge - Discharge [facility]errals: [facility] [[facility]] - Follow up as needed
[2020-04-30 18:11] LABS: ABSOLUTE EOSINOPHILS # (AUTO) 0.1 10^3/uL (0.0-0.6); ABSOLUTE LYMPHOCYTES (AUTO) 2.2 10^3/uL (0.5-4.7); ABSOLUTE MONOCYTES (AUTO) 0.4 10^3/uL (0.1-1.4); ABSOLUTE NEUT (AUTO) 3.5 10^3/uL (1.7-8.2); BASOPHILS % (AUTO) 0.7 % (0-2); EOSINOPHILS % (AUTO) 1.3 % (0-6); HEMATOCRIT 40.8 % (36.0-47.0); HEMOGLOBIN 13.6 g/dL (12.0-15.5); MEAN CORPUSCULAR HEMOGLOBIN 29.3 pg (27.0-33.4); MEAN CORPUSCULAR HGB CONC 33.2 g/dL (32.0-36.0); MEAN CORPUSCULAR VOLUME 88 fl (80-97); MONOCYTES % (AUTO) 6.4 % (3-13); PLATELET COUNT 288 10^3/uL (150-450); RED BLOOD COUNT 4.62 10^6/uL (3.72-5.28); RED CELL DISTRIBUTION WIDTH 13.9 % (11.5-14.0); SEGMENTED NEUTROPHILS % (AUTO) 56.6 % (42-78); TOTAL CELLS COUNTED % (AUTO) 100 %; WHITE BLOOD COUNT 6.3 10^3/uL (4.0-10.5)
--- NOTE | 2020-04-30 18:15 | RADIOLOGY REPORT (SQ) ---
EXAM DESCRIPTION: CHEST SINGLE VIEW IMAGES COMPLETED DATE/TIME: 04/30/2020 4:56 pm REASON FOR STUDY: cp COMPARISON: Chest radiograph, 07/28/2019 EXAM PARAMETERS: NUMBER OF VIEWS: One view. TECHNIQUE: Single frontal radiographic view of the chest acquired. RADIATION DOSE: NA LIMITATIONS: None. FINDINGS: LUNGS AND PLEURA: No opacities, masses or pneumothorax. No pleural effusion. MEDIASTINUM AND HILAR STRUCTURES: No masses. Contour normal. HEART AND VASCULAR STRUCTURES: Heart normal in size. Normal vasculature. BONES: No acute findings. HARDWARE: None in the chest. OTHER: No other significant finding. IMPRESSION: NO ACUTE RADIOGRAPHIC FINDING IN THE CHEST. TECHNICAL DOCUMENTATION: JOB ID: [id number] [email or web address] All Rights Reserved Reading location - IP/workstation name: [email or web address]
[2020-04-30 18:21] LABS: ALBUMIN 4.6 g/dL (3.5-5.0); ALKALINE PHOSPHATASE 55 U/L (38-126); ANION GAP 11 (5-19); ASPARTATE AMINO TRANSFERASE 25 U/L (14-36); BILIRUBIN,DIRECT 0.1 mg/dL (0.0-0.4); BILIRUBIN,TOTAL 0.4 mg/dL (0.2-1.3); BLOOD UREA NITROGEN 13 mg/dL (7-20); CALCIUM 9.3 mg/dL (8.4-10.2); CARBON DIOXIDE 23 mmol/L (22-30); CHLORIDE 109 mmol/L (98-107); GLUCOSE 85 mg/dL (75-110); POTASSIUM 4.1 mmol/L (3.6-5.0); TOTAL PROTEIN 7.1 g/dL (6.3-8.2)
--- NOTE | 2020-04-30 18:27 | RADIOLOGY REPORT (SQ) ---
EXAM DESCRIPTION: CT HEAD WITHOUT IMAGES COMPLETED DATE/TIME: 04/30/2020 4:58 pm REASON FOR STUDY: dizzy, CARCAMO, Hx aneurysm clipping COMPARISON: 12/17/2019. TECHNIQUE: Axial images acquired through the brain without intravenous contrast. Images reviewed wi th bone, brain and subdural windows. Additional sagittal and coronal reconstructions were generated. Images stored on PACS. All CT scanners at this facility use dose modulation, iterative reconstruction, and/or weight based d osing when appropriate to reduce radiation dose to as low as reasonably achievable (ALARA). [facility]: Dose Right [facility]: CareDose [facility]: Dose Right [facility]: Teradose 4D [facility]: [employer] Technologies RADIATION DOSE: CT Rad equipment meets quality standard of care and radiation dose reduction techniq ues were employed. CTDIvol: 53.2 mGy. DLP: 1044 mGy-cm. mGy. LIMITATIONS: None. FINDINGS: VENTRICLES: Normal size and contour. CEREBRUM: Surgical clip in the supraclinoid midline frontal region area of HAZEL, unchanged from prior. No masses. No hemorrhage. No midline shift. No evidence for acute infarction. Normal platt/white matter differentiation. No areas of low density in the white matter. CEREBELLUM: No masses. No hemorrhage. No alteration of density. No evidence for acute infarction. EXTRAAXIAL SPACES: No fluid collections. No masses. ORBITS AND GLOBE: No intra- or extraconal masses. Normal contour of globe without masses. CALVARIUM: No fracture. PARANASAL SINUSES: No fluid or mucosal thickening. SOFT TISSUES: No mass or hematoma. OTHER: No other significant finding. IMPRESSION: No acute intracranial hemorrhage, mass, or evidence of acute territorial infarct. Posts urgical changes stable. EVIDENCE OF ACUTE STROKE: NO. COMMENT: Quality ID # [id number]: Final reports with documentation of one or more dose reduction techniques (e.g., Automated exposure control, adjustment of the mA and/or kV according to patient size, use of iterative reconstruction technique) TECHNICAL DOCUMENTATION: JOB ID: [id number] [employer]- All Rights Reserved Reading location - IP/workstation name: [email or web address]
[2020-04-30] MEDS ORDERED: MAGNESIUM OXIDE 400 MG TABLET PO ONE (21:22)
[2020-04-30] MEDS ORDERED: BUTALB/ACETAMINOPHEN/CAFFEINE 1 TAB EACH PO ONE (21:24)
[2020-04-30] MEDS ORDERED: PHENOBARBITAL 64.8 MG TABLET PO ONE (21:24)
--- NOTE | 2020-04-30 21:26 | ER Document Report ---
ED Headache - General Chief Complaint: Dizziness Stated Complaint: HEADACHE Time Seen by Provider: 04/30/20 17:21 Primary Care Provider: [facility] [Provider Group] - Follow up in 1 week STEVAN SUNSHINE MD [NO LOCAL MD] - Follow up in 1 week [facility] [[facility] - Follow up in 3-5 days Notes: Patient is a 59-year-old female presents emergency department with a chief complaint of on and off headache for the past about 3 weeks. Patient does have history of migraines. States this feels similar, but states that she feels like this is more of a sinus infection. Patient states that she has on and off diarrhea with chills. Denies any nausea or vomiting. Jadon reports that the patient has been working a lot in the house. Patient has history of a TIA, currently on Plavix, hypertension,Hyperlipidemia, and coil placement for an aneurysm. Denies any weakness, numbness, or tingling. States that she had a little bit of chest pain that would come and go that started today. TRAVEL OUTSIDE OF THE [place] IN LAST 30 DAYS: No - Related Data Allergies/Adverse Reactions: codeine Adverse Reaction (Verified 12/17/19 16:58) Past Medical History - Social History Smoking Status: Unknown if Ever Smoked Family History: Reviewed & Not Pertinent - Past Medical History Cardiac Medical History: Reports: Hx Hypercholesterolemia, Hx Hypertension Neurological Medical History: Reports: Hx Cerebrovascular Accident, Hx Migraine Renal/ Medical History: Denies: Hx Peritoneal Dialysis GI Medical History: Reports: Hx Gastroesophageal Reflux Disease Psychiatric Medical History: Reports: Hx Depression Past Surgical History: Reports: Hx Abdominal Surgery, Hx Appendectomy, Hx Hysterectomy, Other - Lasik left eye. - Immunizations Hx Diphtheria, Pertussis, Tetanus Vaccination: Yes Review of Systems - Review of Systems Notes: REVIEW OF SYSTEMS: CONSTITUTIONAL : Denies recent illness. Denies recent unintentional weight loss. See HPI for EENT: Denies eye, ear, throat, or mouth pain, discharge, or symptoms. See HPI. CARDIOVASCULAR: See HPI. RESPIRATORY: Denies shortness of breath, cough, congestion, difficulty breathing, or wheezing. GASTROINTESTINAL: Denies nausea, vomiting, and diarrhea. Denies abdominal pain. Denies constipation. GENITOURINARY: Denies difficulty urinating, burning, blood in urine, urgency or frequency. MUSCULOSKELETAL: Denies neck and back pain. Denies joint pain or swelling. SKIN: Denies rash, itchiness, or lesions HEMATOLOGIC : Denies easy bruising or bleeding. LYMPHATIC: Denies swollen, painful, enlarged glands. NEUROLOGICAL: Denies no numbness or tingling denies weakness. Denies altered mental status. Denies alteration in speech. See HPI. PSYCHIATRIC: Denies stress, anxiety, alteration in sleep patterns, or depression. All other systems reviewed and negative. Physical Exam - Vital signs Vitals: Temp Pulse Resp BP Pulse Ox 98.2 F 61 20 173/78 H 98 04/30/20 17:24 04/30/20 17:24 04/30/20 17:24 04/30/20 17:24 04/30/20 17:24 - Notes Notes: PHYSICAL EXAMINATION: GENERAL: Appears well, healthy, well-nourished, no acute distress. HEAD: Normocephalic, atraumatic. EYES: PERRL, conjunctiva normal, all extraocular movements intact, sclera nonicteric ENT: Moist mucous membranes. NECK: Supple, no noticeable swelling, redness, rash. Normal range of motion. LUNGS: Equal breath sounds bilaterally and clear to auscultation. No wheezes rales or rhonchi. CARDIOVASCULAR: S1-S2, regular rate, regular rhythm. Radial pulses 2+, normal. ABDOMEN: Normoactive bowel sounds. Soft, nontender, no guarding, no rebound tenderness, and no masses palpated. EXTREMITIES: Normal strength and range of motion, no pitting or edema. No cyanosis. NEUROLOGICAL: Moves all extremities upon command. Strength 5/5 in all extremities. PSYCH: Normal mood, normal affect. SKIN: Warm, dry. No rash, lesions, ulcerations noted. Normal skin turgor. Course - Re-evaluation Re-evalutation: 04/30/20 21:26 CT of the head and chest x-ray are unremarkable. Labs are also unremarkable. Troponin is negative x2. At this time, patient will receive her normal migraine cocktail with Fioricet, phenobarbital, and magnesium. Advised patient to follow-up with the neurologist. The patient was evaluated during the global COVID-19 pandemic and that diagnosis was suspected/considered upon their initial presentation. Their evaluation, treatment and testing was consistent with current guidelines for patients who present with complaints or symptoms that may be related to COVID-19. Patient agrees to quarantine. Follow-up precautions were given. Verbal discharge instructions were given to the patient. They verbalized understanding. They are stable for discharge. - Vital Signs Vital signs: Temp Pulse Resp BP Pulse Ox 98.2 F 61 18 144/79 H 100 04/30/20 17:24 04/30/20 17:24 04/30/20 20:25 04/30/20 20:25 04/30/20 20:25 - Laboratory Results Result Diagrams: 04/30/20 17:39 04/30/20 17:39 Laboratory Results Interpreted: 04/30/20 17:39 Chloride 109 H Critical Laboratory Results Reviewed: No Critical Results - Radiology Results Critical Radiology Results Reviewed: No Critical Results - EKG Interpretation by Me Additional EKG results interpreted by me: 04/30/20 21:30 Sinus rhythm. Rate 62. AR 152; QRS 76; QT 432; QTc 439. No ST elevations or depressions noted. No ectopy noted. No acute change from previous EKG done on 12/17/2019. Discharge - Discharge Clinical Impression: Headache Qualifiers: Headache type: unspecified Headache chronicity pattern: unspecified pattern Intractability: intractable Qualified Code(s): R51.9 - Headache, unspecified Chest pain Qualifiers: Chest pain type: unspecified Qualified Code(s): R07.9 - Chest pain, unspecified Condition: Stable Disposition: HOME, SELF-CARE Additional Instructions: You were seen today in the emergency department for a headache and chest pain. Your work-up is very reassuring. You received a migraine cocktail. Please take it easy for the next couple of days. Please follow-up with neurology in regards to your migraines. Follow-up with your primary care provider in regards to this visit. As a person under investigation for COVID-19, the [place] Department of Health and Human Services (division on public health) advises you to adhere to the following guidance until your test results are reported to you. If your test result is positive, you will receive additional information from your provider and your local health department at that time. Remain at home until you are cleared by the health provider or public health authorities. Keep a log of visitors to your home, notify any visitors to your home of your isolation status. If you plan to move to a new address or leave the county, notify the local health department in your County. Call your Doctor or seek care if you have an urgent medical need. Before seeking medical care, call him to get instructions from the provider before arriving at the medical office, clinic, or hospital. Notify them that you are being tested for the virus (COVID-19) so that arrangements can be made, as necessary, to p revent transmission to others in the healthcare setting. Next, notify the local health department in your county. Referrals: [facility] [[facility]] - Follow up in 3-5 days STEVAN SUNSHINE MD [NO LOCAL MD] - Follow up in 1 week [facility] [Provider Group] - Follow up in 1 week
[2020-04-30 21:38] VITALS: BP 151/74
--- NOTE | 2020-05-01 13:42 | EKG REPORT ---
SEVERITY:- NORMAL ECG - SINUS RHYTHM : Confirmed by: Baylee Monsalve 01-May-2020 13:41:13
== END 2020-04-30 21:43 | disposition home or self-care (01) ==
LOC: ER 17:14
DX: R07.9 Chest pain, unspecified (principal); R51.9 Headache, unspecified; R42 Dizziness and giddiness; R19.7 Diarrhea, unspecified; Z86.73 Personal history of transient ischemic attack (TIA), and cerebral infarction without residual deficits; Z79.02 Long term (current) use of antithrombotics/antiplatelets; I10 Essential (primary) hypertension; E78.5 Hyperlipidemia, unspecified; Z88.8 Allergy status to other drugs, medicaments and biological substances; Z20.828 Contact with and (suspected) exposure to other viral communicable diseases
CPT/HCPCS: 93005; 99285; 36415; 83735; 85025; 87635; 80053; 84484; 71045; 70450; 93010; J3490; C9803

== ENCOUNTER 2020-05-02 16:30 | Emergency (ER) | payer MEDICARE, OTHER ==
[2020-05-02] MEDS ORDERED: ACETAMINOPHEN 325 MG TABLET PO ONE (17:19)
--- NOTE | 2020-05-02 17:19 | ER Document Report ---
ED Head/Face/Scalp Injury - General Chief Complaint: Facial Injury Stated Complaint: FACIAL INJURY Time Seen by Provider: 05/02/20 17:04 Primary Care Provider: SEBASTIÁN,RENZO [Primary Care Provider] - Follow up as needed TRAVEL OUTSIDE OF THE [place] IN LAST 30 DAYS: No - HPI Notes: 59-year-old female presents to ED for evaluation of left-sided facial injury sustained earlier today. Patient reports that she was struck in knee left zygomatic region with a window pain. 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 Notes that she has increased pain with palpation. She does take aspirin and clopidogrel. States that she has not taken her nighttime dosage of aspirin. Reports no blurred vision or double vision. She denies a headache. She does report some ongoing sinus tenderness and has been evaluated for acute sinusitis as well as Covid several times. She is not currently on any antibiotics. Patient did not take pain management prior to her arrival here. She denies loss of consciousness, dizziness, lightheadedness, neck pain, or changes in bowel or bladder function. Denies difficulties with ambulation or paresthesias. - Related Data Allergies/Adverse Reactions: codeine Adverse Reaction (Verified 12/17/19 16:58) Past Medical History - Social History Smoking Status: Unknown if Ever Smoked Family History: Reviewed & Not Pertinent - Past Medical History Cardiac Medical History: Reports: Hx Hypercholesterolemia, Hx Hypertension Neurological Medical History: Reports: Hx Cerebrovascular Accident, Hx Migraine Renal/ Medical History: Denies: Hx Peritoneal Dialysis GI Medical History: Reports: Hx Gastroesophageal Reflux Disease Psychiatric Medical History: Reports: Hx Depression Past Surgical History: Reports: Hx Abdominal Surgery, Hx Appendectomy, Hx Hysterectomy, Other - Lasik left eye. - Immunizations Hx Diphtheria, Pertussis, Tetanus Vaccination: Yes Review of Systems - Review of Systems Notes: Constitutional: Negative for fever. HENT: Negative for sore throat. Left sided facial swelling. Eyes: Negative for visual changes. Cardiovascular: Negative for chest pain. Respiratory: Negative for shortness of breath. Gastrointestinal: Negative for abdominal pain, vomiting or diarrhea. Genitourinary: Negative for dysuria. Musculoskeletal: Negative for back pain. Skin: Negative for rash. Neurological: Negative for headaches, weakness or numbness. 10 point ROS negative except as marked above and in HPI. Physical Exam - Vital signs Vitals: Temp Pulse Resp BP Pulse Ox 98.2 F 74 18 121/60 99 05/02/20 17:17 05/02/20 17:17 05/02/20 17:17 05/02/20 17:17 05/02/20 17:17 General: No acute distress. Alert and oriented x3. Sitting comfortably in a stretcher. Skin: No jaundice, pallor, or erythema. Warm and dry. Ecchymosis to left zygomatic region. Tenderness to palpation. HEENT: No evidence of lai signs. No evidence of racoon eyes. Pupils are equal round reactive to light and accommodation. Extraocular movements are intact. TMs without erythema or bulging. No hemotympanum bilaterally. Canals are clear. Nares patent without any discharge. Teeth in good condition. Pharynx without erythema, edema, or exudates. No tonsillar enlargement. Uvula is midline. Airway is patent. Neck: Supple and nontender, with no lymphadenopathy. No cervical spinal tenderness. Full range of motion. Heart: Regular rate and rhythm. S1,S2. No murmurs, rubs, or gallops. Lungs: Clear to ausculation bilaterally. No wheezes, rhonchi, rales. Equal chest expansion. No retractions. Abdomen: Soft, nontender to palpation, nondistended. Positive bowel sounds in all 4 quadrants. No masses. No CVA tenderness bilaterally. Back: No midline spinal TTP. Full range of motion. Neuro: Cranial nerves II-XII are intact. GCS 15. Moving all extremities without discomfort. Strength 5+ in all extremities. Sensation intact x4. No pronator drift. Coordination intact x4. Gait steady. Deep tendon reflexes 2+ upper and lower extremities bilaterally. Radial and pedal pulses 2+ bilaterally. Psych: Mood and affect appropriate. Course - Re-evaluation Re-evalutation: 05/02/20 22:07 59-year-old female presents to ED for evaluation of facial contusion sustained earlier today. Patient with swelling along the left zygomatic region. Denies visual disturbances. Patient is on aspirin and Plavix. Patient had a head CT which was negative for hemorrhage or fracture. CT of the cervical spine is also negative at this time. CT of the facial bones does show soft tissue swelling on the left side. No evidence of fracture or retro-orbital hemorrhage. Imaging is discussed with patient. Patient most likely has a contusion. I discussed with the patient potential course of contusion and recommendations for treatment. Patient is advised to rest and avoid strenuous activity. Avoid contact sports for at least 2 weeks. Use Tylenol as needed for headache, avoid NSAIDs. Patient also placed on doxycycline due to her ongoing sinusitis issues. Patient will be given information about head injury and concussion to review. Patient is advised if they have any worsening or concerning symptoms that they should return to the emergency department for reevaluation. Patient is advised to follow up with primary care. Patient understands indications to return to the ER. Patient is agreeable with this plan. - Vital Signs Vital signs: Temp Pulse Resp BP Pulse Ox 98.4 F 76 18 120/62 100 05/02/20 19:12 05/02/20 19:12 05/02/20 19:12 05/02/20 19:12 05/02/20 19:12 - Laboratory Results Critical Laboratory Results Reviewed: No Critical Results - Radiology Results Critical Radiology Results Reviewed: No Critical Results Discharge - Discharge Clinical Impression: Facial contusion Qualifiers: Encounter type: initial encounter Qualified Code(s): S00.83XA - Contusion of other part of head, initial encounter Closed head injury Qualifiers: Encounter type: initial encounter Qualified Code(s): S09.90XA - Unspecified injury of head, initial encounter Acute sinusitis Qualifiers: Sinusitis location: maxillary Recurrence: non-recurrent Qualified Code(s): J01.00 - Acute maxillary sinusitis, unspecified Condition: Stable Disposition: HOME, SELF-CARE Instructions: Contusion ([facility]) Prescriptions: Acetaminophen [Tylenol 325 mg Tablet] 650 mg PO Q6HP PRN #30 tablet PRN Reason: Doxycycline Monohydrate 100 mg PO BID #20 capsule Referrals: [facility] [[facility]] - Follow up as needed
--- NOTE | 2020-05-02 17:56 | RADIOLOGY REPORT (SQ) ---
EXAM DESCRIPTION: CT HEAD WITHOUT; CT FACIAL AREA WITHOUT; CT CERVICAL SPINE WITHOUT IMAGES COMPLETED DATE/TIME: 05/02/2020 5:36 pm REASON FOR STUDY: trauma COMPARISON: See below. TECHNIQUE: Axial images acquired through the brain, cervical spine and facial bones without intraven ous contrast. Images reviewed with brain, subdural, lung, soft tissue and bone windows. Reconstruct ed coronal and sagittal MPR images reviewed. Images stored on PACS. All CT scanners at this facility use dose modulation, iterative reconstruction, and/or weight based d osing when appropriate to reduce radiation dose to as low as reasonably achievable (ALARA). [facility]: Dose Right [facility]: CareDose [facility]: Dose Right [facility]: Teradose 4D [facility]: [employer] RADIATION DOSE: CT Rad equipment meets quality standard of care and radiation dose reduction techniq ues were employed. CTDIvol: 53.2 mGy. DLP: 1124 mGy-cm.; CT Rad equipment meets quality standard of c are and radiation dose reduction techniques were employed. CTDIvol: 30.4 mGy. DLP: 674 mGy-cm.; CT Ra d equipment meets quality standard of care and radiation dose reduction techniques were employed. CTD Ivol: 19.0 mGy. DLP: 385 mGy-cm.mGy. LIMITATIONS: None. FINDINGS: Brain 04/30/2020 prior. No hemorrhage or mass or shift. No skull fracture. Orbits intact. Clear paranasal sinuses. Metallic artifact along the skullbase presumably related to previous aneurysm coiling. This is chron ic. Cervical spine Normal alighment. No fracture. Soft tissues normal, no pneumothorax. Facial bones No facial fracture identified. Left periorbital soft tissue swelling. No foreign body. Globes and orbits otherwise intact. Clear paranasal sinuses. IMPRESSION: No acute brain abnormality. No acute cervical spine abnormality Left periorbital soft tissue swelling without fracture. Orbits otherwise intact. TECHNICAL DOCUMENTATION: JOB ID: [id number] Quality ID # [id number]: Final reports with documentation of one or more dose reduction techniques (e.g., Au tomated exposure control, adjustment of the mA and/or kV according to patient size, use of iterative reconstruction technique) 2010 [employer]- All Rights Reserved Reading location - IP/workstation name: [email or web address]
[2020-05-02 19:13] VITALS: BP 120/62
== END 2020-05-02 19:12 | disposition home or self-care (01) ==
LOC: ER 16:30
DX: S00.83XA Contusion of other part of head, initial encounter (principal); S09.90XA Unspecified injury of head, initial encounter; J01.00 Acute maxillary sinusitis, unspecified; R51.9 Headache, unspecified; W22.8XXA Striking against or struck by other objects, initial encounter; Z79.899 Other long term (current) drug therapy; Z79.82 Long term (current) use of aspirin; Z88.8 Allergy status to other drugs, medicaments and biological substances; I10 Essential (primary) hypertension
CPT/HCPCS: 99284; 70450; 70486; 72125; A9270